=== PATIENT | female | born 1930 | race Caucasian/White ===

== ENCOUNTER 2017-02-01 17:43 | Observation (INO) | payer MEDICARE ==
[~2017-02-01] VITALS: Ht 180.3 cm; Wt 76.0 kg
[~2017-02-01 17:43] MED LIST: ASPI81 PO; CENTTAB9 PO; CEPH500C3 PO; LOVA10TA PO; MULTLIQ PO; TOPR50TA PO; VITA-13 PO; ZOLP1TAB32 PO
[2017-02-01 17:45] VITALS: BP 135/90; PULSE 60; RESP 18; O2SAT 100
--- NOTE | 2017-02-01 18:01 | PD ---
HPI Chief Complaint: Fall Time Seen by Provider: 17:46 Travel History International Travel<30 days: No Contact w/Intl Traveler<30days: No Traveled to known affect area: No History of Present Illness HPI Patient 86-year-old female with a history of repeated falls presents for by EMS from assisted living facility for evaluation of fall today. Patient states she tripped and fell. Denies any chest pain shortness of breath dizziness weakness or syncope. Patient states she fell and hit the left side of her head also complaining of left shoulder left knee pain. Denies any loss of consciousness. PFSH Past Medical History Blood Disorders: No Cancer: No Cardiovascular Problems: Yes Diminished Hearing: Yes (BILAT HEARING AIDS) Endocrine: No GERD: Yes Genitourinary: No Hypertension: Yes (HYPER T ) Musculoskeletal: No Neurologic: No Reproductive: Yes (HYSTERECTOMY ) Respiratory: No Immunizations Current: No Menopausal: Yes Past Surgical History Abdominal Surgery: No Appendectomy: Yes Gynecologic Surgery: Yes (PT DENIES ANY HISTORY OF UTERINE CA ) Hysterectomy: Yes Tonsillectomy: Yes Other Surgery: Yes (HYSTERECTOMY, UTERIOUS ) Social History Alcohol Use: Yes (1 DRINK A DAY.) Tobacco Use: No Substance Use: No Allergies-Medications (Allergen,Severity, Reaction): Coded Allergies: Codeine (Verified Adverse Reaction, Intermediate, NAUSEA, 02/01/17) Reported Meds & Prescriptions Reported Meds & Active Scripts Active Ultram (Tramadol HCl) 50 Mg Tab 50 Mg PO Q6H PRN Reported Clonidine (Clonidine HCl) 0.1 Mg Tab 0.1 Mg PO BID PRN D3 (Cholecalciferol) 1,000 Unit Cap 1,000 Units PO DAILY Aspirin EC (Aspirin) 81 Mg Tabdr 81 Mg PO DAILY Centrum (Multiple Vitamins W/ Minerals) 1 Tab 1 Tab PO DAILY Metoprolol Succinate ER 24 HR (Metoprolol Succinate) 50 Mg Tab 50 Mg PO BID Lovastatin 10 Mg Tab 10 Mg PO HS Review of Systems Except as stated in HPI: all other systems reviewed are Neg Physical Exam Narrative GENERAL: WD/WN in nad SKIN: Warm and dry. Hematoma and ecchymosis over left clavicle, left lateral proximal humerus and left knee. HEAD: Atraumatic. Normocephalic. EYES: Pupils equal and round. No scleral icterus. No injection or drainage. ENT: No nasal bleeding or discharge. Mucous membranes pink and moist. NECK: Trachea midline. No JVD. CARDIOVASCULAR: Regular rate and rhythm. RESPIRATORY: No accessory muscle use. Clear to auscultation. Breath sounds equal bilaterally. GASTROINTESTINAL: Abdomen soft, non-tender, nondistended. Hepatic and splenic margins not palpable. MUSCULOSKELETAL: Extremities without clubbing, cyanosis, or edema. Swelling and ecchymosis of the left proximal humerus, clavicle and left knee. Pulses motor and sensory intact distally in all four extremities. Compartments are soft. C/ T/L spine non-tender and no step off. NEUROLOGICAL: Awake and alert. No obvious cranial nerve deficits. Motor grossly within normal limits. Five out of 5 muscle strength in the arms and legs. Normal speech. PSYCHIATRIC: Appropriate mood and affect; insight and judgment normal. Data Data Last Documented VS Vital Signs Date Time Temp Pulse Resp B/P Pulse Ox O2 Delivery O2 Flow Rate FiO2 02/01/17 19:48 20 02/01/17 19:10 98.1 63 142/[address] Brain W/O Iv Contrast(Rout) (02/01/17 ) Ct Cerv Spine W/O Contrast (02/01/17 ) Shoulder, Complete (>2vws) (02/01/17 ) Humerus (Min 2vws) (02/01/17 ) Knee, Complete (4vws) (02/01/17 ) Hip, Uni(Ap&Lat) W Ap Pelvis (02/01/17 ) Tramadol (Ultram) (02/01/17 18:15) Chest, Single Ap (02/01/17 ) Splint Or Brace Apply/Monitor (02/01/17 19:32) Complete Blood Count With Diff (02/01/17 20:21) Comprehensive Metabolic Panel (02/01/17 20:21) Urinalysis - C+S If Indicated (02/01/17 20:21) Iv Access Insert/Monitor (02/01/17 20:21) Ecg Monitoring (02/01/17 20:21) Oximetry (02/01/17 20:21) Sodium Chloride 0.9% Flush (Ns Flush) (02/01/17 20:30) Admit Order (Ed Use Only) (02/01/17 ) MDM Medical Decision Making Medical Screen Exam Complete: Yes Emergency Medical Condition: Yes Differential Diagnosis Shoulder fracture, head injury, left knee fracture, strain, sprain, fall. Narrative Course Last 24 hours Impressions Shoulder X-Ray 02/01/17 Signed Impressions: Service Date/Time: Wednesday, February 01, 2017 18:45 - CONCLUSION: 1. Mildly comminuted and displaced fracture of the distal clavicle. No other fractures are seen. Gregory Crisostomo MD Knee X-Ray 02/01/17 Signed Impressions: Service Date/Time: Wednesday, February 01, 2017 18:53 - CONCLUSION: 1. Soft tissue swelling at the anterior knee. No acute bony abnormality identified. Gregory Crisostomo MD Humerus X-Ray 02/01/17 Signed Impressions: Service Date/Time: Wednesday, February 01, 2017 18:49 - CONCLUSION: 1. Mildly comminuted and displaced distal clavicle fracture. Negative for humerus fracture. Gregory Crisostomo MD Hip and Pelvis X-Ray 02/01/17 Signed Impressions: Service Date/Time: Wednesday, February 01, 2017 18:41 - CONCLUSION: 1. Remote healed fractures of the left superior and inferior pubic rami. No acute fracture identified. Gregory Crisostomo MD Head CT 02/01/17 Signed Impressions: Service Date/Time: Wednesday, February 01, 2017 18:27 - CONCLUSION: Normal examination for a patient of this age. No significant change has occurred. Gregory Crisostomo MD Chest X-Ray 02/01/17 Signed Impressions: Service Date/Time: Wednesday, February 01, 2017 18:56 - CONCLUSION: 1. Slightly comminuted distal left clavicle fracture. Linear scarring left lung base. Gregory Crisostomo MD Cervical Spine CT 02/01/17 Signed Impressions: Service Date/Time: Wednesday, February 01, 2017 18:27 - CONCLUSION: 1. No acute findings. Mild degenerative disc disease and facet arthropathy. No significant bony canal stenosis. Gregory Crisostomo MD Patient appears well and in nad. Ultram given, patient comfortable. Patient difficult to ambulate, uses walker at [facility]. Patient son arrives and also concerned for patient safety at [facility]. I agree. She has no safe discharge given cannot use walker as will be in sling. Discussed with Jaydon KWON for [facility] for admission. Diagnosis Primary Impression: Clavicle fracture, shaft Qualified Code: S42.022A - Closed displaced fracture of shaft of left clavicle , initial encounter Admitting Information Admitting Physician Requests: Observation Referrals: Blu Golden MD Med/Other Pt SpecificInfo: Prescription(s) given Scripts Tramadol (Ultram)50 Mg Tab50 Mg PO Q6H PRN (PAIN) #12 TAB Ref 0 Prov:Alon Lopez MD 02/01/17 Disposition: 01 DISCHARGE HOME Condition: Stable Alon Lopez MD Feb 01, 2017 18:01
[2017-02-01] MEDS ORDERED: CHOL100025 CHEW (18:03)
[2017-02-01] MEDS ORDERED: ASPI81CH37 CHEW (18:03)
[2017-02-01] MEDS ORDERED: METO50TA11 PO (18:03)
[2017-02-01] MEDS ORDERED: AMBI5TAB PO (18:03)
[2017-02-01] MEDS ORDERED: LOVA10TA PO (18:03)
[2017-02-01] MEDS ORDERED: MULT-6 PO (18:04)
[2017-02-01] MEDS ORDERED: traMADol HCL 50 MG TAB PO ONE (18:15)
--- NOTE | 2017-02-01 18:55 | RADRPT ---
EXAM DATE/TIME: 02/01/2017 18:27 [facility] COMPARISON: CT BRAIN W/O CONTRAST, June 16, 2010, 12:21. INDICATIONS : Trauma; fall. RADIATION DOSE: 37.60 CTDIvol (mGy) MEDICAL HISTORY : Hypertension. Cardiovascular disease SURGICAL HISTORY : Hysterectomy. Appendectomy.Tonsillectomy. ENCOUNTER: Initial ACUITY: 1 day PAIN SCALE: 5/10 LOCATION: cranial TECHNIQUE: Multiple contiguous axial images were obtained of the head. Using automated exposure control and adj ustment of the mA and/or kV according to patient size, radiation dose was kept as low as reasonably a chievable to obtain optimal diagnostic quality images. FINDINGS: CEREBRUM: The ventricles are normal for age. No evidence of midline shift, mass lesion, hemorrhage or acute in farction. No extra-axial fluid collections are seen. POSTERIOR FOSSA: The cerebellum and brainstem are intact. The 4th ventricle is midline. The cerebellopontine angle i s unremarkable. EXTRACRANIAL: The visualized portion of the orbits is intact. SKULL: The calvaria is intact. No evidence of skull fracture. CONCLUSION: Normal examination for a patient of this age. No significant change has occurred. Gregory Crisostomo MD on February 01, 2017 at 18:53 Board Certified Radiologist. This report was verified electronically.
--- NOTE | 2017-02-01 18:58 | RADRPT ---
EXAM DATE/TIME: 02/01/2017 18:27 [facility] COMPARISON: No previous studies available for comparison. INDICATIONS : Trauma; fall. RADIATION DOSE: 16.45 CTDIvol (mGy) MEDICAL HISTORY : Hypertension. Cardiovascular disease SURGICAL HISTORY : Hysterectomy. Appendectomy.Tonsillectomy. ENCOUNTER: Initial ACUITY: 1 day PAIN SCALE: 5/10 LOCATION: neck TECHNIQUE: Volumetric scanning of the cervical spine was performed. Multiplanar reconstructions in the sagittal, coronal and oblique axial planes were performed. Using automated exposure control and adjustment o f the mA and/or kV according to patient size, radiation dose was kept as low as reasonably achievable to obtain optimal diagnostic quality images. FINDINGS: VERTEBRAE: Normal vertebral body height. ALIGNMENT: No evidence of subluxation. C2-C3: The bony spinal canal is normal in size. No evidence of disc bulge or herniation. The neural forami na are bilaterally patent. C3-C4: The bony spinal canal is normal in size. No evidence of disc bulge or herniation. The neural forami na are bilaterally patent. C4-C5: The bony spinal canal is normal in size. No evidence of disc bulge or herniation. The neural forami na are bilaterally patent. C5-C6: The bony spinal canal is normal in size. No evidence of disc bulge or herniation. The neural forami na are bilaterally patent. C6-C7: The bony spinal canal is normal in size. No evidence of disc bulge or herniation. The neural forami na are bilaterally patent. C7-T1: The bony spinal canal is normal in size. No evidence of disc bulge or herniation. The neural forami na are bilaterally patent. CONCLUSION: 1. No acute findings. Mild degenerative disc disease and facet arthropathy. No significant bony canal stenosis. Gregory Crisostomo MD on February 01, 2017 at 18:54 Board Certified Radiologist. This report was verified electronically.
[2017-02-01 19:10] VITALS: BP 142/72; PULSE 63; RESP 20; TEMP 98.1; O2SAT 97
--- NOTE | 2017-02-01 19:32 | RADRPT ---
EXAM DATE/TIME: 02/01/2017 18:41 [facility] COMPARISON: No previous studies available for comparison. INDICATIONS : Fall. MEDICAL HISTORY : None. SURGICAL HISTORY : None. ENCOUNTER: Initial ACUITY: 1 day PAIN SCORE: 0/10 LOCATION: Left hip FINDINGS: Remote healed fractures of left pubic bone and superior and inferior pubic rami. Mild osteoarthritis of the left hip. No acute fracture or dislocation. CONCLUSION: 1. Remote healed fractures of the left superior and inferior pubic rami. No acute fracture identified . Gregory Crisostomo MD on February 01, 2017 at 19:29 Board Certified Radiologist. This report was verified electronically.
--- NOTE | 2017-02-01 19:33 | RADRPT ---
EXAM DATE/TIME: 02/01/2017 18:45 [facility] COMPARISON: No previous studies available for comparison. INDICATIONS : Fall. MEDICAL HISTORY : None. SURGICAL HISTORY : None. ENCOUNTER: Initial ACUITY: 1 day PAIN SCORE: 0/10 LOCATION: Left shoulder FINDINGS: Multiple view examination of the left shoulder demonstrates slightly comminuted fracture distal clavi khadijah. No other fractures identified. Osteopenia. CONCLUSION: 1. Mildly comminuted and displaced fracture of the distal clavicle. No other fractures are seen. Gregory Crisostomo MD on February 01, 2017 at 19:31 Board Certified Radiologist. This report was verified electronically.
--- NOTE | 2017-02-01 19:34 | RADRPT ---
EXAM DATE/TIME: 02/01/2017 18:49 [facility] COMPARISON: No previous studies available for comparison. INDICATIONS : Fall. MEDICAL HISTORY : None. SURGICAL HISTORY : None. ENCOUNTER: Initial ACUITY: 1 day PAIN SCORE: 0/10 LOCATION: Left Humerus FINDINGS: Two view examination of the left humerus demonstrates mildly comminuted and displaced fractures of th e distal left clavicle. No dislocation. No other fractures are seen. CONCLUSION: 1. Mildly comminuted and displaced distal clavicle fracture. Negative for humerus fracture. Gregory Crisostomo MD on February 01, 2017 at 19:32 Board Certified Radiologist. This report was verified electronically.
--- NOTE | 2017-02-01 19:38 | RADRPT ---
EXAM DATE/TIME: 02/01/2017 18:53 [facility] COMPARISON: No previous studies available for comparison. INDICATIONS : Fall. MEDICAL HISTORY : None. SURGICAL HISTORY : None. ENCOUNTER: Initial ACUITY: 1 day PAIN SCORE: 0/10 LOCATION: Left knee FINDINGS: There is prepatellar and pretibial soft tissue swelling. Bones are osteopenic. No acute fracture is i dentified. CONCLUSION: 1. Soft tissue swelling at the anterior knee. No acute bony abnormality identified. Gregory Crisostomo MD on February 01, 2017 at 19:33 Board Certified Radiologist. This report was verified electronically.
--- NOTE | 2017-02-01 19:39 | RADRPT ---
EXAM DATE/TIME: 02/01/2017 18:56 [facility] COMPARISON: No previous studies available for comparison. INDICATIONS : Fall. MEDICAL HISTORY : None. SURGICAL HISTORY : None. ENCOUNTER: Initial ACUITY: 1 day PAIN SCORE: 0/10 LOCATION: Bilateral chest FINDINGS: A single view of the chest demonstrates the lungs to be symmetrically aerated without evidence of mas s, infiltrate or effusion. Minimal linear scarring left lung base. Slightly comminuted distal left cl avicle fracture. CONCLUSION: 1. Slightly comminuted distal left clavicle fracture. Linear scarring left lung base. Gregory Crisostomo MD on February 01, 2017 at 19:37 Board Certified Radiologist. This report was verified electronically.
[2017-02-01] MEDS ORDERED: ULTR50TA5 PO (19:53)
[2017-02-01] MEDS ORDERED: SODIUM CHLORIDE 0.9% FLUSH 10 ML FLUSH IV FLUSH PRN ×2 (20:30→22:15)
[2017-02-01] MEDS ORDERED: METOPROLOL TARTRATE 50 MG TAB PO ONE (20:45)
[2017-02-01 20:46] VITALS: RESP 20; O2SAT 97
[2017-02-01] MEDS ORDERED: D31000CA PO (20:59)
[2017-02-01] MEDS ORDERED: ASPI81TA11 PO (20:59)
[2017-02-01] MEDS ORDERED: CLON0.1T PO (20:59)
[2017-02-01 21:07] LABS: AUTOMATED NEUTROPHIL # 15.8 TH/MM3 (1.8-7.7); BASOPHIL % 0.1 % (0.0-2.0); EOSINOPHIL % 0.1 % (0.0-4.0); HEMATOCRIT 34.4 % (35.0-46.0); HEMO FLAGS DIFF FINAL; LYMPH % 4.7 % (9.0-44.0); LYMPHOCYTE # 0.8 TH/MM3 (1.0-4.8); MEAN CELL VOLUME 90.2 FL (80.0-100.0); MEAN CORPUSCULAR HGB CONC 34.4 % (32.0-36.0); MONO % 6.2 % (0.0-8.0); NEUT % 88.9 % (16.0-70.0); PLATELET COUNT 267 TH/MM3 (150-450); RED BLOOD COUNT 3.82 MIL/MM3 (4.00-5.30); RED CELL DISTRIBUTION WIDTH 13.2 % (11.6-17.2); WHITE BLOOD COUNT 17.8 TH/MM3 (4.0-11.0)
[2017-02-01 21:44] LABS: ANION GAP 8 MEQ/L (5-15); AST (GOT) 19 U/L (15-37); BICARBONATE 29.6 MEQ/L (21.0-32.0); BLOOD UREA NITROGEN 18 MG/DL (7-18); CHLORIDE 100 MEQ/L (98-107); GLOMERULAR FILTRATION RATE 60 ML/MIN (>89); POTASSIUM 3.9 MEQ/L (3.5-5.1); SODIUM (NA) 138 MEQ/L (136-145)
[2017-02-01 21:47] LABS: ALKALINE PHOSPHATASE 53 U/L (45-117); ALT (GPT) 24 U/L (10-53); TOTAL BILIRUBIN ADULT 0.4 MG/DL (0.2-1.0)
[2017-02-01] MEDS ORDERED: traMADol HCL 50 MG TAB PO PRN (22:15)
[2017-02-01] MEDS ORDERED: ACETAMINOPHEN 325 MG TAB PO PRN (22:15)
[2017-02-01] MEDS ORDERED: ONDANSETRON HCL 4 MG/2 ML VIAL IVP PRN (22:15)
[2017-02-01] MEDS ORDERED: NALOXONE HCL 0.4 MG/ML AMP IV PRN (22:15)
[2017-02-01] MEDS ORDERED: SENNOSIDES 8.6 MG TAB PO PRN (22:15)
[2017-02-01] MEDS: SODIUM CHLOR 0.9% 1000 ML INJ 1,000 ML IV SCH (22:20)
[2017-02-01 22:34] VITALS: BP 124/59; TEMP 98.3
[2017-02-01 23:50] VITALS: BP 129/75; PULSE 83; RESP 16; TEMP 97.6; O2SAT 98
[2017-02-02] VITALS (10 sets, daily range): BP systolic 120–164; BP diastolic 6–82; PULSE 57–82; RESP 17–20; TEMP 96.7–97.9; O2SAT 94–100
[2017-02-02] MEDS ORDERED: TEMAZEPAM 7.5 MG CAP PO PRN (01:00)
[2017-02-02 03:10] LABS: BLOOD, URINE NEG (NEG); COMMENT (UR) CULT NOT INDICATED; CULTURE IF INDICATED CULT NOT INDICATED; GLUCOSE,URINE NEG (NEG); HYALINE CAST, URINE 1 /lpf (RARE); KETONE, URINE 10 mg/dL (NEG); MUCUS URINE FEW /lpf (OCC); NITRITE,URINE NEG (NEG); PH, URINE 5.5 (5.0-8.5); SQUAMOUS EPITHELIAL CELL URINE <1 /hpf (0-5); URINE COLOR YELLOW (YELLW/STRAW)
[2017-02-02 05:00] LABS: AUTOMATED NEUTROPHIL # 7.7 TH/MM3 (1.8-7.7); BASOPHIL % 0.1 % (0.0-2.0); EOSINOPHIL % 0.2 % (0.0-4.0); HEMATOCRIT 30.8 % (35.0-46.0); HEMO FLAGS DIFF FINAL; LYMPH % 9.8 % (9.0-44.0); MEAN CELL VOLUME 91.5 FL (80.0-100.0); MEAN CORPUSCULAR HEMOGLOBIN 31.3 PG (27.0-34.0); MEAN CORPUSCULAR HGB CONC 34.2 % (32.0-36.0); MONO % 11.4 % (0.0-8.0); NEUT % 78.5 % (16.0-70.0); PLATELET COUNT 216 TH/MM3 (150-450); RED BLOOD COUNT 3.36 MIL/MM3 (4.00-5.30); RED CELL DISTRIBUTION WIDTH 13.7 % (11.6-17.2); WHITE BLOOD COUNT 9.8 TH/MM3 (4.0-11.0)
[2017-02-02 05:02] LABS: BICARBONATE 25.6 MEQ/L (21.0-32.0); POTASSIUM 3.8 MEQ/L (3.5-5.1)
--- NOTE | 2017-02-02 05:23 | MH ---
cc: GERARDO LIZAMA DATE OF ADMISSION: 02/01/2017 CHIEF COMPLAINT Fall, left shoulder pain. HISTORY OF PRESENT ILLNESS This is a pleasant 86 year-old female who lives at a local independent living facility. The patient tripped and fell. She landed on her left shoulder. She was able to sit up and scoot over to call for help. She also had some left knee pain. She did hit her head but did not lose consciousness. She is not complaining of any head pain at this time. She was seen by Dr. Lopez. X-rays revealed a fractured clavicle and it was felt that the patient was not safe to go home tonight. She was placed in a sling and is being admitted to observation for further care. The pain is currently stable. She really has no other complaints at this time. MEDICATIONS ON ADMISSION: Please see chart. ALLERGIES: CODEINE CAUSES NAUSEA PAST MEDICAL HISTORY: Significant for: 1. Hard of hearing. 2. GERD. 3. Hypertension. 4. 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 5. History of shingles. PAST SURGICAL HISTORY: 1. Hysterectomy. 2. Tonsillectomy. 3. Appendectomy. 4. History of pelvic fractures treated conservatively. SOCIAL HISTORY: She used to smoke, quit at the age of 45. Alcohol, admits to one beer a day. FAMILY HISTORY: Noncontributory. REVIEW OF SYSTEMS: The patient states her bowels are irregular. This has been this way for many years. She does follow up with Dr. Phil Barbosa. She has had colonoscopies and has had polyps removed. She does have a rolling walker which she uses. She has not had the shingles vaccine yet. She has gained weight recently since being at the independent living facility, as the food is very good there. She states she has put on about 30 pounds. She lost a low of weight after her pelvic fractures. She denies any other recent changes in her health or 10 point review of systems. PHYSICAL EXAMINATION: VITAL SIGNS: Afebrile. Pulse 63, respiratory rate 16, blood pressure 129/75. O2 sat is 98% on room air. GENERAL: This is an 86 year-old female resting comfortably in bed, in no acute distress. HEENT: Moist mucous membranes. No jaundice. NECK: Supple. CARDIOVASCULAR SYSTEM: Regular rate and rhythm. RESPIRATORY SYSTEM: Lungs are clear. GASTROINTESTINAL SYSTEM: Bowel sounds present. No point tenderness, guarding or rebound. GENITOURINARY SYSTEM: No CVA tenderness. No suprapubic tenderness. MUSCULOSKELETAL SYSTEM: Left knee is bruised and swollen with mild generalized tenderness. No calf tenderness. Distal pulses are palpable. Homans' sign negative. Left shoulder shows a lot of ecchymosis and decreased range of motion. Distal neurovascular is intact. Right upper extremity appears to be within normal limits. NEUROLOGIC: Hard of hearing, awake, alert, oriented x4. Speech is clear and fluent. No gross focal deficits are observed. INVESTIGATIONS: White count 17.8, hemoglobin 11.8, platelet count 267. Sodium 138, potassium 3.9, BUN 18, creatinine 0.89, GFR 60, random glucose is 140. Urinalysis shows large amount of occult blood. Culture is not indicated. IMAGING STUDIES: CT of cervical spine, no acute findings, mild degenerative changes. Chest x-ray, slightly comminuted distal left clavicle fracture, linear scarring of the left lung base. CT scan of the brain normal. X-rays of the pelvis, remote healed fractures of the left superior inferior pubic rami. Knee x-ray, soft tissue swelling at the anterior knee, no acute bony abnormality is noted. Shoulder x-ray, shows the fractured clavicle. No other fractures are seen. IMPRESSION: 1. Status post fall with a left fractured clavicle, fusion of the left knee. 2. Leukocytosis. 3. Chronic kidney disease. 4. Hypertension. 5. Hyperlipidemia. DISCUSSION: The patient is placed on observation status by Dr. Lizama's service. The plan is to observe her overnight, will have physical therapy and case management evaluate her. Control her pain. Resume her regular medications as indicated. Attempt to discharge her when she is medically stable. She may need to go to short-term rehab. Please see the chart for further details. Dictated by: Jim Whitney PA-C Gerardo Lizama MD JP/JOSÉ MIGUEL /12:45 AM /4:59 AM PT SEEN AND EXAMINED IN DETAIL FACE TO FACCE TIME SPENT WITH PT CHART REVIEWED INCLUDING LABS MEDS AND RAD DATA AND NOTES DW RN DW PA ABOUT COSME OF CARE DW PT AND FAMILY AT BEDSIDE COND GUARDED MTDD
[2017-02-02] MEDS: HEPARIN SODIUM - SQ 10,000 UNITS/ML VIAL SQ SCH ×2 (09:00→21:00)
[2017-02-02] MEDS ORDERED: cloNIDine HCL 0.1 MG TAB PO PRN (10:00)
[2017-02-02] MEDS: ASPIRIN EC 81 MG TABEC PO SCH (10:22)
[2017-02-02] MEDS: METOPROLOL SUCCINATE 50 MG EXTENDED RELEASE TAB PO SCH ×2 (10:23→20:59)
[2017-02-02] MEDS: SODIUM CHLORIDE 0.9% FLUSH 10 ML FLUSH IV FLUSH SCH ×2 (10:24→21:00)
[2017-02-02] MEDS: SODIUM CHLOR 0.9% 1000 ML INJ 1,000 ML IV SCH (13:57)
[2017-02-02] MEDS: PRAVASTATIN SOD 10 MG TAB PO SCH (20:59)
[2017-02-03] MEDS: SODIUM CHLOR 0.9% 1000 ML INJ 1,000 ML IV SCH (02:36)
[2017-02-03 03:55] VITALS: BP 140/66; PULSE 71; RESP 17; TEMP 96.7; O2SAT 100
[2017-02-03 07:08] LABS: AUTOMATED NEUTROPHIL # 3.8 TH/MM3 (1.8-7.7); BASOPHIL % 0.3 % (0.0-2.0); EOSINOPHIL # 0.1 TH/MM3 (0-0.4); HEMO FLAGS DIFF FINAL; LYMPH % 22.1 % (9.0-44.0); LYMPHOCYTE # 1.3 TH/MM3 (1.0-4.8); MEAN CELL VOLUME 90.5 FL (80.0-100.0); MEAN CORPUSCULAR HEMOGLOBIN 31.3 PG (27.0-34.0); MEAN CORPUSCULAR HGB CONC 34.6 % (32.0-36.0); MONO % 12.6 % (0.0-8.0); PLATELET COUNT 217 TH/MM3 (150-450); RED BLOOD COUNT 3.43 MIL/MM3 (4.00-5.30); RED CELL DISTRIBUTION WIDTH 13.4 % (11.6-17.2)
[2017-02-03 08:00] VITALS: BP 149/69; PULSE 55; RESP 17; TEMP 96.7; O2SAT 99
[2017-02-03] MEDS: SODIUM CHLORIDE 0.9% FLUSH 10 ML FLUSH IV FLUSH SCH ×2 (09:00→20:47)
[2017-02-03] MEDS: CHOLECALCIFEROL (VIT D3) 1000 UNIT TAB PO SCH (10:55)
[2017-02-03] MEDS: ASPIRIN EC 81 MG TABEC PO SCH (10:55)
[2017-02-03] MEDS: MULTIVITAMINS/MINERALS THERAPEUTIC TAB PO SCH (10:55)
[2017-02-03] MEDS: METOPROLOL SUCCINATE 50 MG EXTENDED RELEASE TAB PO SCH ×2 (10:56→20:47)
[2017-02-03] MEDS: HEPARIN SODIUM - SQ 10,000 UNITS/ML VIAL SQ SCH ×2 (10:56→20:46)
[2017-02-03 12:00] VITALS: BP 119/55; PULSE 60; RESP 17; TEMP 95.7; O2SAT 98
--- NOTE | 2017-02-03 13:06 | HHI.FF ---
Face to Face Verification Diagnosis: (1) Clavicle fracture, shaft Physical Therapy Order: Evaluate and Treat Home Health Nursing Order: Medical education Nursing assessment with vital signs I have seen patient Cindy Chandler on 02/03/17. My clinical findings support the need for the requested home health care services because: Limited ability to care for self Need for psychosocial assistance High risk of falls I certify that my clinical findings support that this patient is homebound because: Unsteady gait/balance Apryl Hoyos Feb 03, 2017 13:06
--- NOTE | 2017-02-03 15:59 | HHI.PR ---
Subjective Subjective Remarks Left shoulder painful, medications are helping No chest pain No shortness of breath No fever Case management in to speak to patient and family, patient does not meet inpatient criteria. Patient is unable to go to SNF due to status of admission. Multiple questions asked, discussed discharge plan at length Review of Systems Constitutional Constitutional Remarks 12 point review of systems completed, negative except as noted above Vitals/Results Intake & Output 02/02/17 02/02/17 02/03/17 14:59 22:59 06:59 Intake Total 909 ml Balance 909 ml IV Total 909 ml Vital Signs Vital Signs Date Time Temp Pulse Resp B/P Pulse Ox O2 Delivery O2 Flow Rate FiO2 02/03/17 08:00 96.7 55 17 149/69 99 02/03/17 03:55 96.7 71 17 140/66 100 02/02/17 22:30 96.7 77 17 145/68 98 02/02/17 20:56 97.6 82 18 138/66 98 CBC/BMP: 02/03/17 0557 02/02/17 0420 Lab Results Laboratory Tests Test 02/03/17 05:57 White Blood Count 6.0 TH/MM3 Red Blood Count 3.43 MIL/MM3 Hemoglobin 10.7 GM/DL Hematocrit 31.0 % Mean Corpuscular Volume 90.5 FL Mean Corpuscular Hemoglobin 31.3 PG Mean Corpuscular Hemoglobin 34.6 % Concent Red Cell Distribution Width 13.4 % Platelet Count 217 TH/MM3 Mean Platelet Volume 9.3 FL Neutrophils (%) (Auto) 64.0 % Lymphocytes (%) (Auto) 22.1 % Monocytes (%) (Auto) 12.6 % Eosinophils (%) (Auto) 1.0 % Basophils (%) (Auto) 0.3 % Neutrophils # (Auto) 3.8 TH/MM3 Lymphocytes # (Auto) 1.3 TH/MM3 Monocytes # (Auto) 0.8 TH/MM3 Eosinophils # (Auto) 0.1 TH/MM3 Basophils # (Auto) 0.0 TH/MM3 CBC Comment DIFF FINAL Differential Comment Physical Exam General General Appearance: Well Developed, Well Nourished, No Acute Distress, Comfortable Eyes Eye Exam: Pupils Equal, Pupils Reactive Ears & Nose Ears & Nose Exam: Nasal Mucosa [place] Throat Throat Exam: Oral Mucosa [place] & Moist Neck Neck Exam: Neck Supple, Trachea Midline Pulmonary Resp Exam: Clear Bilaterally Cardiology CV Exam: Regular Gastrointestinal/Abdomen GI Exam: Soft, Non-Tender, Bowel Sounds Present, Non-Distended Musculoskeletal MS Remarks Left shoulder with anterior bruising, limited range of motion, able to range of motion Left shoulder with sling in place Integumentary Skin Exam: Warm, Dry Extremeties Extremities Exam: No Edema, Pedal Pulses Palpable Neurologic Neuro Exam: Alert, Awake, Oriented, Speech Clear, No Focal Deficits Psychiatric Psych Exam: Appropriate Responses VTE Prophylaxis VTE Prophylaxis Device: SCDs VTE Prophylaxis Meds: Heparin Assessment/Plan Assessment/Plan IMPRESSION: 1. Status post fall with a left fractured clavicle, fusion of the left knee. 2. Leukocytosis. 3. Chronic kidney disease. 4. Hypertension. 5. Hyperlipidemia. Plan: Continue with sling to left shoulder Pain management PT eval and tx Continue home medications Heparin SCD for DVT prophylaxis Case management for discharge planning, patient unable to go to [facility] due to increased needs. Does not meet criteria for CIR. Patient and family are willing to pay for a SNF if needed, they need to find out cost first. The other option is for private caregiver at [facility]. Case management will try to find facility. D/W CM D/W pt and family D/W Dr. Lizama D/W RN This patient was seen by myself and Dr. Lizama,this note is written on his behalf Apryl Hoyos Feb 03, 2017 15:59
[2017-02-03 16:00] VITALS: BP 112/62; PULSE 81; RESP 18; TEMP 97.4; O2SAT 100
[2017-02-03 20:45] VITALS: BP 127/67; PULSE 53; RESP 18; TEMP 96.5; O2SAT 97
[2017-02-03] MEDS: PRAVASTATIN SOD 10 MG TAB PO SCH (20:46)
[2017-02-04 00:40] VITALS: BP 136/76; PULSE 65; RESP 17; TEMP 96.1; O2SAT 97
[2017-02-04 04:30] VITALS: BP 147/70; PULSE 60; RESP 17; TEMP 96.7; O2SAT 98
[2017-02-04 08:00] VITALS: BP 134/68; PULSE 53; RESP 16; TEMP 97; O2SAT 98
[2017-02-04] MEDS: CHOLECALCIFEROL (VIT D3) 1000 UNIT TAB PO SCH (08:31)
[2017-02-04] MEDS: ASPIRIN EC 81 MG TABEC PO SCH (08:31)
[2017-02-04] MEDS: MULTIVITAMINS/MINERALS THERAPEUTIC TAB PO SCH (08:31)
[2017-02-04] MEDS: METOPROLOL SUCCINATE 50 MG EXTENDED RELEASE TAB PO SCH (08:31)
[2017-02-04] MEDS: HEPARIN SODIUM - SQ 10,000 UNITS/ML VIAL SQ SCH (08:32)
[2017-02-04] MEDS: SODIUM CHLORIDE 0.9% FLUSH 10 ML FLUSH IV FLUSH SCH (09:00)
[2017-02-04 12:00] VITALS: BP 105/68; PULSE 63; RESP 16; TEMP 97; O2SAT 96
--- NOTE | 2017-02-04 12:54 | HHI.PR ---
Subjective Subjective Remarks Left shoulder painful, medications are helping No chest pain No shortness of breath No fever left knee bruised, tender. no acute changes overnight family at [facility], they have chosen SNF Review of Systems Constitutional Constitutional Remarks 12 point review of systems completed, negative except as noted above Vitals/Results Intake & Output 02/03/17 02/03/17 02/04/17 15:00 23:00 07:00 Intake Total 767 ml 351 ml 120 ml Output Total 700 ml Balance 67 ml 351 ml 120 ml Intake Oral 720 ml 240 ml 120 ml IV Total 47 ml 111 ml Output Urine Total 700 ml # Voids 2 1 2 # Bowel Movements 0 0 Vital Signs Vital Signs Date Time Temp Pulse Resp B/P Pulse Ox O2 Delivery O2 Flow Rate FiO2 02/04/17 08:00 97.0 53 16 134/68 98 02/04/17 04:30 96.7 60 17 147/70 98 02/04/17 00:40 96.1 65 17 136/76 97 02/03/17 20:45 96.5 53 18 127/67 97 02/03/17 16:00 97.4 81 18 112/62 100 CBC/BMP: 02/03/17 0557 02/02/17 0420 Physical Exam General General Appearance: Well Developed, Well Nourished, No Acute Distress, Comfortable Eyes Eye Exam: Pupils Equal, Pupils Reactive Ears & Nose Ears & Nose Exam: Nasal Mucosa Clover Throat Throat Exam: Oral Mucosa Clover & Moist Neck Neck Exam: Neck Supple, Trachea Midline Pulmonary Resp Exam: Clear Bilaterally Cardiology CV Exam: Regular Gastrointestinal/Abdomen GI Exam: Soft, Non-Tender, Bowel Sounds Present, Non-Distended Musculoskeletal MS Remarks Left shoulder with anterior bruising, limited range of motion, able to range of motion Left shoulder with sling in place left knee bruised, tender with ROM Integumentary Skin Exam: Warm, Dry Extremeties Extremities Exam: No Edema, Pedal Pulses Palpable Neurologic Neuro Exam: Alert, Awake, Oriented, Speech Clear, No Focal Deficits Psychiatric Psych Exam: Appropriate Responses VTE Prophylaxis VTE Prophylaxis Device: SCDs VTE Prophylaxis Meds: Heparin Assessment/Plan Assessment/Plan IMPRESSION: 1. Status post fall with a left fractured clavicle, fusion of the left knee. 2. Leukocytosis. 3. Chronic kidney disease. 4. Hypertension. 5. Hyperlipidemia. Plan: Continue with sling to left shoulder Pain management PT eval and tx Continue home medications Heparin SCD for DVT prophylaxis CM for dc planning, family has chosen SNF, they will pay out of pocket Discharge to SNF when bed arranged F/U PCP 1 week Diet -heart healthy Activity-OOB with assistance, wear sling to left arm D/W CM D/W pt and family D/W Dr. Lizama D/W RN This patient was seen by myself and Dr. Lizama,this note is written on his behalf Apryl Hoyos Feb 04, 2017 12:54
--- NOTE | 2017-02-04 13:20 | HHI.DS ---
Discharge Summary Admission Date Feb 01, 2017 at 20:24 Discharge Date: Feb 04, 2017 Admitting Diagnosis Fall, Clavicle fracture. (1) Clavicle fracture, shaft (2) GERD (gastroesophageal reflux disease) (3) Hypertension (4) DJD (degenerative joint disease) (5) [place]ACHE (hard of hearing) CBC/BMP: 02/03/17 0557 02/02/17 0420 Significant Findings Laboratory Tests Test 02/01/17 02/02/17 02/02/17 02/03/17 20:40 02:20 04:20 05:57 White Blood Count 17.8 TH/MM3 (4.0-11.0) Red Blood Count 3.82 MIL/MM3 3.36 MIL/MM3 3.43 MIL/MM3 (4.00-5.30) (4.00-5.30) (4.00-5.30) Hematocrit 34.4 % 30.8 % 31.0 % (35.0-46.0) (35.0-46.0) (35.0-46.0) Neutrophils (%) (Auto) 88.9 % 78.5 % (16.0-70.0) (16.0-70.0) Lymphocytes (%) (Auto) 4.7 % (9.0-44.0) Neutrophils # (Auto) 15.8 TH/MM3 (1.8-7.7) Lymphocytes # (Auto) 0.8 TH/MM3 (1.0-4.8) Monocytes # (Auto) 1.1 TH/MM3 1.1 TH/MM3 (0-0.9) (0-0.9) Estimat Glomerular Filtration 60 ML/MIN (>89) 70 ML/MIN (>89) Rate Random Glucose 140 MG/DL 111 MG/DL (74-106) (74-106) Total Protein 6.2 GM/DL (6.4-8.2) Urine Ketones 10 mg/dL (NEG) Urine Mucus FEW /lpf (OCC) Hemoglobin 10.5 GM/DL 10.7 GM/DL (11.6-15.3) (11.6-15.3) Monocytes (%) (Auto) 11.4 % 12.6 % (0.0-8.0) (0.0-8.0) Calcium Level 8.3 MG/DL (8.5-10.1) Imaging Last Impressions Shoulder X-Ray 02/01/17 Signed Impressions: Service Date/Time: Wednesday, February 01, 2017 18:45 - CONCLUSION: 1. Mildly comminuted and displaced fracture of the distal clavicle. No other fractures are seen. Gregory Crisostomo MD Knee X-Ray 02/01/17 Signed Impressions: Service Date/Time: Wednesday, February 01, 2017 18:53 - CONCLUSION: 1. Soft tissue swelling at the anterior knee. No acute bony abnormality identified. Gregory Crisostomo MD Humerus X-Ray 02/01/17 Signed Impressions: Service Date/Time: Wednesday, February 01, 2017 18:49 - CONCLUSION: 1. Mildly comminuted and displaced distal clavicle fracture. Negative for humerus fracture. Gregory Crisostomo MD Hip and Pelvis X-Ray 02/01/17 Signed Impressions: Service Date/Time: Wednesday, February 01, 2017 18:41 - CONCLUSION: 1. Remote healed fractures of the left superior and inferior pubic rami. No acute fracture identified. Gregory Crisostomo MD Head CT 02/01/17 Signed Impressions: Service Date/Time: Wednesday, February 01, 2017 18:27 - CONCLUSION: Normal examination for a patient of this age. No significant change has occurred. Gregory Crisostomo MD Chest X-Ray 02/01/17 Signed Impressions: Service Date/Time: Wednesday, February 01, 2017 18:56 - CONCLUSION: 1. Slightly comminuted distal left clavicle fracture. Linear scarring left lung base. Gregory Crisostomo MD Cervical Spine CT 02/01/17 Signed Impressions: Service Date/Time: Wednesday, February 01, 2017 18:27 - CONCLUSION: 1. No acute findings. Mild degenerative disc disease and facet arthropathy. No significant bony canal stenosis. Gregory Crisostomo MD Pt Condition on Discharge: Stable Discharge Disposition: Discharge to SNF Discharge Instructions DIET: Follow Instructions for: Heart Healthy Diet Activities you can perform: Weight Bearing as Giancarlo Follow up Referrals: PCP Follow-up Continued Medications: Aspirin DR (Aspirin EC) 81 Mg Tabdr 81 MG PO DAILY Ref 0 TAB Cholecalciferol (D3) 1,000 Unit Cap 1000 UNITS PO DAILY Clonidine (Clonidine) 0.1 Mg Tab 0.1 MG PO BID PRN SBP>160 DBP>100 #60 Ref 0 TAB Lovastatin (Lovastatin) 10 Mg Tab 10 MG PO HS Cholesterol Management #0 Ref 0 TAB Metoprolol Succinate ER 24 HR (Metoprolol Succinate ER 24 HR) 50 Mg Tab 50 MG PO BID #0 Ref 0 TAB Multiple Vitamins W/ Minerals (Centrum) 1 Tab 1 TAB PO DAILY Nutritional Supplement Ref 0 TAB Discontinued Medications: Tramadol (Ultram) 50 Mg Tab 50 MG PO Q6H PRN PAIN #12 Ref 0 TAB Apryl Hoyos Feb 04, 2017 13:20
--- NOTE | 2017-02-04 13:20 | HHI.DCPOC ---
Discharge Care Plan Diagnosis: (1) Clavicle fracture, shaft (2) GERD (gastroesophageal reflux disease) (3) Hypertension Your Health Problems Are: Difficulty with ADL Inflammation Swelling Goals to Promote Your Health * To prevent worsening of your condition and complications * To maintain your health at the optimal level Directions to Meet Your Goals Take your medications as prescribed Follow your dietary instruction Follow activity as directed Keep your appointments as scheduled Take your immunizations and boosters as scheduled If your symptoms worsen call your PCP, if no PCP go to Urgent Care Center or Emergency Room Smoking is Dangerous to Your Health. Avoid second hand smoke Call the 24-hour hour crisis hotline for domestic abuse at Apryl Hoyos Feb 04, 2017 13:19
== END 2017-02-04 16:43 ==
LOC: NEPA 17:43 → NEDA 20:24 → NEPFCDU 23:03 → N06A 02-02 22:30
PROVIDERS: ADMIT Specialist; ATTEND Specialist
DX: S42.022A Displaced fracture of shaft of left clavicle, initial encounter for closed fracture (principal); M25.562 Pain in left knee; K21.9 Gastro-esophageal reflux disease without esophagitis; M51.36 Other intervertebral disc degeneration, lumbar region; I12.9 Hypertensive chronic kidney disease with stage 1 through stage 4 chronic kidney disease, or unspecified chronic kidney disease; N18.9 Chronic kidney disease, unspecified; E78.5 Hyperlipidemia, unspecified; D72.829 Elevated white blood cell count, unspecified; Z87.891 Personal history of nicotine dependence; Z88.5 Allergy status to narcotic agent; Z79.82 Long term (current) use of aspirin; W01.0XXA Fall on same level from slipping, tripping and stumbling without subsequent striking against object, initial encounter
CPT/HCPCS: 70450; 71010; 72125; 73030; 73060; 73502; 73564; 76937; 80048; 80053; 81001; 85025; 97110; 97116; 97163; 99285; G0378; G8987; G8988; J1644; J7030

== ENCOUNTER 2017-12-19 12:18 | Emergency (ER) | payer MEDICARE ==
[~2017-12-19] VITALS: Ht 175.3 cm; Wt 76.1 kg
[~2017-12-19 12:18] MED LIST changes: -ASPI81 PO; +ASPI81TA23 PO; -CENTTAB9 PO; -CEPH500C3 PO; +CLON0.1T PO; +METO1TAB9 PO; +MULT-6 PO; -MULTLIQ PO; -TOPR50TA PO; -VITA-13 PO; -ZOLP1TAB32 PO; +[UNRECOGNIZED DRUG - CODE] PO
[2017-12-19 12:21] VITALS: BP 167/66; PULSE 62; RESP 16; TEMP 97.8
--- NOTE | 2017-12-19 13:39 | PD ---
HPI Chief Complaint: Fall Time Seen by Provider: 13:02 Travel History International Travel<30 days: No Contact w/Intl Traveler<30days: No Traveled to known affect area: No History of Present Illness HPI Patient is an 87 yo female presenting after a fall. She was reaching to get to her walker and fell backwards. She did not lose consciousness, admits to hitting her head and currently has a headache. She has a history of falls which resulted in a fractured pelvis and clavicle. She denies feeling dizzy or lightheaded before her fall. Denies blurry vision, nausea, vomiting. Denies back pain, neck pain. PFSH Past Medical History Hx Anticoagulant Therapy: Yes (asa 81mg) Arthritis: Yes (osteo) Blood Disorders: No Anxiety: No Depression: No Heart Rhythm Problems: No Cancer: No Cardiovascular Problems: Yes (htn on meds,) High Cholesterol: Yes Chest Pain: No Congestive Heart Failure: No Diminished Hearing: Yes (BILAT HEARING AIDS) Endocrine: No GERD: Yes Genitourinary: No Hypertension: Yes (HYPER T ) Medical other: Yes (broken l clavicle, broken pelvis, psoriasis) Musculoskeletal: Yes (osteoprosis) Neurologic: No Psychiatric: No Reproductive: Yes (HYSTERECTOMY ) Respiratory: No Immunizations Current: No Tetanus Vaccination: < 5 Years Influenza Vaccination: Yes ?: Not Menopausal: Yes Past Surgical History Abdominal Surgery: No Appendectomy: Yes Gynecologic Surgery: Yes (PT DENIES ANY HISTORY OF UTERINE CA ) Hysterectomy: Yes Tonsillectomy: Yes Other Surgery: Yes (HYSTERECTOMY, UTERIOUS ) Social History Alcohol Use: Yes (1 DRINK A DAY.) Tobacco Use: No Substance Use: No Allergies-Medications (Allergen,Severity, Reaction): Coded Allergies: codeine (Unverified Adverse Reaction, Intermediate, NAUSEA, 12/19/17) Reported Meds & Prescriptions Reported Meds & Active Scripts Active Reported Clonidine (Clonidine HCl) 0.1 Mg Tab 0.1 Mg PO BID PRN D3 (Cholecalciferol) 1,000 Unit Cap 1,000 Units PO DAILY Aspirin EC (Aspirin) 81 Mg Tabdr 81 Mg PO DAILY Metoprolol Succinate ER 24 HR (Metoprolol Succinate) 50 Mg Tab 50 Mg PO BID Lovastatin 10 Mg Tab 10 Mg PO HS Review of Systems Except as stated in HPI: all other systems reviewed are Neg Physical Exam Narrative GENERAL: Well-developed, well-nourished,no obvious distress SKIN: Focused skin assessment warm/dry. HEAD: Atraumatic. Normocephalic. EYES: Pupils equal and round. No scleral icterus. No injection or drainage. ENT: No nasal bleeding or discharge. Mucous membranes pink and moist. NECK: Trachea midline. No JVD. CARDIOVASCULAR: Regular rate and rhythm. No murmur appreciated. RESPIRATORY: No accessory muscle use. Clear to auscultation. Breath sounds equal bilaterally. GASTROINTESTINAL: Abdomen soft, non-tender, nondistended. Hepatic and splenic margins not palpable. MUSCULOSKELETAL: No obvious deformities. No clubbing. No cyanosis. No edema. No midline CT or L-spine tenderness, extremities are atraumatic NEUROLOGICAL: Awake and alert. No obvious cranial nerve deficits. Motor grossly within normal limits. Normal speech. PSYCHIATRIC: Appropriate mood and affect; insight and judgment normal. Data Data Last Documented VS Vital Signs Date Time Temp Pulse Resp B/P (MAP) Pulse Ox O2 Delivery O2 Flow Rate FiO2 12/19/17 15:03 68 17 150/86 (107) 96 12/19/17 14:05 Room Air 12/19/17 12:[address] Brain W/O Iv Contrast(Rout) (12/19/17 ) Ct Cerv Spine W/O Contrast (12/19/17 ) Ed Discharge Order (12/19/17 14:50) [facility] Medical Decision Making Medical Screen Exam Complete: Yes Emergency Medical Condition: Yes Differential Diagnosis Head injury neck injury, back injury, extremity injury. Narrative Course Patient 87-year-old female with a history of recurrent falls, she states she was standing up from a table reach to get her walker and missed falling backwards. Her only complaint is of mild headache. CT head and C-spine are negative. She is stable for discharge. Discussed fall prevention and return to ED criteria. Diagnosis Primary Impression: Head injury, closed Additional Impression: Fall Patient Instructions: Fall Prevention (DC), General Instructions Disposition: 01 DISCHARGE HOME Condition: Stable Alon Lopez MD Dec 19, 2017 13:39
--- NOTE | 2017-12-19 14:02 | RADRPT ---
EXAM DATE/TIME: 12/19/2017 13:52 [facility] COMPARISON: CT BRAIN W/O CONTRAST, February 01, 2017, 18:27. INDICATIONS : Trauma. Fall. Hit back of head. RADIATION DOSE: 61.43 CTDIvol (mGy) MEDICAL HISTORY : Gastroesophageal reflux disease. Hypertension. SURGICAL HISTORY : Appendectomy. Hysterectomy. ENCOUNTER: Initial ACUITY: 1 day PAIN SCALE: 7/10 LOCATION: cranial TECHNIQUE: Multiple contiguous axial images were obtained of the head. Using automated exposure control and adjustment of the mA and/or kV according to patient size, radiation dose was kept as low as reasonably achievable to obtain optimal diagnostic quality images. DICOM format image data is av ailable electronically for review and comparison. FINDINGS: CEREBRUM: The ventricles are normal for age. No evidence of midline shift, mass lesion, hemorrha ge or acute infarction. No extra-axial fluid collections are seen. POSTERIOR FOSSA: The cerebellum and brainstem are intact. The 4th ventricle is midline. The cer ebellopontine angle is unremarkable. EXTRACRANIAL: The visualized portion of the orbits is intact. SKULL: The calvaria is intact. Small occipital cephalohematoma No evidence of skull fracture. CONCLUSION: Small cephalhematoma occiput. The cranial contents unremarkable. Lam Carlisle MD FACR on December 19, 2017 at 13:59 Board Certified Radiologist. This report was verified electronically.
[2017-12-19 14:05] VITALS: BP 145/66; PULSE 65; RESP 18; O2SAT 96
--- NOTE | 2017-12-19 14:42 | RADRPT ---
EXAM DATE/TIME: 12/19/2017 13:52 [facility] COMPARISON: CT CERVICAL SPINE W/O CONTRAST, February 01, 2017, 18:27. INDICATIONS : Trauma. Fall. Hit back of head. RADIATION DOSE: 23.81 CTDIvol (mGy) MEDICAL HISTORY : Gastroesophageal reflux disease. Hypertension. SURGICAL HISTORY : Appendectomy. Hysterectomy. ENCOUNTER: Initial ACUITY: 1 day PAIN SCALE: 6/10 LOCATION: neck TECHNIQUE: Volumetric scanning of the cervical spine was performed. Multiplanar reconstructions in the sagittal, coronal and oblique axial planes were performed. Using automated exposure control and adjustment o f the mA and/or kV according to patient size, radiation dose was kept as low as reasonably achievable to obtain optimal diagnostic quality images. DICOM format image data is available electronically f or review and comparison. FINDINGS: Grade I retrolisthesis of C5 in relation to C4 and C6 is noted. Cervical spondylosis is noted at C5-6 and to a lesser extent at C4-5 and C6-7. There is no acute fracture or prevertebral soft tissue swel ling. No spinal canal stenosis is noted. The bony relationship and alignment between C1 and C2 is wel l maintained. Mild bilateral foraminal narrowing is noted at C3-4 and C5-6. CONCLUSION: 1. No acute fracture or prevertebral soft tissue swelling. 2. Grade I retrolisthesis of C5 in relation to C4 and C6. 3. Cervical spondylosis at C5-6 and to a lesser extent at C4-5 and C6-7. 4. Mild bilateral foraminal narrowing at C3-4 and C5-6. 5. No significant spinal stenosis. Alon Marte MD on December 19, 2017 at 14:36 Board Certified Radiologist. This report was verified electronically.
[2017-12-19 15:03] VITALS: BP 150/86
== END 2017-12-19 15:05 | disposition home or self-care (01) ==
LOC: PHED 12:18
DX: S09.90XA Unspecified injury of head, initial encounter (principal); I10 Essential (primary) hypertension; E78.00 Pure hypercholesterolemia, unspecified; M19.90 Unspecified osteoarthritis, unspecified site; K21.9 Gastro-esophageal reflux disease without esophagitis; W19.XXXA Unspecified fall, initial encounter; Z88.5 Allergy status to narcotic agent; Z79.82 Long term (current) use of aspirin; Z79.899 Other long term (current) drug therapy; Z91.81 History of falling
CPT/HCPCS: 70450; 72125; 99283

== ENCOUNTER 2018-08-19 12:20 | Inpatient (IN) ==
--- NOTE | 2018-08-19 13:47 | ED ---
HPI General Chief Complaint: Fall Stated Complaint: fall Time Seen by Provider: 08/19/18 13:09 Source: patient, EMS and RN notes reviewed Mode of arrival: EMS Limitations: no limitations History of Present Illness HPI Narrative: 87-year-old female who presents to the ED for evaluation of fall. Patient apparently had a syncopal episode today. She reports that she was on her way to see her doctor when she all of a sudden looked down and apparently she fell. She states that she cannot stop herself. She has a history of vertigo and a pituitary tumor. She has been here about this being the third time in the past week for evaluation of falls. She apparently has been using a walker but unclear if it is helping. I do not suspect that it is. She has multiple skin tears on her skin. Mainly on the left side of the body. Denies any back pain. She is still having a little headache. Denies any pelvic pain denies take any blood thinners. She does have bruising and swelling noted on the left arm and left leg. She has rib pain as well. She lives in an [place]. Per patient her pain is 6 out of 10. She possibly lost consciousness is not 100% sure. Related Data Home Medications Medication Instructions Recorded Confirmed lisinopril 10 mg PO DAILY 06/16/18 08/19/18 omeprazole 20 mg PO DAILY 06/16/18 08/19/18 Ca carb-D3-mag [id number] 2 tab PO DAILY 08/15/18 08/19/18 [Caltrate + D3 Plus Minerals] cholecalciferol (vitamin D3) 1,000 unit PO DAILY 08/15/18 08/19/18 [Vitamin D3] ferrous sulfate 325 mg PO DAILY 08/15/18 08/19/18 hydrocodone-acetaminophen 1 tab PO Q6H PRN 08/15/18 08/19/18 pravastatin 10 mg PO DAILY 08/15/18 08/19/18 sennosides-docusate sodium 1 tab PO BID 08/19/18 08/19/18 [Senna-S] Allergies Allergy/AdvReac Type Severity Reaction Status Date / Time codeine AdvReac Intermediate NAUSEA Verified 08/19/18 12:32 Review of Systems ROS: all other systems reviewed are negative [facility] Medical History Medical History Vertigo (Acute) History of fracture of left hip (Acute) History of high cholesterol (Acute) Hx of hysterectomy (Acute) Hypertelorism (Acute) Osteoporosis (Acute) Pituitary abnormality (Acute) Surgical History Surgical History Hx of appendectomy (Acute) Social History Social History Substance History: No History of Abuse Second Hand Smoke Exposure: No Smoking Status: Former smoker Tobacco Type: Cigarettes How Often Do You Have a Drink Containing Alcohol: Monthly or less Recent Travel in [facility] within the Last 8 Weeks: No Recent Out of Country Travel within the Last 8 Weeks: No Immunization History Tetanus Immunization: Unsure Exam Narrative Exam Narrative: GENERAL: Well appearing in no distress. SKIN: Focused skin assessment warm/dry. Multiple various skin tears on the left arm and left legs as well as the right leg. Patient does appear to have bruising and swelling on the left side of the face. Also on the left ribs. Able to move all extremities with exception of the left arm for which she does have a little swelling and pain. HEAD: Atraumatic. Normocephalic. EYES: Pupils equal and round. No scleral icterus. No injection or drainage. ENT: No nasal bleeding or discharge. Mucous membranes pink and moist. Tongue is midline. No uvula deviation. NECK: Trachea midline. No JVD. CARDIOVASCULAR: Regular rate and rhythm. No murmur appreciated. RESPIRATORY: No accessory muscle use. Clear to auscultation. Breath sounds equal bilaterally. GASTROINTESTINAL: Abdomen soft, non-tender, nondistended. Hepatic and splenic margins not palpable. MUSCULOSKELETAL: No obvious deformities. No clubbing. No cyanosis. No edema. Full range of motion of all extremities. 2+ pulses bilaterally. NEUROLOGICAL: Awake and alert. No obvious cranial nerve deficits. Motor grossly within normal limits. Normal speech. PSYCHIATRIC: Appropriate mood and affect; insight and judgment normal. Course Initial Documented Vital Signs Temperature 97.8 F 08/19/18 12:25 Last Documented Vital Signs Temperature 97.8 F 08/19/18 12:25 Pulse Rate 80 08/19/18 15:00 Respiratory Rate 18 08/19/18 12:29 Blood Pressure 136/63 08/19/18 12:29 Pulse Oximetry 100 08/19/18 15:00 Medical Decision Making MDM Narrative Medical decision making narrative: 87-year-old female who presents to the ED for evaluation of fall. Patient was properly examined and was found to have signs and symptoms consistent with multiple falls. Patient did sustain what appears to be a syncopal episode today while sitting. Labs and imaging will be ordered. Labs and imaging showed multiple rib fractures, calcifications of the carotids, possible mastoiditis. At this time recommendations admission for further evaluation. Patient cannot stand at all to do orthostatics. She does appear to have cellulitis on her left arm as well as her left leg. Case discussed with Dr. Olivarez my attending who agrees with admission plan. Case discussed with Dr. Looney who agrees admission to her service. Medical Screen Exam Complete: Yes Emergency Medical Condition: Yes Differential Diagnosis Differential Diagnosis: Chest pain versus ACS versus syncope versus falls versus unstable gait versus pituitary tumor versus ICH versus fractures Medical Records Medical records reviewed: Yes I reviewed the patient's medical records. Lab Data Lab results reviewed: Yes I reviewed the patient's lab results. Lab results narrative: trop negative Result diagrams: 08/19/18 14:08 08/19/18 14:08 Lab Results 08/19/18 08/19/18 08/19/18 Range/Units 14:08 14:08 14:08 WBC 11.9 H (4.0-11.0) th/mm3 RBC 3.69 L (4.00-5.30) mil/mm3 Hgb 11.6 (11.6-15.3) gm/dL POC Hgb (Calc) Cancelled Hct 34.6 L (35.0-46.0) % POC Hct Cancelled MCV 93.7 (80.0-100.0) fL MCH 31.3 (27.0-34.0) pg MCHC 33.4 (32.0-36.0) % RDW 14.2 (11.6-17.2) % Plt Count 306 (150-450) th/mm3 MPV 8.7 (7.0-11.0) fL Neut % (Auto) 82.8 H (16.0-70.0) % Lymph % (Auto) 6.6 L (9.0-44.0) % Bacon % (Auto) 9.5 H (0.0-8.0) % Eos % (Auto) 0.6 (0.0-4.0) % Baso % (Auto) 0.5 (0.0-2.0) % Neut # (Auto) 9.8 H (1.8-7.7) th/mm3 Lymph # (Auto) 0.8 L (1.0-4.8) th/mm3 Bacon # (Auto) 1.1 H (0.0-0.9) th/mm3 Eos # (Auto) 0.1 (0.0-0.4) th/mm3 Baso # (Auto) 0.1 (0.0-0.2) th/mm3 WBC Differential . Differential Comment Auto diff final PT 10.5 (9.8-11.6) sec INR 1.0 Ratio APTT 27.6 (24.3-30.1) sec POC Sodium Cancelled Sodium 141 (136-145) meq/L POC Potassium Cancelled Potassium 4.4 (3.5-5.1) meq/L POC Chloride Cancelled Chloride 104 (98-107) meq/L Carbon Dioxide 23.3 (21.0-32.0) meq/L Anion Gap 14 (5-15) meq/L POC BUN Cancelled BUN 23 H (7-18) mg/dL Creatinine 1.01 H (0.50-1.00) mg/dL POC Creatinine Cancelled Estimated GFR 52 L (>89) mL/min POC Glucose Cancelled Random Glucose 101 (74-106) mg/dL Calcium 8.7 (8.5-10.1) mg/dL Troponin I Less than 0.02 L (0.02-0.05) ng/mL Imaging Data Attestation: I personally reviewed and interpreted this imaging study as follows : Radiologist's impression: Chest X-Ray 08/19/18 13:25 CONCLUSION: 1. Left basilar density likely atelectasis. 2. Left-sided rib fractures Forearm X-Ray 08/19/18 13:25 CONCLUSION: No acute abnormality. Humerus X-Ray 08/19/18 13:25 CONCLUSION: Old left clavicular trauma. No acute abnormality. Pelvis X-Ray 08/19/18 13:25 CONCLUSION: No acute abnormality. Tibia/Fibula X-Ray 08/19/18 13:25 CONCLUSION: Osteopenia. No acute abnormality. Abdomen/Pelvis CT 08/19/18 13:26 CONCLUSION: 1. One of the known left rib fractures is again visualized. Please see chest CT report for further details. 2. No evidence of acute visceral injury. 3. Benign-appearing cystic structures in the liver. 4. Mild to moderate diverticulosis. Cervical Spine CT 08/19/18 13:26 CONCLUSION: 1. No fracture or dislocation. 2. Degenerative changes as detailed above with patent central canal throughout. 3. Significant carotid artery atherosclerotic calcifications. Chest CT 08/19/18 13:26 CONCLUSION: 1. Multiple acute left-sided rib fractures. 2. Questionable distal left clavicular fracture. 3. No pneumothorax. 4. Significant coronary artery atherosclerotic calcifications. Head CT 08/19/18 13:26 CONCLUSION: 1. No acute hemorrhage or mass effect. 2. Soft tissue swelling over the left parietal bone with no evidence of fracture. 3. Opacification of the left mastoid air cells consistent with mastoiditis. . ECG Data Attestation: I personally reviewed and interpreted this ECG as follows: Interpretation: EKG shows sinus rhythm with no sign of acute ischemia or arrhythmia read by me and attending. Discharge Plan Discharge Disposition Patient Disposition: 30 Still Patient Discharge Details Diagnosis: Syncope, Closed rib fracture, Cellulitis Physicians Team ED Provider: Piter Olivarez ED Midlevel Provider: Franklin Landaverde Primary Care Provider: Augie Velazquez Rxs /Orders / Referrals /Forms Prescriptions: No Action lisinopril 10 mg PO DAILY RF: 0 omeprazole 20 mg PO DAILY RF: 0 sennosides-docusate sodium [Senna-S] 8.6-50 mg Tablet 1 tab PO BID RF: 0 hydrocodone-acetaminophen 5-325 mg Tablet 1 tab PO Q6H PRN (Reason: Pain) RF: 0 pravastatin 10 mg Tablet 10 mg PO DAILY RF: 0 ferrous sulfate 325 mg (65 mg iron) Tablet,Delayed Release (Dr/Ec) 325 mg PO DAILY RF: 0 cholecalciferol (vitamin D3) [Vitamin D3] 1,000 unit Tablet 1,000 unit PO DAILY RF: 0 Ca carb-D3-mag [id number] [Caltrate + D3 Plus Minerals] 300 mg-800 unit - 25 mg-0.5 mg Tablet 2 tab PO DAILY RF: 0 Status ED Status: With Doctor
--- NOTE | 2018-08-19 14:14 | XR ---
EXAM DATE: 08/19/2018 1:25 PM EDT AGE/SEX: 87 years / Female INDICATIONS: Pelvic pain after fall. CLINICAL DATA: This is the patient's initial encounter. Patient reports that signs and symptoms have been present for 1 day and indicates a pain score of 10/10. MEDICAL/SURGICAL HISTORY: None. . ORIF left femur. COMPARISON: [facility] – [place], HIP LEFT 2V, 06/16/2018. . FINDINGS: 3 views of the pelvis reveal a long intramedullary heriberto and femoral neck screw on the left. This trave rses a proximal femoral metadiaphyseal fracture. Good alignment is noted. Heterotopic bone formation is noted about the fracture site. No new fracture observed. Diffuse osteopenia noted. Atherosclerotic calcifications. Prior trauma involving the pubic rami on the left. CONCLUSION: No acute abnormality. Electronically signed by: Michael Borden MD 08/19/2018 2:12 PM EDT
--- NOTE | 2018-08-19 14:18 | XR ---
EXAM DATE: 08/19/2018 1:25 PM EDT AGE/SEX: 87 years / Female INDICATIONS: Left humerus pain and abrasions from fall. CLINICAL DATA: This is the patient's initial encounter. Patient reports that signs and symptoms have been present for 1 day and indicates a pain score of 10/10. MEDICAL/SURGICAL HISTORY: None. None. [place] [facility] [place] (>2VWS[place] 02/01/2017. . FINDINGS: Bony structures are intact and in normal alignment. Osseous density is reduced. Old trauma involving the left clavicle. Soft tissues are unremarkable. No radiopaque foreign bodies seen. CONCLUSION: Old left clavicular trauma. No acute abnormality. Electronically signed by: Michael Borden MD 08/19/2018 2:17 PM EDT
--- NOTE | 2018-08-19 14:18 | XR ---
EXAM DATE: 08/19/2018 1:25 PM EDT AGE/SEX: 87 years / Female INDICATIONS: Left tibia pain and abrasions from fall. CLINICAL DATA: This is the patient's initial encounter. Patient reports that signs and symptoms have been present for 1 day and indicates a pain score of 10/10. MEDICAL/SURGICAL HISTORY: None. None. COMPARISON: [facility] [place] COMPLETE (4VWS), 02/01/2017. . FINDINGS: Bony structures are intact and in normal alignment. Osseous density is reduced. Soft tissues are unr emarkable. No radiopaque foreign bodies seen. CONCLUSION: Osteopenia. No acute abnormality. Electronically signed by: Michael Borden MD 08/19/2018 2:16 PM EDT
--- NOTE | 2018-08-19 14:19 | XR ---
EXAM DATE: 08/19/2018 1:25 PM EDT AGE/SEX: 87 years / Female INDICATIONS: Left forearm pain and abrasions from fall. CLINICAL DATA: This is the patient's initial encounter. Patient reports that signs and symptoms have been present for 1 day and indicates a pain score of 10/10. MEDICAL/SURGICAL HISTORY: None. None. COMPARISON: [facility], HUMERUS LEFT MIN 2V, 08/19/2018. . FINDINGS: Bony structures are intact and in normal alignment. Osseous density is reduced. Soft tissues are unre markable. No radiopaque foreign bodies seen. CONCLUSION: No acute abnormality. Electronically signed by: Michael Borden MD 08/19/2018 2:18 PM EDT
--- NOTE | 2018-08-19 14:26 | XR ---
EXAM DATE: 08/19/2018 1:25 PM EDT AGE/SEX: 87 years / Female INDICATIONS: Chest pain after fall. CLINICAL DATA: This is the patient's initial encounter. Patient reports that signs and symptoms have been present for 1 day and indicates a pain score of 10/10. MEDICAL/SURGICAL HISTORY: None. None. COMPARISON: [facility] [place]ST SING[place] AP, 03/06/2018. . FINDINGS: Patient rotated to the left A single AP view of the chest demonstrates left basilar densities. Hyperi nflation. Heart normal in size. The cardiomediastinal contours are unremarkable. There are several l eft-sided rib fractures CONCLUSION: 1. Left basilar density likely atelectasis. 2. Left-sided rib fractures Electronically signed by: Kike Naranjo MD 08/19/2018 2:24 PM EDT
[2018-08-19 14:38] LABS: Baso # (Auto) 0.1 th/mm3 (0.0-0.2); Baso % (Auto) 0.5 % (0.0-2.0); Eos # (Auto) 0.1 th/mm3 (0.0-0.4); Eos % (Auto) 0.6 % (0.0-4.0); Hematocrit 34.6 % (35.0-46.0); Hemoglobin 11.6 gm/dL (11.6-15.3); Lymph # (Auto) 0.8 th/mm3 (1.0-4.8); Lymph % (Auto) 6.6 % (9.0-44.0); Mean Corpuscular HGB Conc 33.4 % (32.0-36.0); Mean Corpuscular Hemoglobin 31.3 pg (27.0-34.0); Mean Corpuscular Volume 93.7 fL (80.0-100.0); Mean Platelet Volume 8.7 fL (7.0-11.0); Mono # (Auto) 1.1 th/mm3 (0.0-0.9); Mono % (Auto) 9.5 % (0.0-8.0); Neut # (Auto) 9.8 th/mm3 (1.8-7.7); Neut % (Auto) 82.8 % (16.0-70.0); Platelet Count 306 th/mm3 (150-450); Red Blood Count 3.69 mil/mm3 (4.00-5.30); Red Cell Distribution Width 14.2 % (11.6-17.2); White Blood Count 11.9 th/mm3 (4.0-11.0)
[2018-08-19 15:24] LABS: Activated Partial Thrombo Time 27.6 sec (24.3-30.1); Prothrombin Time 10.5 sec (9.8-11.6)
[2018-08-19 15:51] LABS: Anion Gap 14 meq/L (5-15); Blood Urea Nitrogen 23 mg/dL (7-18); Calcium 8.7 mg/dL (8.5-10.1); Carbon Dioxide 23.3 meq/L (21.0-32.0); Chloride 104 meq/L (98-107); Glomerular Filtration Rate 52 mL/min (>89); Glucose,Random 101 mg/dL (74-106); Potassium 4.4 meq/L (3.5-5.1); Sodium 141 meq/L (136-145)
--- NOTE | 2018-08-19 16:31 | CT ---
EXAM DATE: 08/19/2018 3:53 PM EDT AGE/SEX: 87 years / Female INDICATIONS: Falls confusion CLINICAL DATA: This is the patient's initial encounter. Patient reports that signs and symptoms have been present for 1 day and indicates a pain score of 5/10. MEDICAL/SURGICAL HISTORY: . Pituitary abnormality None. RADIATION DOSE: 58.69 CTDI (mGy) COMPARISON: No prior exams available for comparison. TECHNIQUE: CT of the head without contrast. Using automated exposure control and adjustment of the mA and/or kV according to patient size, radiation dose was kept as low as reasonably achievable to ob tain optimal diagnostic quality images. DICOM format image data is available electronically for revi ew and comparison. FINDINGS: Cerebrum: The ventricles are normal for age with moderate atrophic change with sulcal and ventricula r prominence. No evidence of midline shift, mass lesion, hemorrhage or acute infarction. No extraaxi al fluid collections are seen. Posterior Fossa: The cerebellum and brainstem are intact. The 4th ventricle is midline. The cerebe llopontine angle is unremarkable. Extracranial: The visualized portion of the orbits is intact. Is opacification of the left mastoid a ir cells. Skull: The calvaria is intact. No evidence of skull fracture. There is soft tissue swelling over th e left parietal bone. CONCLUSION: 1. No acute hemorrhage or mass effect. 2. Soft tissue swelling over the left parietal bone with no evidence of fracture. 3. Opacification of the left mastoid air cells consistent with mastoiditis. . Electronically signed by: Abundio De MD 08/19/2018 4:30 PM EDT
--- NOTE | 2018-08-19 16:55 | CT ---
EXAM DATE: 08/19/2018 3:53 PM EDT AGE/SEX: 87 years / Female INDICATIONS: Falls left side pain CLINICAL DATA: This is the patient's initial encounter. Patient reports that signs and symptoms have been present for 1 day and indicates a pain score of 5/10. MEDICAL/SURGICAL HISTORY: . Pituitary abnormality Appendectomy. Hysterectomy. RADIATION DOSE: 12.56 CTDI (mGy) ; Combined studies COMPARISON: No prior exams available for comparison. TECHNIQUE: Multiple contiguous axial images were obtained through the chest during bolus infusion of 80 ml Omnipaque 350 (iohexol) nonionic water-soluble contrast as a cumulative dose for multiple exa ms. Images were obtained in suspended respiration using multiple row detector helical technique. U sing automated exposure control and adjustment of the mA and/or kV according to patient size, radiati on dose was kept as low as reasonably achievable to obtain optimal diagnostic quality images. DICOM format image data is available electronically for review and comparison. FINDINGS: Lungs: Deep dependent atelectasis involving both lung bases. No infiltrate or effusion. 4 mm soft ti ssue nodule within the inferior aspects of the lateral segment of the right middle lobe.. Mediastinum: No evidence of mediastinal or hilar adenopathy/mass. The heart is normal in size. Coron yogi artery atherosclerotic calcifications are noted. The aorta and pulmonary arteries are normal in c aliber. . Pleurae: No evidence of focal thickening or pleural effusion. Axillae: Unremarkable. Bony Structures: Multiple acute left-sided rib fractures. Questionable distal left clavicular fractu re.. Miscellaneous: See the CT the abdomen and pelvis reported separately.. CONCLUSION: 1. Multiple acute left-sided rib fractures. 2. Questionable distal left clavicular fracture. 3. No pneumothorax. 4. Significant coronary artery atherosclerotic calcifications. Electronically signed by: Michael Borden MD 08/19/2018 4:53 PM EDT
--- NOTE | 2018-08-19 17:01 | CT ---
EXAM DATE: 08/19/2018 3:53 PM EDT AGE/SEX: 87 years / Female INDICATIONS: Post fall. Patient complains of pain walking and left-sided chest/upper abdomen pain. CLINICAL DATA: This is the patient's initial encounter. Patient reports that signs and symptoms have been present for 1 day and indicates a pain score of 5/10. MEDICAL/SURGICAL HISTORY: None. Appendectomy. Hysterectomy. Pituitary abnormality ORAL CONTRAST: Partial prescribed oral contrast ingested. RADIATION DOSE: 12.56 CTDI (mGy) ; Combined studies COMPARISON: No prior exams available for comparison. TECHNIQUE: Multiple contiguous axial images were obtained through the abdomen and pelvis following b olus infusion of 89 ml Omnipaque 350 (iohexol) nonionic water-soluble contrast as a cumulative dose for multiple exams. Partial prescribed oral contrast ingested. Using automated exposure control and adjustment of the mA and/or kV according to patient size, radiation dose was kept as low as reasonab ly achievable to obtain optimal diagnostic quality images. DICOM format image data is available elec tronically for review and comparison. FINDINGS: Lower Lungs: There is atelectasis or scarring in the lung bases left greater than right. Liver: The liver has a homogeneous density with a 2 cm cyst in the left lobe. There is a smaller cyst ic structure measuring approximately 6 mm. There are additional small cystic structures in the right lobe as well. The gallbladder is unremarkable. There is no dilation of the biliary tree. Spleen: Homogeneous density without enlargement. Pancreas: Unremarkable without mass or calcification. Kidneys: Normal in size and shape. No evidence of mass or hydronephrosis. Adrenal Glands: Unremarkable. Aorta: The aorta and proximal iliac vessels are grossly unremarkable without aneurysmal dilation. Bowel/Mesentery: Scattered diverticuli are noted with no wall thickening or inflammatory change. The re is no free air or fluid. Abdominal Wall: Intact. Retroperitoneum: No evidence of adenopathy in the retrocrural, para-aortic, or deep pelvic regions. Bladder: Contours are smooth. Reproductive Organs: No abnormal masses or calcifications seen. Inguinal: The inguinal region is unremarkable without evidence of adenopathy. Bony Structures: Osteopenia, degenerative change and scoliosis are noted. There are postoperative ch anges in the left hip. There is no fracture deformity of the left inferior pubic rami. Scoliosis and degenerative changes are noted in the lumbar spine. One of the left rib fractures is visualized. CONCLUSION: 1. One of the known left rib fractures is again visualized. Please see chest CT report for further d etails. 2. No evidence of acute visceral injury. 3. Benign-appearing cystic structures in the liver. 4. Mild to moderate diverticulosis. Electronically signed by: Abundio De MD 08/19/2018 5:00 PM EDT
--- NOTE | 2018-08-19 17:01 | CT ---
EXAM DATE: 08/19/2018 3:53 PM EDT AGE/SEX: 87 years / Female INDICATIONS: Falls left side pain CLINICAL DATA: This is the patient's initial encounter. Patient reports that signs and symptoms have been present for 1 day and indicates a pain score of 5/10. MEDICAL/SURGICAL HISTORY: . Pituitary abnormality Appendectomy. Hysterectomy. RADIATION DOSE: 16.04 CTDI (mGy) COMPARISON: [facility] – [place], [place] CERVICAL SPINE W/O CONTRAST, 03/06/2018. . TECHNIQUE: Contiguous axial images were obtained using helical multirow detector technique. The vol umetric data was post-processed with multiplanar reconstruction in oblique axial, sagittal, and coron al planes. Using automated exposure control and adjustment of the mA and/or kV according to patient s ize, radiation dose was kept as low as reasonably achievable to obtain optimal diagnostic quality kalen ges. DICOM format image data is available electronically for review and comparison. FINDINGS: Vertebrae: Normal vertebral body height. Alignment: A minimal grade 1 anterolisthesis of C4 on C5 which is stable from the prior study. No stark bluxation. Pronounced carotid artery atherosclerotic calcifications. C2-3: The bony spinal canal is normal in size. No evidence of disc bulge or herniation. The neural foramina are bilaterally patent. C3-4: The bony spinal canal is normal in size. No evidence of disc bulge or herniation. The neural foramina are bilaterally patent. C4-5: The bony spinal canal is normal in size. No evidence of disc bulge or herniation. The neural foramina are bilaterally patent. C5-6: The bony spinal canal is normal in size. No evidence of disc bulge or herniation. Bony uncove rtebral hypertrophy generates mild narrowing of the neural foramina bilaterally.. C6-7: The bony spinal canal is normal in size. No evidence of disc bulge or herniation. The neural foramina are bilaterally patent. C7-T1: The bony spinal canal is normal in size. No evidence of disc bulge or herniation. The neura l foramina are bilaterally patent. CONCLUSION: 1. No fracture or dislocation. 2. Degenerative changes as detailed above with patent central canal throughout. 3. Significant carotid artery atherosclerotic calcifications. Electronically signed by: Michael Borden MD 08/19/2018 5:00 PM EDT
[2018-08-19] MEDS ORDERED: Vancomycin Consult Pharmacy OTHER PRN (17:30)
--- NOTE | 2018-08-19 17:58 | P.HP ---
History of Present Illness Primary Care Physician: Augie Velazquez MD Chief Complaint: fall History of Present Illness: 87-year-old female who presents to the ED for evaluation of fall. Patient apparently had a syncopal episode today. She reports that she was on her way to see her doctor when she all of a sudden looked down and apparently she fell. She states that she cannot stop herself. She has a history of vertigo and a pituitary tumor. She has been here about this being the third time in the past week for evaluation of falls. She apparently has been using a walker but unclear if it is helping. I do not suspect that it is. She has multiple skin tears on her skin. Mainly on the left side of the body. Denies any back pain. She is still having a little headache. Denies any pelvic pain denies take any blood thinners. She does have bruising and swelling noted on the left arm and left leg. She has rib pain as well. She lives in an [facility]. Per patient her pain is 6 out of 10. She possibly lost consciousness is not 100% sure. Review of Systems All other systems reviewed negative except as stated in HPI PMFSH - History History Provided By: Patient, Turkey Picker / EMT - Medical History Medical History: Medical History (Last Reviewed 08/19/18 @ 17:37 by Soila Looney MD) Vertigo History of fracture of left hip History of high cholesterol Hx of hysterectomy Hypertelorism Osteoporosis Pituitary abnormality - Surgical History Surgical History: Surgical History (Last Reviewed 08/19/18 @ 17:37 by Soila Looney MD) Hx of appendectomy - Family History Family History: Family History (Last Updated 08/19/18 @ 19:42 by Soila Looney MD) Brother Stroke Sister COPD (chronic obstructive pulmonary disease) - Tobacco History Second Hand Smoke Exposure: No Smoking Status: Former smoker Tobacco Type: Cigarettes - Alcohol History How Often Do You Have a Drink Containing Alcohol: Monthly or less - Substance Use History Substance History: No History of Abuse - Travel History Recent Travel in the [place] Within the Last 8 Weeks: No Recent Travel Out of the Country Within the Last 8 Weeks: No - Immunization History Tetanus Immunization: Unsure Medications and Allergies Active Medications: Active Medications Cefepime HCl 1,000 mg/ Sodium (Chloride) 100 mls @ 200 mls/hr IV.SIG ONCE ONE Stop: 08/19/18 17:47 Vancomycin HCl 1,000 mg/ (Sodium Chloride) 250 mls @ 250 mls/hr IV.SIG Q12H [facility] Pharmacy Profile Note (Vancomycin Consult Pharmacy) 1 each OTHER UNSCH PRN PRN Reason: Pharmacy to dose Allergies Allergy/AdvReac Type Severity Reaction Status Date / Time codeine AdvReac Intermediate NAUSEA Verified 08/19/18 12:32 Home Medications Medication Instructions Recorded Confirmed Type lisinopril 10 mg PO DAILY 06/16/18 08/19/18 History omeprazole 20 mg PO DAILY 06/16/18 08/19/18 History Ca carb-D3-mag ve-deg-jiaz-Zn 2 tab PO DAILY 08/15/18 08/19/18 History [Caltrate + D3 Plus Minerals] cholecalciferol (vitamin D3) 1,000 unit PO DAILY 08/15/18 08/19/18 History [Vitamin D3] ferrous sulfate 325 mg PO DAILY 08/15/18 08/19/18 History hydrocodone-acetaminophen 1 tab PO Q6H PRN 08/15/18 08/19/18 History pravastatin 10 mg PO DAILY 08/15/18 08/19/18 History sennosides-docusate sodium 1 tab PO BID 08/19/18 08/19/18 History [Senna-S] Exam Vital signs: Vital Signs 08/19/18 12:25 08/19/18 12:29 08/19/18 14:30 Temperature 97.8 F Pulse Rate 77 84 Respiratory Rate 18 Blood Pressure 136/63 Pulse Oximetry 99 100 08/19/18 14:34 08/19/18 15:00 Temperature Pulse Rate 78 80 Respiratory Rate Blood Pressure Pulse Oximetry 100 100 Intake & Output 08/18/18 08/19/18 08/19/18 18:59 06:59 18:59 Weight 72.575 kg Narrative: GENERAL: Elderly female, frail, appears in not acute distress. SKIN: Warm and dry. Multiple various skin tears on the left arm and left legs as well as the right leg. Patient does appear to have bruising and swelling on the left side of the face. Also on the left ribs. Able to move all extremities with exception of the left arm for which she does have a little swelling and pain. HEAD: Atraumatic. Normocephalic. EYES: Pupils equal and round. No scleral icterus. No injection or drainage. ENT: No nasal bleeding or discharge. Mucous membranes pink and moist. NECK: Trachea midline. No JVD. CARDIOVASCULAR: Regular rate and rhythm. RESPIRATORY: No accessory muscle use. Clear to auscultation. Breath sounds equal bilaterally. GASTROINTESTINAL: Abdomen soft, non-tender, nondistended. Hepatic and splenic margins not palpable. MUSCULOSKELETAL: Extremities without clubbing, cyanosis, or edema. No obvious deformities. NEUROLOGICAL: Awake and alert. No obvious cranial nerve deficits. Motor grossly within normal limits. Five out of 5 muscle strength in the arms and legs. Normal speech. PSYCHIATRIC: Appropriate mood and affect; insight and judgment normal. Results - Labs CBC & Chem 7: 08/19/18 14:08 08/19/18 14:08 Labs: Laboratory Results - last 24 hr 08/19/18 08/19/18 08/19/18 14:08 14:08 14:08 WBC 11.9 H RBC 3.69 L Hgb 11.6 POC Hgb (Calc) Cancelled Hct 34.6 L POC Hct Cancelled MCV 93.7 MCH 31.3 MCHC 33.4 RDW 14.2 Plt Count 306 MPV 8.7 Neut % (Auto) 82.8 H Lymph % (Auto) 6.6 L [place] % (Auto) 9.5 H Eos % (Auto) 0.6 Baso % (Auto) 0.5 Neut # (Auto) 9.8 H Lymph # (Auto) 0.8 L [place] # (Auto) 1.1 H Eos # (Auto) 0.1 Baso # (Auto) 0.1 WBC Differential . Differential Comment Auto diff final PT 10.5 INR 1.0 APTT 27.6 POC Sodium Cancelled Sodium 141 POC Potassium Cancelled Potassium 4.4 POC Chloride Cancelled Chloride 104 Carbon Dioxide 23.3 Anion Gap 14 POC BUN Cancelled BUN 23 H Creatinine 1.01 H POC Creatinine Cancelled Estimated GFR 52 L POC Glucose Cancelled Random Glucose 101 Calcium 8.7 Troponin I Less than 0.02 L - Imaging Impressions Chest X-Ray 08/19/18 13:25 CONCLUSION: 1. Left basilar density likely atelectasis. 2. Left-sided rib fractures Forearm X-Ray 08/19/18 13:25 CONCLUSION: No acute abnormality. Humerus X-Ray 08/19/18 13:25 CONCLUSION: Old left clavicular trauma. No acute abnormality. Pelvis X-Ray 08/19/18 13:25 CONCLUSION: No acute abnormality. Tibia/Fibula X-Ray 08/19/18 13:25 CONCLUSION: Osteopenia. No acute abnormality. Abdomen/Pelvis CT 08/19/18 13:26 CONCLUSION: 1. One of the known left rib fractures is again visualized. Please see chest CT report for further details. 2. No evidence of acute visceral injury. 3. Benign-appearing cystic structures in the liver. 4. Mild to moderate diverticulosis. Cervical Spine CT 08/19/18 13:26 CONCLUSION: 1. No fracture or dislocation. 2. Degenerative changes as detailed above with patent central canal throughout. 3. Significant carotid artery atherosclerotic calcifications. Chest CT 08/19/18 13:26 CONCLUSION: 1. Multiple acute left-sided rib fractures. 2. Questionable distal left clavicular fracture. 3. No pneumothorax. 4. Significant coronary artery atherosclerotic calcifications. Head CT 08/19/18 13:26 CONCLUSION: 1. No acute hemorrhage or mass effect. 2. Soft tissue swelling over the left parietal bone with no evidence of fracture. 3. Opacification of the left mastoid air cells consistent with mastoiditis. . Caprini VTE Risk Assessment Caprini VTE Risk Assessment: Moderate/High Risk (score >= 2) Caprini Risk Assessment Model: Point Value = 1 Point Value = 2 Point Value = 3 Point Value = 5 Age 41-60 Minor surgery BMI > 25 kg/m2 Swollen legs Varicose veins or History of unexplained or recurrent spontaneous Oral contraceptives or hormone replacement Sepsis (< 1 month) Serious lung disease, including pneumonia (< 1 month) Abnormal pulmonary function Acute myocardial infarction Congestive heart failure (< 1 month) History of inflammatory bowel disease Medical patient at bed rest Age 61-74 Arthroscopic surgery Major open surgery (> 45 min) Laparoscopic surgery (> 45 min) Malignancy Confined to bed (> 72 hours) Immobilizing plaster cast Central venous access Age >= 75 History of VTE Family history of VTE Factor V Leiden Prothrombin [id number] Lupus anticoagulant Anticardiolipin antibodies Elevated serum homocysteine Heparin-induced thrombocytopenia Other congenital or acquired thrombophilia Stroke (< 1 month) Elective arthroplasty Hip, pelvis, or leg fracture Acute spinal cord injury (< 1 month) Prophylaxis Regimen: Total Risk Factor Score Risk Level Prophylaxis Regimen 0-1 Low Early ambulation 2 Moderate Order ONE of the following: *Sequential Compression Device (SCD) *Heparin 5000 units SQ BID 3-4 Higher Order ONE of the following medications: *Heparin 5000 units SQ TID *Enoxaparin/Lovenox 40 mg SQ daily (WT < 150 kg, CrCl > 30 mL/min) *Enoxaparin/Lovenox 30 mg SQ daily (WT < 150 kg, CrCl > 10-29 mL/min) *Enoxaparin/Lovenox 30 mg SQ BID (WT < 150 kg, CrCl > 30 mL/min) AND/OR *Sequential Compression Device (SCD) 5 or more Highest Order ONE of the following medications: *Heparin 5000 units SQ TID (Preferred with Epidurals) *Enoxaparin/Lovenox 40 mg SQ daily (WT < 150 kg, CrCl > 30 mL/min) *Enoxaparin/Lovenox 30 mg SQ daily (WT < 150 kg, CrCl > 10-29 mL/min) *Enoxaparin/Lovenox 30 mg SQ BID (WT < 150 kg, CrCl > 30 mL/min) AND *Sequential Compression Device (SCD) Assessment and Plan - Plan 87-year-old female who presents to the ED for evaluation of fall. Patient was properly examined and was found to have signs and symptoms consistent with multiple falls. Patient did sustain what appears to be a syncopal episode today while sitting. No fractures per imaging. Cellulitis left arm and left leg Status post fall Syncope Hyperlipidemia Hypertension Hoarseness. do swallow eval. Advice to follow up as OP with ENT and also to control GERD. Monitor on telemetry. Neuro checks, check 2d echo and carotid US. Monitor VS closely. Start IV abx vancomycin, wound cx sent in ED, follow results. No signs of sepsis. Wound nurse Restart home meds as appropriate DVT ppx scd/teds/lovenox Discussed Condition With: pt, nurse, ED MAKAYLA Landaverde
[2018-08-19] MEDS ORDERED: Vancomycin Inj 1,000 MG in Sodium Chlor 0.9% Inj 250 ML IV.SIG ONE (18:30)
--- NOTE | 2018-08-19 20:07 | US ---
EXAM DATE: 08/19/2018 12:00 AM EDT AGE/SEX: 87 years / Female INDICATIONS: Syncope. CLINICAL DATA: This is the patient's initial encounter. Patient reports that signs and symptoms have been present for 2 days and indicates a pain score of 0/10. MEDICAL/SURGICAL HISTORY: Vertigo. Hypercholesterolemia. Osteoporosis. Left hip fracture. H ypertelorism. Appendectomy. Hysterectomy. COMPARISON: No prior exams available for comparison. VELOCITY PARAMETERS: ICA/CCA Ratio: Right 0.88 , Left 1.06 ICA: Right 104 cm/sec, Left 113 cm/sec CCA: Right 118 cm/sec, Left 107 cm/sec ECA: Right 148 cm/sec, Left 154 cm/sec Vertebral: Right 50 cm/sec antegrade, Left 79 cm/sec antegrade FINDINGS: Right Carotid: Mild arteriosclerotic plaque is visualized.The waveforms are within normal limits. Left Carotid: Mild arteriosclerotic plaque is visualized. The waveforms are within normal limits. Other: None. CONCLUSION: 1. Right Internal Carotid Artery: Findings indicate <50% stenosis. 2. Left Internal Carotid Artery: Findings indicate <50% stenosis. Electronically signed by: Johan Arrington MD 08/19/2018 8:06 PM EDT
--- NOTE | 2018-08-19 20:16 | ECG ---
Date Performed: 08/19/2018 Time Performed: 14:59:55 PTAGE: 87 years EKG: Sinus rhythm WITH OCCASIONAL VENTRICULAR PREMATURE COMPLEXES BORDERLINE ECG PREVIOUS TRACING : 03/06/2018 21.45 No significant change from previous tracing noted. DOCTOR: Brock Ashley Interpretating Date/Time 08/19/2018 20:16:24
[2018-08-19] MEDS: Metoprolol Tartrate 25 MG Tablet PO SCH (22:27)
--- NOTE | 2018-08-20 08:53 | P.PN ---
Subjective Interval history: Follow-up visit status post fall, syncopal episode, HTN, HLD, hoarseness in her voice. Patient seen and examined today. Hard of hearing. Complains of hoarseness in her voice. Complaints of having multiple falls. Patient is very repetitive. Discussed with patient need for an EGD and possibly colonoscopy because of her complaints. States that he wanted Dr. Velazquez to tell her if she really needs to go for the procedure. However, she also repetitively says that she does not want to go and repetitively goes back to her voice is hoarse. GI has spoken with the patient. She continues to be unable to decide whether to get an EGD/colonoscopy. If the patient does not agree for the procedure we will just defer to procedure for an outpatient. Will discuss with GI. Otherwise, denies pain and discomfort. Denies SOB/ dyspnea. Denies chest pain , palpitations, headaches. Denies fevers, chills, n/v/d. Denies dysuria. Physical Exam Vital signs: Vital Signs 08/19/18 12:25 08/19/18 12:29 08/19/18 14:30 Temperature 97.8 F Pulse Rate 77 84 Respiratory Rate 18 Blood Pressure 136/63 Pulse Oximetry 99 100 08/19/18 14:34 08/19/18 15:00 08/19/18 15:25 Temperature Pulse Rate 78 80 82 Respiratory Rate Blood Pressure 149/65 H Pulse Oximetry 100 100 100 08/19/18 16:00 08/19/18 17:00 08/19/18 17:42 Temperature Pulse Rate 80 84 86 Respiratory Rate Blood Pressure 153/68 H Pulse Oximetry 98 97 99 08/19/18 21:00 08/19/18 23:27 08/20/18 00:00 Temperature 97.7 F Pulse Rate 82 78 Respiratory Rate 20 Blood Pressure 136/64 139/72 Pulse Oximetry 99 98 96 08/20/18 04:00 Temperature 97.8 F Pulse Rate 81 Respiratory Rate 20 Blood Pressure 132/67 Pulse Oximetry 98 Intake & Output 08/19/18 08/20/18 08/20/18 18:59 06:59 18:59 Intake Total 100 / 100 250 / 250 Output Total 400 / 400 Balance 100 / 100 -150 / -150 Weight 72.575 kg 77.7 kg Intake: IV 100 / 100 250 / 250 Maxipime Inj 1,000 MG In NS Inj 100 / 100 100 ML @ 200 mls/hr IV.SIG ONCE ONE Rx#:[id number] Vancomycin Inj 1,000 MG In NS 250 / 250 Inj 250 ML @ 250 mls/hr IV.SIG ONCE ONE Rx#:[id number] Oral 0 / 0 Output: Urine 400 / 400 Other: Weight On Admission 77.7 kg Narrative: GENERAL: This is a well-nourished, elderly female, in no apparent distress. SKIN: Warm and dry.Multiple various skin tears on the left arm and left legs as well as the right leg. Multiple ecchymosis in various healing stages also noted. HEENT: Normocephalic. Pupils equal round and reactive. Nose without bleeding. Airway patent. NECK: Trachea midline. CARDIOVASCULAR: Regular rate and rhythm without murmurs, gallops, or rubs. RESPIRATORY: Clear to auscultation. Breath sounds equal bilaterally. No wheezes , rales, or rhonchi. GASTROINTESTINAL: Abdomen soft, non-tender, nondistended. Bowel Sounds normoactive x4. MUSCULOSKELETAL: Extremities without clubbing, cyanosis. Left upper extremity trace edema, limited R OM. NEUROLOGICAL: Awake and alert. Repetitive, forgetful. Hard of hearing. No focal neuro deficit. Moves all extremities. Normal speech. Results - Labs CBC & Chem 7: 08/19/18 14:08 08/20/18 06:20 Laboratory Results - last 24 hr 08/19/18 08/19/18 08/19/18 14:08 14:08 14:08 WBC 11.9 H RBC 3.69 L Hgb 11.6 POC Hgb (Calc) Cancelled Hct 34.6 L POC Hct Cancelled MCV 93.7 MCH 31.3 MCHC 33.4 RDW 14.2 Plt Count 306 MPV 8.7 Neut % (Auto) 82.8 H Lymph % (Auto) 6.6 L [place] % (Auto) 9.5 H Eos % (Auto) 0.6 Baso % (Auto) 0.5 Neut # (Auto) 9.8 H Lymph # (Auto) 0.8 L [place] # (Auto) 1.1 H Eos # (Auto) 0.1 Baso # (Auto) 0.1 WBC Differential . Differential Comment Auto diff final PT 10.5 INR 1.0 APTT 27.6 POC Sodium Cancelled Sodium 141 POC Potassium Cancelled Potassium 4.4 POC Chloride Cancelled Chloride 104 Carbon Dioxide 23.3 Anion Gap 14 POC BUN Cancelled BUN 23 H Creatinine 1.01 H POC Creatinine Cancelled Estimated GFR 52 L POC Glucose Cancelled Random Glucose 101 Calcium 8.7 Troponin I Less than 0.02 L TSH 08/19/18 08/19/18 08/20/18 14:08 21:50 06:20 WBC RBC Hgb POC Hgb (Calc) Hct POC Hct MCV MCH MCHC RDW Plt Count MPV Neut % (Auto) Lymph % (Auto) [place] % (Auto) Eos % (Auto) Baso % (Auto) Neut # (Auto) Lymph # (Auto) [place] # (Auto) Eos # (Auto) Baso # (Auto) WBC Differential Differential Comment PT INR APTT POC Sodium Sodium POC Potassium Potassium POC Chloride Chloride Carbon Dioxide Anion Gap POC BUN BUN Creatinine 0.76 POC Creatinine Estimated GFR 72 L POC Glucose Random Glucose Calcium Troponin I TSH 1.670 0.989 - Imaging Impressions Carotid Doppler Study 08/19/18 00:00 CONCLUSION: 1. Right Internal Carotid Artery: Findings indicate <50% stenosis. 2. Left Internal Carotid Artery: Findings indicate <50% stenosis. Chest X-Ray 08/19/18 13:25 CONCLUSION: 1. Left basilar density likely atelectasis. 2. Left-sided rib fractures Forearm X-Ray 08/19/18 13:25 CONCLUSION: No acute abnormality. Humerus X-Ray 08/19/18 13:25 CONCLUSION: Old left clavicular trauma. No acute abnormality. Pelvis X-Ray 08/19/18 13:25 CONCLUSION: No acute abnormality. Tibia/Fibula X-Ray 08/19/18 13:25 CONCLUSION: Osteopenia. No acute abnormality. Abdomen/Pelvis CT 08/19/18 13:26 CONCLUSION: 1. One of the known left rib fractures is again visualized. Please see chest CT report for further details. 2. No evidence of acute visceral injury. 3. Benign-appearing cystic structures in the liver. 4. Mild to moderate diverticulosis. Cervical Spine CT 08/19/18 13:26 CONCLUSION: 1. No fracture or dislocation. 2. Degenerative changes as detailed above with patent central canal throughout. 3. Significant carotid artery atherosclerotic calcifications. Chest CT 08/19/18 13:26 CONCLUSION: 1. Multiple acute left-sided rib fractures. 2. Questionable distal left clavicular fracture. 3. No pneumothorax. 4. Significant coronary artery atherosclerotic calcifications. Head CT 08/19/18 13:26 CONCLUSION: 1. No acute hemorrhage or mass effect. 2. Soft tissue swelling over the left parietal bone with no evidence of fracture. 3. Opacification of the left mastoid air cells consistent with mastoiditis. . Assessment and Plan - Plan Patient is an 87-year-old female who came from an [facility] with past medical history of vertigo, left hip fracture, HLD, HTN who initially came to the hospital for evaluation status post fall, syncopal episode. Syncope, acute -CT Head -no acute hemorrhage or mass-effect. Soft tissue swelling of the left parietal bone with no evidence of fracture. Opacification of the left mastoid air cells consistent with mastoiditis. -US Carotids showed right internal carotid artery indicates less than 50% stenosis. Left internal carotid artery indicated less than 50% stenosis -EKG, No QT prolongation, sinus rhythm with occasional ventricular premature complexes -Echocardiogram pending -Check orthostatic BP -Follow-up labs does not show anemia, or any electrolyte imbalance. -Troponin negative -Possible orthostatic syncope, report of postural change leading to orthostatic hypotension, patient also on beta-jeremiah -We will consult neuro if warranted Status post fall Multiple open wound, abrasion -CT Chest showed multiple acute left-sided rib fractures. Questionable distal left clavicular fracture. No pneumothorax. Significant coronary artery atherosclerosis calcifications -X-ray showed left basilar density likely atelectasis, left-sided rib fractures -Forearm x-ray with no acute abnormality -Humerus x-ray old left clavicular trauma no acute abnormality -Pelvis x-ray no acute abnormality -Tibia-fibula x-ray showed osteopenia no acute abnormality -Abdomen CT and pelvis showed 1 of the known left rib fracture is again visualized. No evidence of acute visceral injury. Benign-appearing cystic structures in the liver. Mild to moderate diverticulosis. -Cervical spine CT showed no fracture or dislocation, degenerative changes with patent central canal, significant carotid artery atherosclerotic calcification -Pain management with bowel regimen -Physical therapy, occupational therapy eval and treat -Started on IV Vanco for her wounds, cellulitis possibly left upper extremity. Does not appear to be with severe infectious process. Will possibly switch to Ancef, pending wound cultures, pending blood cultures. Complaints of hoarseness in her voice -GI was consulted. They have discussed EGD options with patient also colonoscopy as she was also complaining of of tarry stools. However patient cannot decide whether to go with the procedure or not. This is been extensively discussed with patient if she will not proceed with the EGD she can follow up with GI and outpatient. -Speech therapy for swallow evaluation. Patient passed evaluation on regular thin liquid diet HTN -Continue home medication beta-jeremiah. -Monitor for orthostatic hypotension -BB decrease, restart lisinopril DVT prop SCDs Code Status: Full code Discussed Condition With: Patient, nurse Discharge Planning: Plan to DC to SNF, pending blood cultures, pending wound culture
--- NOTE | 2018-08-20 09:04 | P.CONGI ---
History of Present Illness Consult date: 08/20/18 Consult reason: Odynophagia Chief complaint: Syncope with fall, multiple rib fractures History of Present Illness: This is an 87-year-old female who presented to the hospital yesterday after a syncopal episode that resulted in a fall on her way into her doctor's appointment. Our service has been consulted to evaluate patient for reports of odynophagia. Patient states that she has postnasal drip that she feels going into the back of her throat causing her to cough occasionally. Denies any difficulty swallowing, including food getting stuck with meals. Denies any cough or shortness of breath after meals. Denies any painful swallowing. Patient does report issues with heartburn, was started on omeprazole by her PCP with good relief. States that prior to this she was having to take a Tums after every meal for multiple years. Denies any nausea, vomiting, abdominal pain. Patient reports having black, sticky stools. States that she has issues getting the stool off of her skin after bowel movements. States this began after she started taking iron supplementation. Patient has never had an EGD. Thinks she had a colonoscopy last 7 years ago and was told the exam was normal and she would not need this repeated. 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 - Medical History Medical History: Medical History (Last Reviewed 08/20/18 @ 07:24 by Apryl Mata) Vertigo History of fracture of left hip History of high cholesterol Hx of hysterectomy Hypertelorism Osteoporosis Pituitary abnormality - Surgical History Surgical History: Surgical History (Last Reviewed 08/20/18 @ 07:24 by Apryl Mata) Hx of appendectomy - Family History Family History: Family History (Last Updated 08/19/18 @ 19:42 by Soila Looney MD) Brother Stroke Sister COPD (chronic obstructive pulmonary disease) - Tobacco History Second Hand Smoke Exposure: No Smoking Status: Former smoker Tobacco Type: Cigarettes - Alcohol History How Often Do You Have a Drink Containing Alcohol: Monthly or less - Substance Use History Substance History: No History of Abuse - Travel History Recent Travel in the [place] Within the Last 8 Weeks: No Recent Travel Out of the Country Within the Last 8 Weeks: No - Immunization History Tetanus Immunization: Unsure <Opal Mancia - Last Filed: 08/20/18 08:49> - Medical History Medical History: Medical History (Last Reviewed 08/20/18 @ 07:24 by Apryl Mata) Vertigo History of fracture of left hip History of high cholesterol Hx of hysterectomy Hypertelorism Osteoporosis Pituitary abnormality - Surgical History Surgical History: Surgical History (Last Reviewed 08/20/18 @ 07:24 by Apryl Mata) Hx of appendectomy - Family History Family History: Family History (Last Updated 08/19/18 @ 19:42 by Soila Looney MD) Brother Stroke Sister COPD (chronic obstructive pulmonary disease) <William Whalen - Last Filed: 08/20/18 16:36> Medications and Allergies Active Medications: Active Medications Vancomycin HCl 1,250 mg/ (Sodium Chloride) 262.5 mls @ 250 mls/hr IV.SIG Q24H CELESTE Metoprolol Tartrate (Lopressor) 25 mg PO BID CELESTE Last Admin: 08/19/18 22:27 Dose: 25 mg Miscellaneous Information ([facility] [place]dered [place] Info) 1 each OTHER ONCE ONE Stop: 08/22/18 11:46 Pharmacy Profile Note (Vancomycin Consult Pharmacy) 1 each OTHER UNSCH PRN PRN Reason: Pharmacy to dose <Opal Mancia - Last Filed: 08/20/18 08:49> Active Medications: Active Medications Hydrocodone Bitart/Acetaminophen ([place] 5/325) 1 tab PO Q6H PRN PRN Reason: Pain 5-10 Al Hydroxide/Mg Hydroxide (Milk Of Magnesia Liq) 30 ml PO Q12H PRN PRN Reason: Mild Constipation Bisacodyl (Dulcolax Supp) 10 mg RECTAL DAILY PRN PRN Reason: SEVERE CONSITIPATION Ferrous Sulfate (Ferosul) 325 mg PO DAILY CELESTE Vancomycin HCl 1,250 mg/ (Sodium Chloride) 262.5 mls @ 250 mls/hr IV.SIG Q24H CELESTE Last Infusion: 08/20/18 14:09 Dose: Infused Lactulose (Lactulose Liq) 30 ml PO DAILY PRN PRN Reason: SEVERE CONSITIPATION Lisinopril (Prinivil) 10 mg PO DAILY [facility] Metoprolol Tartrate (Lopressor) 12.5 mg PO BID [facility] Miscellaneous (Pill Splitter) 1 each OTHER UNSCH [facility] Miscellaneous Information ([facility] [place]dered Lab Info) 1 each OTHER ONCE ONE Stop: 08/22/18 11:46 Pantoprazole Sodium (Protonix) 20 mg PO DAILY [facility] Pharmacy Profile Note (Vancomycin Consult Pharmacy) 1 each OTHER UNSCH PRN PRN Reason: Pharmacy to dose Pravastatin Sodium (Pravachol) 10 mg PO DAILY [facility] Senna/Docusate Sodium (Adrienne-Colace) 1 tab PO BID [facility] Sennosides (Senokot) 17.2 mg PO Q12H PRN PRN Reason: Moderate Constipation Vitamin D (Vitamin D3) 1,000 unit PO DAILY [facility] <William Whalen - Last Filed: 08/20/18 16:36> Allergies Allergy/AdvReac Type Severity Reaction Status Date / Time codeine AdvReac Intermediate NAUSEA Verified 08/19/18 12:32 Home Medications Medication Instructions Recorded Confirmed Type lisinopril 10 mg PO DAILY 06/16/18 08/19/18 History omeprazole 20 mg PO DAILY 06/16/18 08/19/18 History Ca carb-D3-mag [id number] 2 tab PO DAILY 08/15/18 08/19/18 History [Caltrate + D3 Plus Minerals] cholecalciferol (vitamin D3) 1,000 unit PO DAILY 08/15/18 08/19/18 History [Vitamin D3] ferrous sulfate 325 mg PO DAILY 08/15/18 08/19/18 History hydrocodone-acetaminophen 1 tab PO Q6H PRN 08/15/18 08/19/18 History pravastatin 10 mg PO DAILY 08/15/18 08/19/18 History sennosides-docusate sodium 1 tab PO BID 08/19/18 08/19/18 History [Senna-S] Exam Vital signs: Vital Signs 08/19/18 12:25 08/19/18 12:29 08/19/18 14:30 Temperature 97.8 F Pulse Rate 77 84 Respiratory Rate 18 Blood Pressure 136/63 Pulse Oximetry 99 100 10/10/18 14:34 08/19/18 15:00 08/19/18 15:25 Temperature Pulse Rate 78 80 82 Respiratory Rate Blood Pressure 149/65 H Pulse Oximetry 100 100 100 08/19/18 16:00 08/19/18 17:00 08/19/18 17:42 Temperature Pulse Rate 80 84 86 Respiratory Rate Blood Pressure 153/68 H Pulse Oximetry 98 97 99 08/19/18 21:00 08/19/18 23:27 08/20/18 00:00 Temperature 97.7 F Pulse Rate 82 78 Respiratory Rate 20 Blood Pressure 136/64 139/72 Pulse Oximetry 99 98 96 08/20/18 04:00 Temperature 97.8 F Pulse Rate 81 Respiratory Rate 20 Blood Pressure 132/67 Pulse Oximetry 98 Intake & Output 08/19/18 08/20/18 08/20/18 18:59 06:59 18:59 Intake Total 100 / 100 250 / 250 Output Total 400 / 400 Balance 100 / 100 -150 / -150 Weight 72.575 kg 77.7 kg Intake: IV 100 / 100 250 / 250 Maxipime Inj 1,000 MG In NS Inj 100 / 100 100 ML @ 200 mls/hr IV.SIG ONCE ONE Rx#:[id number] Vancomycin Inj 1,000 MG In NS 250 / 250 Inj 250 ML @ 250 mls/hr IV.SIG ONCE ONE Rx#:[id number] Oral 0 / 0 Output: Urine 400 / 400 Other: Weight On Admission 77.7 kg - Constitutional no acute distress - Routine HEENT Exam Head: Present: normocephalic, atraumatic - Routine Respiratory Exam Absent: accessory muscle use - Routine Abdominal Exam Present: soft, normoactive bowel sounds. Absent: tenderness, distended - Routine Skin Exam Present: dry, warm - Routine Neurological Exam Present: alert, oriented X3 <Opal Mancia - Last Filed: 08/20/18 08:49> Vital signs: Vital Signs 08/19/18 17:00 08/19/18 17:42 08/19/18 21:00 Temperature Pulse Rate 84 86 82 Respiratory Rate Blood Pressure 153/68 H 136/64 Pulse Oximetry 97 99 99 08/19/18 23:27 08/20/18 00:00 08/20/18 04:00 Temperature 97.7 F 97.8 F Pulse Rate 78 81 Respiratory Rate 20 20 Blood Pressure 139/72 132/67 Pulse Oximetry 98 96 98 08/20/18 08:00 08/20/18 09:00 08/20/18 12:00 Temperature 97.2 F L 97.1 F L Pulse Rate 88 103 H 65 Respiratory Rate 18 18 Blood Pressure 147/72 H 157/70 H Pulse Oximetry 98 100 08/20/18 15:13 Temperature Pulse Rate Respiratory Rate Blood Pressure Pulse Oximetry 97 Intake & Output 08/19/18 08/20/18 08/20/18 18:59 06:59 18:59 Intake Total 100 / 100 250 / 250 262.5 / 262.5 Output Total 400 / 400 Balance 100 / 100 -150 / -150 262.5 / 262.5 Weight 72.575 kg 77.7 kg Intake: IV 100 / 100 250 / 250 262.5 / 262.5 Maxipime Inj 1,000 MG In NS Inj 100 / 100 100 ML @ 200 mls/hr IV.SIG ONCE ONE Rx#:[id number] Vancomycin Inj 1,000 MG In NS 250 / 250 Inj 250 ML @ 250 mls/hr IV.SIG ONCE ONE Rx#:[id number] Vancomycin Inj 1,250 MG In NS 262.5 / 262.5 Inj 250 ML @ 250 mls/hr IV.SIG Q24H CELESTE Rx#:[id number] Oral 0 / 0 Output: Urine 400 / 400 Other: Weight On Admission 77.7 kg <William Whalen - Last Filed: 08/20/18 16:36> Results - Labs CBC & Chem 7: 08/19/18 14:08 08/20/18 06:20 Labs: Laboratory Results - last 24 hr 08/19/18 08/19/18 08/19/18 14:08 14:08 14:08 WBC 11.9 H RBC 3.69 L Hgb 11.6 POC Hgb (Calc) Cancelled Hct 34.6 L POC Hct Cancelled MCV 93.7 MCH 31.3 MCHC 33.4 RDW 14.2 Plt Count 306 MPV 8.7 Neut % (Auto) 82.8 H Lymph % (Auto) 6.6 L [place] % (Auto) 9.5 H Eos % (Auto) 0.6 Baso % (Auto) 0.5 Neut # (Auto) 9.8 H Lymph # (Auto) 0.8 L [place] # (Auto) 1.1 H Eos # (Auto) 0.1 Baso # (Auto) 0.1 WBC Differential . Differential Comment Auto diff final PT 10.5 INR 1.0 APTT 27.6 POC Sodium Cancelled Sodium 141 POC Potassium Cancelled Potassium 4.4 POC Chloride Cancelled Chloride 104 Carbon Dioxide 23.3 Anion Gap 14 POC BUN Cancelled BUN 23 H Creatinine 1.01 H POC Creatinine Cancelled Estimated GFR 52 L POC Glucose Cancelled Random Glucose 101 Calcium 8.7 Troponin I Less than 0.02 L TSH 08/19/18 08/19/18 08/20/18 14:08 21:50 06:20 WBC RBC Hgb POC Hgb (Calc) Hct POC Hct MCV MCH MCHC RDW Plt Count MPV Neut % (Auto) Lymph % (Auto) [place] % (Auto) Eos % (Auto) Baso % (Auto) Neut # (Auto) Lymph # (Auto) [place] # (Auto) Eos # (Auto) Baso # (Auto) WBC Differential Differential Comment PT INR APTT POC Sodium Sodium POC Potassium Potassium POC Chloride Chloride Carbon Dioxide Anion Gap POC BUN BUN Creatinine 0.76 POC Creatinine Estimated GFR 72 L POC Glucose Random Glucose Calcium Troponin I TSH 1.670 0.989 - Imaging Impressions Carotid Doppler Study 08/19/18 00:00 CONCLUSION: 1. Right Internal Carotid Artery: Findings indicate <50% stenosis. 2. Left Internal Carotid Artery: Findings indicate <50% stenosis. Chest X-Ray 08/19/18 13:25 CONCLUSION: 1. Left basilar density likely atelectasis. 2. Left-sided rib fractures Forearm X-Ray 08/19/18 13:25 CONCLUSION: No acute abnormality. Humerus X-Ray 08/19/18 13:25 CONCLUSION: Old left clavicular trauma. No acute abnormality. Pelvis X-Ray 08/19/18 13:25 CONCLUSION: No acute abnormality. Tibia/Fibula X-Ray 08/19/18 13:25 CONCLUSION: Osteopenia. No acute abnormality. Abdomen/Pelvis CT 08/19/18 13:26 CONCLUSION: 1. One of the known left rib fractures is again visualized. Please see chest CT report for further details. 2. No evidence of acute visceral injury. 3. Benign-appearing cystic structures in the liver. 4. Mild to moderate diverticulosis. Cervical Spine CT 08/19/18 13:26 CONCLUSION: 1. No fracture or dislocation. 2. Degenerative changes as detailed above with patent central canal throughout. 3. Significant carotid artery atherosclerotic calcifications. Chest CT 08/19/18 13:26 CONCLUSION: 1. Multiple acute left-sided rib fractures. 2. Questionable distal left clavicular fracture. 3. No pneumothorax. 4. Significant coronary artery atherosclerotic calcifications. Head CT 08/19/18 13:26 CONCLUSION: 1. No acute hemorrhage or mass effect. 2. Soft tissue swelling over the left parietal bone with no evidence of fracture. 3. Opacification of the left mastoid air cells consistent with mastoiditis. . <Opal Mancia - Last Filed: 08/20/18 08:49> - Labs CBC & Chem 7: 08/19/18 14:08 08/20/18 06:20 Labs: Laboratory Results - last 24 hr 08/19/18 08/19/18 08/20/18 14:08 21:50 06:20 Creatinine 0.76 Estimated GFR 72 L TSH 1.670 0.989 Urine Color Urine Clarity Urine pH Ur Specific [place] Urine Protein Urine Glucose (UA) Urine Ketones Urine Occult Blood Urine Nitrate Urine Bilirubin Urine Urobilinogen Ur Leukocyte Esterase Urine WBC Ur Squamous Epith Cells Urine Bacteria Micro UA Comment Ur Microscopic Review Urine Culture Comments 08/20/18 14:00 Creatinine Estimated GFR TSH Urine Color Yellow Urine Clarity Clear Urine pH 6.0 Ur Specific [place] 1.019 Urine Protein Negative Urine Glucose (UA) Negative Urine Ketones Negative Urine Occult Blood Negative Urine Nitrate Negative Urine Bilirubin Negative Urine Urobilinogen Less than 2 Ur Leukocyte Esterase Negative Urine WBC 2 Ur Squamous Epith Cells <1 Urine Bacteria Rare H Micro UA Comment Culture not ind Ur Microscopic Review Not Reportable Urine Culture Comments Culture not ind - Imaging Impressions Carotid Doppler Study 08/19/18 00:00 CONCLUSION: 1. Right Internal Carotid Artery: Findings indicate <50% stenosis. 2. Left Internal Carotid Artery: Findings indicate <50% stenosis. Abdomen/Pelvis CT 08/19/18 13:26 CONCLUSION: 1. One of the known left rib fractures is again visualized. Please see chest CT report for further details. 2. No evidence of acute visceral injury. 3. Benign-appearing cystic structures in the liver. 4. Mild to moderate diverticulosis. Cervical Spine CT 08/19/18 13:26 CONCLUSION: 1. No fracture or dislocation. 2. Degenerative changes as detailed above with patent central canal throughout. 3. Significant carotid artery atherosclerotic calcifications. Chest CT 08/19/18 13:26 CONCLUSION: 1. Multiple acute left-sided rib fractures. 2. Questionable distal left clavicular fracture. 3. No pneumothorax. 4. Significant coronary artery atherosclerotic calcifications. Videofluoroscopic Swallow 08/20/18 00:00 CONCLUSION: 1. Speech barium swallow, as above. <William Whalen - Last Filed: 08/20/18 16:36> Assessment and Plan - Plan Assessment Reports of odynophagia although patient denies that at this timepatient reports that she has an occasional cough secondary to postnasal drip, has been advised to follow-up with ENT outpatient. Patient denies any dysphagia, cough or shortness of breath after meals, odynophagia. Denies any nausea, vomiting, abdominal pain. Patient does report that she was having very severe heartburn and having to take a Tums after every meals for multiple years. Her PCP started her on omeprazole and she states that the symptoms are now well controlled. Patient also complaining of black, "sticky" stools, states that it is hard to wash them off her skin after BMs. States this began after she started taking iron supplementation. Patient denies previous EGD. States last colonoscopy was about 7 years ago and she was told she would not need another one. She does have history of colon polyps. Discussed with patient in length, recommended EGD. Discussed both the risks and benefits of procedure with patient. Answered all questions. Patient states that she would like to talk to her PCP about this and does not want to proceed with this procedure at this time. She does not feel it is related to her fall and that is what she wants evaluated at this time. 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 Whalen and this note is written on his behalf <Opal Mancia - Last Filed: 08/20/18 08:49> - Plan Seen and examined with HEAD ANIMAL TRAINER, barium swallow reviewed. Does not want egd. GI will sign off, reconsult as needed. Thank you The exam, history, and the medical decision-making described in the above note were completed with the assistance of the mid-level provider. I reviewed and agree with the findings presented. I attest that I had a [id number] encounter with the patient on the same day, and personally performed and documented my assessment and findings in the medical record. <William Whalen - Last Filed: 08/20/18 16:36>
--- NOTE | 2018-08-20 09:48 | FL ---
EXAM DATE: 08/20/2018 12:00 AM EDT AGE/SEX: 87 years / Female INDICATIONS: Reflux, cough. CLINICAL DATA: This is the patient's initial encounter. Patient reports that signs and symptoms have been present for 1 week and indicates a pain score of 0/10. MEDICAL/SURGICAL HISTORY: None. None. COMPARISON: [facility] [place], CT CERVICAL SPINE W/O CONTRAST, 08/19/2018. . FLUORO TIME: 0.8 minutes IMAGE COUNT: 0 FINDINGS: A modified barium swallow was performed with speech pathology. Patient was given a variety of liquids to swallow. No evidence for significant aspiration. For a full detailed report, see report by the speech pathologist. CONCLUSION: 1. Speech barium swallow, as above. Electronically signed by: Johan Arrington MD 08/20/2018 9:47 AM EDT
[2018-08-20] MEDS: Metoprolol Tartrate 25 MG Tablet PO SCH ×2 (10:01→21:37)
[2018-08-20] MEDS: Vancomycin Inj 1,250 MG in Sodium Chlor 0.9% Inj 250 ML IV.SIG SCH (13:00)
[2018-08-20] MEDS ORDERED: Bisacodyl 10 MG Supp RECTAL PRN (14:20)
[2018-08-20 16:24] LABS: Bacteria,Urine Rare /hpf; Bilirubin,Urine Negative (Negative); Clarity,Urine Clear (Clear); Color,Urine Yellow (Yellw/Straw); Glucose,Urine (UA) Negative (Negative); Leukocyte Esterase,Urine Negative (Negative); Nitrite,Urine Negative (Negative); Specific Gravity,Urine 1.019 (1.002-1.035); Squamous Epithelial Cell,Urine <1 /hpf (0-5)
--- NOTE | 2018-08-20 17:20 | ECHRPT ---
Indication: SYNCOPE CONCLUSIONS Normal left ventricular size. Mild concentric left ventricular hypertrophy. The left ventricular systolic function is hyperdynamic with an estimated ejection fraction in the ra nge of 65- 70%. No regional wall motion abnormality. Grade 1 Diastolic Dysfunction. No significant valvular heart disease. The estimated pulmonary arterial pressure is 37.7 mmHg. BP: / HR: Rhythm: Sinus MEASUREMENTS (Male / Female) Normal Values Technical Quality:Fair 2D ECHO LV Diastolic Diameter PLAX 4.4 cm 4.2 - 5.9 / 3.9 - 5.3 cm LV Systolic Diameter PLAX 3.1 cm IVS Diastolic Thickness 1.2 cm 0.6 - 1.0 / 0.6 - 0.9 cm LVPW Diastolic Thickness 1.2 cm 0.6 - 1.0 / 0.6 - 0.9 cm LV Relative Wall Thickness 0.5 RV Internal Dim ED PLAX 1.5 cm LVOT Diameter 1.9 cm Aortic Root Diameter 2.9 cm LA Systolic Diameter LX 3.2 cm 3.0 - 4.0 / 2.7 - 3.8 cm M-MODE AV Cusp Separation MM 1.8 cm DOPPLER AV Peak Velocity 163.0 cm/s AV Peak Gradient 10.6 mmHg AV Mean Gradient 5.0 mmHg AV Velocity Time Integral 31.3 cm LVOT Peak Velocity 109.0 cm/s LVOT Peak Gradient 4.8 mmHg LVOT Velocity Time Integral 21.6 cm AV Area Cont Eq vti 2.0 cm AV Area Cont Eq pk 1.9 cm Mitral E Point Velocity 80.9 cm/s Mitral A Point Velocity 97.7 cm/s Mitral E to A Ratio 0.8 LV E' Lateral Velocity 9.1 cm/s Mitral E to LV E' Lateral Ratio 8.9 LV E' Septal Velocity 6.0 cm/s Mitral E to LV E' Septal Ratio 13.4 TR Peak Velocity 263.0 cm/s TR Peak Gradient 27.7 mmHg Right Atrial Pressure 10.0 mmHg Pulmonary Artery Systolic Pressu 37.7 mmHg Right Ventricular Systolic Press 37.7 mmHg PV Peak Velocity 70.7 cm/s PV Peak Gradient 2.0 mmHg FINDINGS LEFT VENTRICLE Normal left ventricular size. Mild concentric left ventricular hypertrophy. The left ventricular systolic function is hyperdynamic with an estimated ejection fraction in the ra nge of 65- 70%. RIGHT VENTRICLE Normal right ventricular size and systolic function. LEFT ATRIUM The left atrial size is normal. RIGHT ATRIUM The right atrial size is normal. ATRIAL SEPTUM No atrial level shunt is demonstrated by color flow Doppler interrogation. AORTA The aortic root and proximal ascending aorta are not well visualized. MITRAL VALVE Mitral annular calcification is present. Structurally normal mitral valve. No mitral valve stenosis or regurgitation. AORTIC VALVE Trileaflet aortic valve. No aortic valve stenosis or regurgitation. TRICUSPID VALVE There is trace tricuspid valve regurgitation. The estimated pulmonary arterial pressure is 37.7 mmHg. PULMONARY VALVE The pulmonary valve is not well visualized. VESSELS The inferior vena cava is normal in size. PERICARDIUM No pericardial effusion. Munir Ramos MD (Electronically Signed) Final Date:20 August 2018 17:18
[2018-08-20] MEDS: Pantoprazole Sodium 20 MG DR Tablet PO SCH (17:35)
[2018-08-20] MEDS ORDERED: Sodium Chloride 0.9% 2 ML Flush PRN IV.FLUSH (20:56)
[2018-08-20] MEDS: Sodium Chloride 0.9% 2 ML Flush BID IV.FLUSH SCH (21:37)
[2018-08-20] MEDS: Senna/Docusate Sodium 8.6/50 MG Tablet PO SCH (21:37)
[2018-08-21 07:10] LABS: Baso % (Auto) 0.5 % (0.0-2.0); Eos # (Auto) 0.1 th/mm3 (0.0-0.4); Eos % (Auto) 0.8 % (0.0-4.0); Hematocrit 31.6 % (35.0-46.0); Hemoglobin 10.9 gm/dL (11.6-15.3); Lymph # (Auto) 0.7 th/mm3 (1.0-4.8); Lymph % (Auto) 8.6 % (9.0-44.0); Mean Corpuscular HGB Conc 34.5 % (32.0-36.0); Mean Corpuscular Hemoglobin 31.1 pg (27.0-34.0); Mean Platelet Volume 8.3 fL (7.0-11.0); Mono % (Auto) 11.7 % (0.0-8.0); Neut # (Auto) 6.4 th/mm3 (1.8-7.7); Neut % (Auto) 78.4 % (16.0-70.0); Platelet Count 258 th/mm3 (150-450); Red Blood Count 3.51 mil/mm3 (4.00-5.30); Red Cell Distribution Width 13.7 % (11.6-17.2); White Blood Count 8.2 th/mm3 (4.0-11.0)
[2018-08-21 07:38] LABS: Calcium 8.5 mg/dL (8.5-10.1); Carbon Dioxide 26.2 meq/L (21.0-32.0); Potassium 3.3 meq/L (3.5-5.1)
[2018-08-21] MEDS ORDERED: Potassium Chloride 25 MEQ Effervescent Tablet PO ONE (07:48)
[2018-08-21] MEDS ORDERED: CA CARB D3 MAG OX COP MANG ZN PO SCH (09:00)
--- NOTE | 2018-08-21 09:17 | P.PN ---
Subjective Interval history: Follow-up visit status post fall, syncopal episode, HTN, HLD, hoarseness in her voice. Patient seen and examined today. Hard of hearing. Patient has been trying to get out of bed and was confused last night. Denies SOB/ dyspnea. Knows where she is at, otherwise she does not know what is going on very poor historian and very repetitive. Spoke with niece, caregiver of the patient. They stated that patient has been an ongoing problem of "passing out." States that they do not know what is triggering the passing out of the patient. They have noticed that that even when they are eating dinner patient would be talking and all of a sudden would just passed out. This is been ongoing and patient had multiple falls secondary to this. Physical Exam Vital signs: Vital Signs 08/20/18 12:00 08/20/18 15:13 08/20/18 16:00 Temperature 97.1 F L 97.8 F Pulse Rate 65 77 Respiratory Rate 18 18 Blood Pressure 157/70 H 165/74 H Pulse Oximetry 100 97 98 08/20/18 20:00 08/21/18 00:00 08/21/18 04:00 Temperature 98.2 F 97.4 F L Pulse Rate 91 H 89 82 Respiratory Rate 20 20 Blood Pressure 166/74 H 173/86 H Pulse Oximetry 95 97 08/21/18 05:53 Temperature 98 F Pulse Rate 91 H Respiratory Rate 20 Blood Pressure 154/82 H Pulse Oximetry 98 Intake & Output 08/20/18 08/21/18 08/21/18 18:59 06:59 18:59 Intake Total 842.5 / 842.5 Output Total 700 / 700 Balance 142.5 / 142.5 Weight 74.1 kg Intake: IV 262.5 / 262.5 Vancomycin Inj 1,250 MG In NS 262.5 / 262.5 Inj 250 ML @ 250 mls/hr IV.SIG Q24H [facility] Rx#:[id number] Oral 580 / 580 Output: Urine 700 / 700 Other: # Voids 1 # Incontinent Voids 1 Narrative: GENERAL: This is a well-nourished, elderly female, in no apparent distress. SKIN: Warm and dry.Multiple various skin tears on the left arm and left legs as well as the right leg. Multiple ecchymosis in various healing stages also noted. HEENT: Normocephalic. Pupils equal round and reactive. Nose without bleeding. Airway patent. NECK: Trachea midline. CARDIOVASCULAR: Regular rate and rhythm without murmurs, gallops, or rubs. RESPIRATORY: Clear to auscultation. Breath sounds equal bilaterally. No wheezes , rales, or rhonchi. GASTROINTESTINAL: Abdomen soft, non-tender, nondistended. Bowel Sounds normoactive x4. MUSCULOSKELETAL: Extremities without clubbing, cyanosis. Left upper extremity trace edema, limited R OM. Bilateral lower extremity with spontaneous movement , 4/5 NEUROLOGICAL: Awake and alert. Repetitive, forgetful. Hard of hearing. No focal neuro deficit. Moves all extremities. Normal speech. Results - Labs CBC & Chem 7: 08/21/18 06:52 08/21/18 06:52 Laboratory Results - last 24 hr 08/20/18 08/21/18 08/21/18 14:00 06:52 06:52 WBC 8.2 RBC 3.51 L Hgb 10.9 L Hct 31.6 L MCV 90.0 D MCH 31.1 MCHC 34.5 RDW 13.7 Plt Count 258 MPV 8.3 Neut % (Auto) 78.4 H Lymph % (Auto) 8.6 L [place] % (Auto) 11.7 H Eos % (Auto) 0.8 Baso % (Auto) 0.5 Neut # (Auto) 6.4 Lymph # (Auto) 0.7 L [place] # (Auto) 1.0 H Eos # (Auto) 0.1 Baso # (Auto) 0.0 WBC Differential . Differential Comment Auto diff final Sodium 139 Potassium 3.3 L D Chloride 105 Carbon Dioxide 26.2 Anion Gap 8 BUN 10 Creatinine 0.75 Estimated GFR 73 L Random Glucose 103 Calcium 8.5 Urine Color Yellow Urine Clarity Clear Urine pH 6.0 Ur Specific [place] 1.019 Urine Protein Negative Urine Glucose (UA) Negative Urine Ketones Negative Urine Occult Blood Negative Urine Nitrate Negative Urine Bilirubin Negative Urine Urobilinogen Less than 2 Ur Leukocyte Esterase Negative Urine WBC 2 Ur Squamous Epith Cells <1 Urine Bacteria Rare H Micro UA Comment Culture not ind Ur Microscopic Review Not Reportable Urine Culture Comments Culture not ind Microbiology 08/19/18 17:45 Wound - Leg Gram Stain - Final 08/19/18 17:45 Wound - Leg Wound Culture - Preliminary 08/19/18 17:55 Blood - Peripheral Aerobic Blood Culture - Preliminary No growth in 1 day 08/19/18 17:55 Blood - Peripheral Anaerobic Blood Culture - Preliminary No growth in 1 day 08/19/18 17:50 Blood - Peripheral Aerobic Blood Culture - Preliminary No growth in 1 day 08/19/18 17:50 Blood - Peripheral Anaerobic Blood Culture - Preliminary No growth in 1 day - Imaging Impressions Videofluoroscopic Swallow 08/20/18 00:00 CONCLUSION: 1. Speech barium swallow, as above. Assessment and Plan - Plan Patient is an 87-year-old female who came from an [facility] with past medical history of vertigo, left hip fracture, HLD, HTN who initially came to the hospital for evaluation status post fall, syncopal episode. Syncope, acute -CT Head -no acute hemorrhage or mass-effect. Soft tissue swelling of the left parietal bone with no evidence of fracture. Opacification of the left mastoid air cells consistent with mastoiditis. -US Carotids showed right internal carotid artery indicates less than 50% stenosis. Left internal carotid artery indicated less than 50% stenosis -EKG, No QT prolongation, sinus rhythm with occasional ventricular premature complexes -Echocardiogram EF 65-70%. -Orthostatic BP -Follow-up labs does not show anemia, or any electrolyte imbalance. -Troponin negative -Possible orthostatic syncope, report of postural change leading to orthostatic hypotension, patient also on beta-jeremiah -Increased confusion last night. Confusion also noted this morning. Will do MRI of the brain and on the left shoulder as patient also complains of left shoulder pain and inability to do activities with left upper extremity. -Spoke with niece, caregiver. Appears to be that patient has more syncopal episodes in the outpatient setting and even occurring without patient changing her position, not situational. -Possible underlying dementia. -We will consult neurology for further evaluation. -Continue telemetry monitoring. We will consult cardiology if warranted. Status post fall Multiple open wound, abrasion -CT Chest showed multiple acute left-sided rib fractures. Questionable distal left clavicular fracture. No pneumothorax. Significant coronary artery atherosclerosis calcifications -X-ray showed left basilar density likely atelectasis, left-sided rib fractures -Forearm x-ray with no acute abnormality -Humerus x-ray old left clavicular trauma no acute abnormality -Pelvis x-ray no acute abnormality -[place]-fibula x-ray showed osteopenia no acute abnormality -Abdomen CT and pelvis showed 1 of the known left rib fracture is again visualized. No evidence of acute visceral injury. Benign-appearing cystic structures in the liver. Mild to moderate diverticulosis. -Cervical spine CT showed no fracture or dislocation, degenerative changes with patent central canal, significant carotid artery atherosclerotic calcification -Pain management with bowel regimen -Physical therapy, occupational therapy eval and treat -Started on IV Vanco for her wounds, cellulitis possibly left upper extremity. Does not appear to be with severe infectious process. Will possibly switch to Ancef, pending wound cultures normal scar final - NGTD -DC Vanco Complaints of hoarseness in her voice -GI was consulted. They have discussed EGD options with patient also colonoscopy as she was also complaining of of tarry stools. However patient cannot decide whether to go with the procedure or not. This is been extensively discussed with patient if she will not proceed with the EGD she can follow up with GI and outpatient. -Speech therapy for swallow evaluation. Patient passed evaluation on regular thin liquid diet HTN -Continue home medication beta-jeremiah. -Monitor for orthostatic hypotension -BB decrease, restart lisinopril DVT prop SCDs Full code Discussed with patient, nursing, Dr. Bhatti Discharge Planning: Plan to DC to SNF, pending blood cultures, pending wound culture
[2018-08-21] MEDS: Pantoprazole Sodium 20 MG DR Tablet PO SCH (10:05)
[2018-08-21] MEDS: Lisinopril 10 MG Tablet PO SCH (10:05)
[2018-08-21] MEDS: Senna/Docusate Sodium 8.6/50 MG Tablet PO SCH ×2 (10:05→21:28)
[2018-08-21] MEDS: Metoprolol Tartrate 25 MG Tablet PO SCH ×2 (10:05→21:28)
[2018-08-21] MEDS: Sodium Chloride 0.9% 2 ML Flush BID IV.FLUSH SCH ×2 (10:06→21:29)
[2018-08-21] MEDS: Ferrous Sulfate 325 MG Tablet PO SCH (10:06)
[2018-08-21] MEDS: Vancomycin Inj 1,250 MG in Sodium Chlor 0.9% Inj 250 ML IV.SIG SCH (12:29)
--- NOTE | 2018-08-21 16:20 | P.CONNEU ---
History of Present Illness Service: Neurology Consult date: 08/21/18 Reason for Consult: Syncope, Altered Mental Status Primary Care Provider: Augie Velazquez MD Chief Complaint: syncope History of Present Illness: 87 y/o female presented to hospital after fall. Her friend and daughter report she has been having episodes of syncope since February, which are becoming more frequent and are contributing to falls. Pt is a poor historian and hard of hearing, therefore most of the history is obtained from her family. They state that the syncopal events can occur even when sitting. They note that she may be eating and then will lose consciousness for a few seconds. She is slightly confused when she is aroused. No complaints of headache or lightheadedness. No hx of TIA, stroke, seizure or irregular heart beat. No loss of urine with the event. No convulsions or seizure like activity noted. She does have some memory loss that has been progressively worsening. Her daughter notes that it has been worse since she has been in the hospital. She has been having some hallucinations (picking at bugs and seeing worms on the TV, at the nursing facility it was noted that she has been seeing people that are not there.) Review of Systems unobtainable due to mental status PMFSH - History History Provided By: Patient, Family Member, Friend, Linux Kernel Developer / EMT - Medical History Medical History: Medical History (Last Reviewed 08/21/18 @ 10:10 by Madelin Fuller) Vertigo History of fracture of left hip History of high cholesterol Hx of hysterectomy Hypertelorism Osteoporosis Pituitary abnormality - Surgical History Surgical History: Surgical History (Last Reviewed 08/21/18 @ 10:10 by Madelin Fuller) Hx of appendectomy - Family History Family History: Family History (Last Reviewed 08/21/18 @ 08:36 by Meena Lagunas) Brother Stroke Sister COPD (chronic obstructive pulmonary disease) - Tobacco History Second Hand Smoke Exposure: No Smoking Status: Former smoker Tobacco Type: Cigarettes - Alcohol History How Often Do You Have a Drink Containing Alcohol: Monthly or less - Substance Use History Substance History: No History of Abuse - Travel History Recent Travel in the [facility] Within the Last 8 Weeks: No Recent Travel Out of the Country Within the Last 8 Weeks: No - Immunization History Tetanus Immunization: Unsure Medications and Allergies Allergies Allergy/AdvReac Type Severity Reaction Status Date / Time codeine AdvReac Intermediate NAUSEA Verified 08/19/18 12:32 Home Medications Medication Instructions Recorded Confirmed Type lisinopril 10 mg PO DAILY 06/16/18 08/19/18 History omeprazole 20 mg PO DAILY 06/16/18 08/19/18 History Ca carb-D3-mag [id number] 2 tab PO DAILY 08/15/18 08/19/18 History [Caltrate + D3 Plus Minerals] cholecalciferol (vitamin D3) 1,000 unit PO DAILY 08/15/18 08/19/18 History [Vitamin D3] ferrous sulfate 325 mg PO DAILY 08/15/18 08/19/18 History hydrocodone-acetaminophen 1 tab PO Q6H PRN 08/15/18 08/19/18 History pravastatin 10 mg PO DAILY 08/15/18 08/19/18 History sennosides-docusate sodium 1 tab PO BID 08/19/18 08/19/18 History [Senna-S] Active Medications: Active Medications Hydrocodone Bitart/Acetaminophen ([place] 5/325) 1 tab PO Q6H PRN PRN Reason: Pain 5-10 Al Hydroxide/Mg Hydroxide (Milk Of Magnesia Liq) 30 ml PO Q12H PRN PRN Reason: Mild Constipation Bisacodyl (Dulcolax Supp) 10 mg RECTAL DAILY PRN PRN Reason: SEVERE CONSITIPATION Ferrous Sulfate (Ferosul) 325 mg PO DAILY [facility] Last Admin: 08/21/18 10:06 Dose: 325 mg Lactulose (Lactulose Liq) 30 ml PO DAILY PRN PRN Reason: SEVERE CONSITIPATION Lisinopril (Prinivil) 10 mg PO DAILY [facility] Last Admin: 08/21/18 10:05 Dose: 10 mg Metoprolol Tartrate (Lopressor) 12.5 mg PO BID [facility] Last Admin: 08/21/18 10:05 Dose: 12.5 mg Miscellaneous (Pill Splitter) 1 each OTHER UNSCH [facility] Miscellaneous Information ([facility] Ordered Lab Info) 1 each OTHER ONCE ONE Stop: 08/22/18 11:46 Pantoprazole Sodium (Protonix) 20 mg PO DAILY [facility] Last Admin: 08/21/18 10:05 Dose: 20 mg Pravastatin Sodium (Pravachol) 10 mg PO DAILY [facility] Last Admin: 08/21/18 10:05 Dose: 10 mg Senna/Docusate Sodium (Adrienne-Colace) 1 tab PO BID [facility] Last Admin: 08/21/18 10:05 Dose: 1 tab Sennosides (Senokot) 17.2 mg PO Q12H PRN PRN Reason: Moderate Constipation Sodium Chloride (Ns Flush) 2 ml IV.FLUSH BID [facility] Last Admin: 08/21/18 10:06 Dose: 2 ml Sodium Chloride (Ns Flush) 2 ml IV.FLUSH PRN PRN PRN Reason: FLUSH AFTER USING IV ACCESS Vitamin D (Vitamin D3) 1,000 unit PO DAILY [facility] Last Admin: 08/21/18 10:05 Dose: 1,000 unit Exam Vital signs: Vital Signs 08/20/18 20:00 08/21/18 00:00 08/21/18 04:00 Temperature 98.2 F 97.4 F L Pulse Rate 91 H 89 82 Respiratory Rate 20 20 Blood Pressure 166/74 H 173/86 H Pulse Oximetry 95 97 08/21/18 05:53 08/21/18 08:00 08/21/18 09:00 Temperature 98 F 97.4 F L Pulse Rate 91 H 91 H 87 Respiratory Rate 20 18 Blood Pressure 154/82 H 166/77 H Pulse Oximetry 98 97 08/21/18 12:00 Temperature 97.5 F L Pulse Rate 80 Respiratory Rate 18 Blood Pressure 121/58 L Pulse Oximetry 96 Intake & Output 08/20/18 08/21/18 08/21/18 18:59 06:59 18:59 Intake Total 842.5 / 842.5 Output Total 700 / 700 Balance 142.5 / 142.5 Weight 74.1 kg Intake: IV 262.5 / 262.5 Vancomycin Inj 1,250 MG In NS 262.5 / 262.5 Inj 250 ML @ 250 mls/hr IV.SIG Q24H [facility] Rx#:[id number] Oral 580 / 580 Output: Urine 700 / 700 Other: # Voids 1 # Incontinent Voids 1 - Routine Neurological Exam Pt is alert to self, knows it is August 2018, knows her , [facility] II-XII - grossly intact, no nystagmus, no facial asymmetry, tongue midline, hard of hearing motor- moving all extremities, michaela UE are in restraints, has difficulty following commands for formal testing, cooling room attendant equal, no focal deficit sensory - unreliable reflexes 1+ michaela plantars downgoing unable to assess cerebellar due to restraints no tremor noted gait withheld no aphasia or dysarthria Results - Labs CBC & Chem 7: 08/22/18 04:30 08/22/18 04:30 Labs: Laboratory Results - last 24 hr 08/20/18 08/21/18 08/21/18 14:00 06:52 06:52 WBC 8.2 RBC 3.51 L Hgb 10.9 L Hct 31.6 L MCV 90.0 D MCH 31.1 MCHC 34.5 RDW 13.7 Plt Count 258 MPV 8.3 Neut % (Auto) 78.4 H Lymph % (Auto) 8.6 L [place] % (Auto) 11.7 H Eos % (Auto) 0.8 Baso % (Auto) 0.5 Neut # (Auto) 6.4 Lymph # (Auto) 0.7 L [place] # (Auto) 1.0 H Eos # (Auto) 0.1 Baso # (Auto) 0.0 WBC Differential . Differential Comment Auto diff final Sodium 139 Potassium 3.3 L D Chloride 105 Carbon Dioxide 26.2 Anion Gap 8 BUN 10 Creatinine 0.75 Estimated GFR 73 L Random Glucose 103 Calcium 8.5 Urine Color Yellow Urine Clarity Clear Urine pH 6.0 Ur Specific [place] 1.019 Urine Protein Negative Urine Glucose (UA) Negative Urine Ketones Negative Urine Occult Blood Negative Urine Nitrate Negative Urine Bilirubin Negative Urine Urobilinogen Less than 2 Ur Leukocyte Esterase Negative Urine WBC 2 Ur Squamous Epith Cells <1 Urine Bacteria Rare H Micro UA Comment Culture not ind Ur Microscopic Review Not Reportable Urine Culture Comments Culture not ind Review/Management - Diagnosis (1) Syncope Code(s): R55 - Syncope and collapse Status: Acute Current Visit: Yes (2) Memory loss Code(s): R41.3 - Other amnesia Status: Acute Current Visit: Yes - Review/Management Plan: continue telemetry CUS unremarkable will get MRI head, MRA COW check EEG to r/o seizure activity continue to monitor orthostatics labs for memory loss Addendum note pt seen and examined d/w PA w/u ongoing and if neg consider event monitor vs loop (1) Syncope Qualifiers: Syncope type: unspecified Qualified Code(s): R55 - Syncope and collapse
--- NOTE | 2018-08-21 17:16 | MR ---
EXAM DATE: 08/21/2018 12:00 AM EDT AGE/SEX: 87 years / Female INDICATIONS: . Dementia. CLINICAL DATA: This is the patient's initial encounter. Patient reports that signs and symptoms have been present for 1 day and indicates a pain score of 6/10. MEDICAL/SURGICAL HISTORY: Hypercholesterolemia. Hypertension. Abnormal pituitary. Hysterectom y. Appendectomy. Left hip sx. COMPARISON: No prior exams available for comparison. TECHNIQUE: Multiplanar, multisequence examination of the brain was performed without contrast. FINDINGS: This examination is significantly degraded by motion artifact. Cerebrum: Atrophy. The ventricles are normal for age. No evidence of midline shift, mass lesion, he morrhage or acute infarction. No extraaxial fluid collections are seen. The pituitary gland and sup rasellar cistern are normal in configuration. White Matter: No significant signal abnormalities are seen in the white matter. Posterior Fossa: The cerebellum and brainstem are intact. The 4th ventricle is midline. The cerebel lopontine angle is unremarkable. The cerebellar tonsils are normal in position. Diffusion Imaging: No focal areas of restricted diffusion are seen. No evidence of acute infarction . Extracranial: The visualized portions of the orbits and paranasal sinuses are unremarkable. CONCLUSION: 1. This examination is significantly degraded by motion artifact. 2. No gross acute intracranial abnormality. 3. Fluid signal within the left mastoid air cells. Clinical evaluation for any signs of acute mastoi ditis suggested. Electronically signed by: Michael Borden MD 08/21/2018 5:15 PM EDT
--- NOTE | 2018-08-21 17:40 | MR ---
EXAM DATE: 08/21/2018 4:00 PM EDT AGE/SEX: 87 years / Female INDICATIONS: Altered mental status. CLINICAL DATA: This is the patient's initial encounter. Patient reports that signs and symptoms have been present for 1 day and indicates a pain score of 0/10. MEDICAL/SURGICAL HISTORY: Hypertension. Osteoporosis. Appendectomy. Hysterectomy. Left hip OR IF. [place] [facility] [place].. . TECHNIQUE: 3D [id number] MRA was performed. Source images, multiplanar STS MIP, and 3D volum e MIP reconstructions were reviewed. FINDINGS: The exam is degraded by motion artifact. There is excellent visualization of the major intracranial a rteries out to the second-order branch vessels. Variant anatomy with persistent circulation on the right. Dominant left A1 segment with diffusely small caliber right A1 segment. There is no evide nce for aneurysm, vessel truncation or stenosis, and no evidence for vascular malformation. CONCLUSION: 1. Study degraded by motion. 2. No acute abnormality observed. Electronically signed by: Michael Borden MD 08/21/2018 5:39 PM EDT
[2018-08-21 20:29] LABS: Folate 13.3 ng/mL (3.1-17.5); Free T4 (Free Thyroxine) 1.25 ng/dL (0.76-1.46)
[2018-08-22 04:52] LABS: Baso % (Auto) 0.6 % (0.0-2.0); Eos # (Auto) 0.2 th/mm3 (0.0-0.4); Eos % (Auto) 3.2 % (0.0-4.0); Hemoglobin 10.6 gm/dL (11.6-15.3); Lymph # (Auto) 1.3 th/mm3 (1.0-4.8); Lymph % (Auto) 18.5 % (9.0-44.0); Mean Corpuscular HGB Conc 34.2 % (32.0-36.0); Mean Corpuscular Hemoglobin 31.6 pg (27.0-34.0); Mean Corpuscular Volume 92.5 fL (80.0-100.0); Mean Platelet Volume 8.2 fL (7.0-11.0); Mono % (Auto) 14.2 % (0.0-8.0); Neut # (Auto) 4.4 th/mm3 (1.8-7.7); Neut % (Auto) 63.5 % (16.0-70.0); Platelet Count 247 th/mm3 (150-450); Red Blood Count 3.35 mil/mm3 (4.00-5.30); Red Cell Distribution Width 13.8 % (11.6-17.2); White Blood Count 6.9 th/mm3 (4.0-11.0)
[2018-08-22 05:16] LABS: Calcium 8.3 mg/dL (8.5-10.1); Carbon Dioxide 27.8 meq/L (21.0-32.0); Magnesium 2.3 mg/dL (1.5-2.5); Potassium 3.7 meq/L (3.5-5.1)
[2018-08-22] MEDS: Senna/Docusate Sodium 8.6/50 MG Tablet PO SCH ×2 (08:44→20:17)
[2018-08-22] MEDS: Lisinopril 10 MG Tablet PO SCH (08:44)
[2018-08-22] MEDS: Pantoprazole Sodium 20 MG DR Tablet PO SCH (08:44)
[2018-08-22] MEDS: Metoprolol Tartrate 25 MG Tablet PO SCH ×2 (08:44→20:17)
[2018-08-22] MEDS: Ferrous Sulfate 325 MG Tablet PO SCH (08:45)
[2018-08-22] MEDS: Sodium Chloride 0.9% 2 ML Flush BID IV.FLUSH SCH ×2 (08:47→20:17)
[2018-08-22] MEDS ORDERED: Levofloxacin 500 mg Premix Inj 500 MG/100 ML PIGGYBACK IV.SIG SCH (09:00)
--- NOTE | 2018-08-22 09:01 | P.PN ---
Subjective Interval history: Follow-up visit status post fall, syncopal episode, HTN, HLD, hoarseness. Patient seen and examined today. Hard of hearing. Repetitive. Cussed with patient results of MRI. States that she has been having postnasal drip but does not complain of any ear pain. Denies SOB/ dyspnea. Knows where she is at, otherwise she does not know what is going on very poor historian and very repetitive. Spoke with niece and nephew. Excessively discussed patient's condition and plan for discharge to halfway facility. Physical Exam Vital signs: Vital Signs 08/21/18 12:00 08/21/18 16:00 08/21/18 17:19 Temperature 97.5 F L 97.4 F L Pulse Rate 80 83 Respiratory Rate 18 20 Blood Pressure 121/58 L 117/56 L Pulse Oximetry 96 97 97 08/21/18 20:00 08/22/18 00:00 08/22/18 04:00 Temperature 97.9 F 97.6 F 97.6 F Pulse Rate 78 62 64 Respiratory Rate 18 18 18 Blood Pressure 126/60 104/60 121/64 Pulse Oximetry 97 97 100 08/22/18 08:00 Temperature 97.4 F L Pulse Rate 76 Respiratory Rate 18 Blood Pressure 129/61 Pulse Oximetry 95 Intake & Output 08/21/18 08/22/18 08/22/18 18:59 06:59 18:59 Intake Total 502.5 / 502.5 Output Total 400 / 400 Balance 102.5 / 102.5 Weight 73.9 kg Intake: IV 262.5 / 262.5 Vancomycin Inj 1,250 MG In NS 262.5 / 262.5 Inj 250 ML @ 250 mls/hr IV.SIG Q24H CELESTE Rx#:[id number] Oral 240 / 240 Output: Urine 400 / 400 Other: # Incontinent Voids 1 Narrative: GENERAL: This is a well-nourished, elderly female, in no apparent distress. SKIN: Warm and dry.Multiple various skin tears on the left arm and left legs as well as the right leg. Multiple ecchymosis in various healing stages also noted. HEENT: Normocephalic. Pupils equal round and reactive. Nose without bleeding. Airway patent. NECK: Trachea midline. CARDIOVASCULAR: Regular rate and rhythm without murmurs, gallops, or rubs. RESPIRATORY: Clear to auscultation. Breath sounds equal bilaterally. No wheezes , rales, or rhonchi. GASTROINTESTINAL: Abdomen soft, non-tender, nondistended. Bowel Sounds normoactive x4. MUSCULOSKELETAL: Extremities without clubbing, cyanosis. Left upper extremity trace edema, limited R OM. Bilateral lower extremity with spontaneous movement , 4/5 NEUROLOGICAL: Awake and alert. Repetitive, forgetful. Hard of hearing. No focal neuro deficit. Moves all extremities. Normal speech. Results - Labs CBC & Chem 7: 08/22/18 04:30 08/22/18 04:30 Laboratory Results - last 24 hr 08/21/18 08/21/18 08/21/18 14:53 14:53 19:34 WBC RBC Hgb Hct MCV MCH MCHC RDW Plt Count MPV Neut % (Auto) Lymph % (Auto) [place] % (Auto) Eos % (Auto) Baso % (Auto) Neut # (Auto) Lymph # (Auto) [place] # (Auto) Eos # (Auto) Baso # (Auto) WBC Differential Differential Comment Sodium Potassium Chloride Carbon Dioxide Anion Gap BUN Creatinine Estimated GFR Random Glucose Calcium Magnesium 2.2 Ammonia Less than 10 L Vitamin B12 420 Folate Free T4 08/21/18 08/22/18 08/22/18 19:34 04:30 04:30 WBC 6.9 RBC 3.35 L Hgb 10.6 L Hct 31.0 L MCV 92.5 MCH 31.6 MCHC 34.2 RDW 13.8 Plt Count 247 MPV 8.2 Neut % (Auto) 63.5 Lymph % (Auto) 18.5 [place] % (Auto) 14.2 H Eos % (Auto) 3.2 Baso % (Auto) 0.6 Neut # (Auto) 4.4 Lymph # (Auto) 1.3 [place] # (Auto) 1.0 H Eos # (Auto) 0.2 Baso # (Auto) 0.0 WBC Differential . Differential Comment Auto diff final Sodium 137 Potassium 3.7 Chloride 104 Carbon Dioxide 27.8 Anion Gap 5 BUN 16 Creatinine 0.83 Estimated GFR 65 L Random Glucose 94 Calcium 8.3 L Magnesium 2.3 Ammonia Vitamin B12 Folate 13.3 Free T4 1.25 Microbiology 08/19/18 17:55 Blood - Peripheral Aerobic Blood Culture - Preliminary No growth in 2 days 08/19/18 17:55 Blood - Peripheral Anaerobic Blood Culture - Preliminary No growth in 2 days 08/19/18 17:50 Blood - Peripheral Aerobic Blood Culture - Preliminary No growth in 2 days 08/19/18 17:50 Blood - Peripheral Anaerobic Blood Culture - Preliminary No growth in 2 days 08/19/18 17:45 Wound - Leg Gram Stain - Final 08/19/18 17:45 Wound - Leg Wound Culture - Final Heavy growth normal skin scar No anaerobes isolated - Imaging Impressions Head MRI 08/21/18 00:00 CONCLUSION: 1. This examination is significantly degraded by motion artifact. 2. No gross acute intracranial abnormality. 3. Fluid signal within the left mastoid air cells. Clinical evaluation for any signs of acute mastoiditis suggested. Head MRA 08/21/18 00:00 CONCLUSION: 1. Study degraded by motion. 2. No acute abnormality observed. Assessment and Plan - Plan Patient is an 87-year-old female who came from an [facility] with past medical history of vertigo, left hip fracture, HLD, HTN who initially came to the hospital for evaluation status post fall, syncopal episode. Syncope, acute -CT Head -no acute hemorrhage or mass-effect. Soft tissue swelling of the left parietal bone with no evidence of fracture. Opacification of the left mastoid air cells consistent with mastoiditis. -US Carotids showed right internal carotid artery indicates less than 50% stenosis. Left internal carotid artery indicated less than 50% stenosis -EKG, No QT prolongation, sinus rhythm with occasional ventricular premature complexes -Echocardiogram EF 65-70%. -Orthostatic BP -Follow-up labs does not show anemia, or any electrolyte imbalance. -Troponin negative -Possible orthostatic syncope, report of postural change leading to orthostatic hypotension, patient also on beta-jeremiah -Spoke with niece, caregiver. Appears to be that patient has more syncopal episodes in the outpatient setting and even occurring without patient changing her position, not situational. -Possible underlying dementia. -We will consult neurology for further evaluation. -Continue telemetry monitoring. -MRI motion artifact. No gross acute intracranial abnormality. Fluid signal within the left mastoid air cells. Clinical evaluation for any signs of acute mastoiditis -MRA no acute abnormality -EEG pending -Consult cardiology per neuro Holter vs loop recorder Mastoiditis, acute -Levaquin given. Will switch over to Augmentin. -Continue to monitor Status post fall Multiple open wound, abrasion -CT Chest showed multiple acute left-sided rib fractures. Questionable distal left clavicular fracture. No pneumothorax. Significant coronary artery atherosclerosis calcifications -X-ray showed left basilar density likely atelectasis, left-sided rib fractures -Forearm x-ray with no acute abnormality -Humerus x-ray old left clavicular trauma no acute abnormality -Pelvis x-ray no acute abnormality -Tibia-fibula x-ray showed osteopenia no acute abnormality -Abdomen CT and pelvis showed 1 of the known left rib fracture is again visualized. No evidence of acute visceral injury. Benign-appearing cystic structures in the liver. Mild to moderate diverticulosis. -Cervical spine CT showed no fracture or dislocation, degenerative changes with patent central canal, significant carotid artery atherosclerotic calcification -Pain management with bowel regimen -Physical therapy, occupational therapy eval and treat -Started on IV Vanco for her wounds, cellulitis possibly left upper extremity. Does not appear to be with severe infectious process. Will possibly switch to Ancef, pending wound cultures normal scar final -BC NGTD -DC Vanco Complaints of hoarseness in her voice -GI was consulted. They have discussed EGD options with patient also colonoscopy as she was also complaining of of tarry stools. However patient cannot decide whether to go with the procedure or not. This is been extensively discussed with patient if she will not proceed with the EGD she can follow up with GI and outpatient. -Speech therapy for swallow evaluation. Patient passed evaluation on regular thin liquid diet HTN -Continue home medication beta-jeremiah. -Monitor for orthostatic hypotension -BB decrease, restart lisinopril DVT prop SCDs Full code Discussed with patient, nursing, Dr. Bhatti Discharge Planning: Plan to DC to SNF, pending blood cultures, pending wound culture
--- NOTE | 2018-08-22 11:03 | P.PN ---
Subjective Interval history: no new issues stable rib pain from fall and fx Physical Exam Vital signs: Vital Signs 08/21/18 12:00 08/21/18 16:00 08/21/18 17:19 Temperature 97.5 F L 97.4 F L Pulse Rate 80 83 Respiratory Rate 18 20 Blood Pressure 121/58 L 117/56 L Pulse Oximetry 96 97 97 08/21/18 20:00 08/22/18 00:00 08/22/18 04:00 Temperature 97.9 F 97.6 F 97.6 F Pulse Rate 78 62 64 Respiratory Rate 18 18 18 Blood Pressure 126/60 104/60 121/64 Pulse Oximetry 97 97 100 08/22/18 08:00 Temperature 97.4 F L Pulse Rate 76 Respiratory Rate 18 Blood Pressure 129/61 Pulse Oximetry 95 Intake & Output 08/21/18 08/22/18 08/22/18 18:59 06:59 18:59 Intake Total 502.5 / 502.5 Output Total 400 / 400 Balance 102.5 / 102.5 Weight 73.9 kg Intake: IV 262.5 / 262.5 Vancomycin Inj 1,250 MG In NS 262.5 / 262.5 Inj 250 ML @ 250 mls/hr IV.SIG Q24H CELESTE Rx#:[id number] Oral 240 / 240 Output: Urine 400 / 400 Other: # Incontinent Voids 1 Date of Last Bowel Movement 08/21/18 Narrative: awake alert knows self when her bday is this upcoming week age know hosp name month date year fluent motor no focal deficits gait per PT Results - Labs CBC & Chem 7: 08/22/18 04:30 08/22/18 04:30 Laboratory Results - last 24 hr 08/21/18 08/21/18 08/21/18 14:53 14:53 19:34 WBC RBC Hgb Hct MCV MCH MCHC RDW Plt Count MPV Neut % (Auto) Lymph % (Auto) [place] % (Auto) Eos % (Auto) Baso % (Auto) Neut # (Auto) Lymph # (Auto) [place] # (Auto) Eos # (Auto) Baso # (Auto) WBC Differential Differential Comment Sodium Potassium Chloride Carbon Dioxide Anion Gap BUN Creatinine Estimated GFR Random Glucose Calcium Magnesium 2.2 Ammonia Less than 10 L Vitamin B12 420 Folate Free T4 08/21/18 08/22/18 08/22/18 19:34 04:30 04:30 WBC 6.9 RBC 3.35 L Hgb 10.6 L Hct 31.0 L MCV 92.5 MCH 31.6 MCHC 34.2 RDW 13.8 Plt Count 247 MPV 8.2 Neut % (Auto) 63.5 Lymph % (Auto) 18.5 [place] % (Auto) 14.2 H Eos % (Auto) 3.2 Baso % (Auto) 0.6 Neut # (Auto) 4.4 Lymph # (Auto) 1.3 [place] # (Auto) 1.0 H Eos # (Auto) 0.2 Baso # (Auto) 0.0 WBC Differential . Differential Comment Auto diff final Sodium 137 Potassium 3.7 Chloride 104 Carbon Dioxide 27.8 Anion Gap 5 BUN 16 Creatinine 0.83 Estimated GFR 65 L Random Glucose 94 Calcium 8.3 L Magnesium 2.3 Ammonia Vitamin B12 Folate 13.3 Free T4 1.25 Microbiology 08/19/18 17:55 Blood - Peripheral Aerobic Blood Culture - Preliminary No growth in 2 days 08/19/18 17:55 Blood - Peripheral Anaerobic Blood Culture - Preliminary No growth in 2 days 08/19/18 17:50 Blood - Peripheral Aerobic Blood Culture - Preliminary No growth in 2 days 08/19/18 17:50 Blood - Peripheral Anaerobic Blood Culture - Preliminary No growth in 2 days 08/19/18 17:45 Wound - Leg Gram Stain - Final 08/19/18 17:45 Wound - Leg Wound Culture - Final Heavy growth normal skin scar No anaerobes isolated - Imaging Impressions Head MRI 08/21/18 00:00 CONCLUSION: 1. This examination is significantly degraded by motion artifact. 2. No gross acute intracranial abnormality. 3. Fluid signal within the left mastoid air cells. Clinical evaluation for any signs of acute mastoiditis suggested. Head MRA 08/21/18 00:00 CONCLUSION: 1. Study degraded by motion. 2. No acute abnormality observed. Assessment and Plan - Assessment (1) Syncope Code(s): R55 - Syncope and collapse Status: Acute (2) Memory loss Code(s): R41.3 - Other amnesia Status: Acute - Plan eeg pending labs reviewed pending b1 and b6 pt eval orthostatic check please and document holter/event monitor vs loop if all w/u neg. (1) Syncope Qualifiers: Syncope type: unspecified Qualified Code(s): R55 - Syncope and collapse
[2018-08-22] MEDS ORDERED: Pharmacy Ordered Lab Info OTHER ONE (11:45)
--- NOTE | 2018-08-22 20:05 | MG ---
cc: Felipa Neff MD EEG NUMBER: [id number], room 1506. INDICATION: With photic done, awake, drowsy, asleep, alert. CT shows no acute findings to suggest stroke, admitted with change in mental status and syncope. DESCRIPTION OF RECORD: There is some mild slowing of background at times, predominantly of 5-6 Hz. A lot of artifact in the frontal eye orellana, I am guessing the patient is closing their eyes and tenting their forehead. Photic stimulation does elicit a driving response. The patient tends to fall asleep more delta frequencies noted. There is no epileptiform features. IMPRESSION: Some mild slowing of the background may be due to mild encephalopathic process, but no evidence of any epileptic activity. Felipa Neff MD DF/ct , 07:16 PM , 07:21 PM
[2018-08-23] MEDS: Amoxicillin/Clavulanate 875/125 MG Tablet PO SCH ×2 (08:17→20:23)
[2018-08-23] MEDS: Lisinopril 10 MG Tablet PO SCH (08:17)
[2018-08-23] MEDS: Senna/Docusate Sodium 8.6/50 MG Tablet PO SCH ×2 (08:17→20:23)
[2018-08-23] MEDS: Pantoprazole Sodium 20 MG DR Tablet PO SCH (08:17)
[2018-08-23] MEDS: Sodium Chloride 0.9% 2 ML Flush BID IV.FLUSH SCH ×2 (08:17→20:25)
[2018-08-23] MEDS: Ferrous Sulfate 325 MG Tablet PO SCH (08:17)
--- NOTE | 2018-08-23 10:20 | P.PN ---
Subjective Interval history: Follow-up visit status post fall, syncopal episode, HTN, HLD, hoarseness. Patient seen and examined today. Hard of hearing. Repetitive. Periods of confusion. Oriented to date, place, person. Periods of hallucination, patient stating that "I think this is a maternity osuna because I saw an old lady outside cart resting a baby." Patient was assisted getting out of bed x3 assist. Unsteady with bilateral knees. But able to transfer with a lot of coaching. Denies SOB/ dyspnea. Denies headaches, dizziness, fevers, chills. Denies nausea, vomiting, diarrhea, dysuria. Physical Exam Vital signs: Vital Signs 08/22/18 11:06 08/22/18 12:00 08/22/18 16:00 Temperature 97.4 F L 98.1 F Pulse Rate 75 85 Respiratory Rate 18 20 Blood Pressure 118/60 131/62 Pulse Oximetry 96 99 96 08/22/18 17:42 08/22/18 20:00 08/22/18 20:20 Temperature 97.6 F Pulse Rate 65 Respiratory Rate 18 Blood Pressure 95/54 L Pulse Oximetry 96 97 96 08/23/18 00:00 08/23/18 00:12 08/23/18 04:00 Temperature 97.6 F 97.6 F Pulse Rate 62 60 Respiratory Rate 18 18 18 Blood Pressure 105/50 L 100/53 L Pulse Oximetry 98 99 08/23/18 08:00 08/23/18 09:51 Temperature 97.6 F Pulse Rate 69 Respiratory Rate 18 Blood Pressure 126/68 Pulse Oximetry 96 96 Intake & Output 08/22/18 08/23/18 08/23/18 18:59 06:59 18:59 Intake Total 700 / 700 Output Total 300 / 300 Balance 400 / 400 Weight 97.6 kg Intake: IV 100 / 100 Levaquin 500 mg Premix Inj 500 100 / 100 mg In 100 ml @ 100 mls/hr IV. SIG Q24H CELESTE Rx#:[id number] Oral 600 / 600 Output: Urine 300 / 300 Other: # Voids 3 1 Date of Last Bowel Movement 08/21/18 08/22/18 08/22/18 Narrative: GENERAL: This is a well-nourished, elderly female, in no apparent distress. SKIN: Warm and dry.Multiple various skin tears on the left arm and left legs as well as the right leg. Multiple ecchymosis in various healing stages also noted. HEENT: Normocephalic. Pupils equal round and reactive. Nose without bleeding. Airway patent. NECK: Trachea midline. CARDIOVASCULAR: Regular rate and rhythm without murmurs, gallops, or rubs. RESPIRATORY: Clear to auscultation. Breath sounds equal bilaterally. No wheezes , rales, or rhonchi. GASTROINTESTINAL: Abdomen soft, non-tender, nondistended. Bowel Sounds normoactive x4. MUSCULOSKELETAL: Extremities without clubbing, cyanosis. Left upper extremity trace edema, limited R OM. Bilateral lower extremity with spontaneous movement , 4/5 NEUROLOGICAL: Awake and alert. Repetitive, forgetful. Hard of hearing. No focal neuro deficit. Moves all extremities. Normal speech. Results - Labs CBC & Chem 7: 08/22/18 04:30 08/22/18 04:30 Laboratory Results - last 24 hr 08/22/18 12:58 Vancomycin Trough 9.6 Microbiology 08/19/18 17:55 Blood - Peripheral Aerobic Blood Culture - Preliminary No growth in 3 days 08/19/18 17:55 Blood - Peripheral Anaerobic Blood Culture - Preliminary No growth in 3 days 08/19/18 17:50 Blood - Peripheral Aerobic Blood Culture - Preliminary No growth in 3 days 08/19/18 17:50 Blood - Peripheral Anaerobic Blood Culture - Preliminary No growth in 3 days Assessment and Plan - Plan Patient is an 87-year-old female who came from an [facility] with past medical history of vertigo, left hip fracture, HLD, HTN who initially came to the hospital for evaluation status post fall, syncopal episode. Syncope, acute -CT Head -no acute hemorrhage or mass-effect. Soft tissue swelling of the left parietal bone with no evidence of fracture. Opacification of the left mastoid air cells consistent with mastoiditis. -US Carotids showed right internal carotid artery indicates less than 50% stenosis. Left internal carotid artery indicated less than 50% stenosis -EKG, No QT prolongation, sinus rhythm with occasional ventricular premature complexes -Echocardiogram EF 65-70%. -Orthostatic BP -Follow-up labs does not show anemia, or any electrolyte imbalance. Troponin negative -Possible orthostatic syncope, report of postural change leading to orthostatic hypotension, patient also on beta-jeremiah. Spoke with niece, caregiver. Appears to be that patient has more syncopal episodes in the outpatient setting and even occurring without patient changing her position, not situational. -Consult neurology for further evaluation, appreciate recommendations. -Continue telemetry monitoring. -MRI motion artifact. No gross acute intracranial abnormality. Fluid signal within the left mastoid air cells. Clinical evaluation for any signs of acute mastoiditis -MRA no acute abnormality -EEG negative -Consult cardiology per neuro Holter vs loop recorder. Plan for loop recorder tomorrow as per Dr. Salinas. N.p.o. after midnight. Plan to DC possibly Friday. Mastoiditis, acute -Continue Augmentin x 7100 days. Start date 08/23 -This may also contribute to impaired balance of patient. Status post fall Multiple open wound, abrasion -CT Chest showed multiple acute left-sided rib fractures. Questionable distal left clavicular fracture. No pneumothorax. Significant coronary artery atherosclerosis calcifications -X-ray showed left basilar density likely atelectasis, left-sided rib fractures -Forearm x-ray with no acute abnormality. Humerus x-ray old left clavicular trauma no acute abnormality -Pelvis x-ray no acute abnormality. Tibia-fibula x-ray showed osteopenia no acute abnormality -Abdomen CT and pelvis showed 1 of the known left rib fracture is again visualized. No evidence of acute visceral injury. Benign-appearing cystic structures in the liver. Mild to moderate diverticulosis. -Cervical spine CT showed no fracture or dislocation, degenerative changes with patent central canal, significant carotid artery atherosclerotic calcification -Pain management with bowel regimen -Physical therapy, occupational therapy eval and treat -Started on IV Vanco for her wounds, discontinued -BC NGTD Complaints of hoarseness in her voice -GI was consulted. They have discussed EGD options with patient also colonoscopy as she was also complaining of of tarry stools. However patient cannot decide whether to go with the procedure or not. This is been extensively discussed with patient if she will not proceed with the EGD she can follow up with GI and outpatient. -Speech therapy for swallow evaluation. Patient passed evaluation on regular thin liquid diet HTN -Continue home medication lisinopril. DC beta-jeremiah for now -Monitor for orthostatic hypotension DVT prop SCDs Full code Discussed with patient, nursing, Dr. Bhatti, Dr. Salinas Discharge Planning: Plan to DC to SNF, pending loop recorder. Possible DC Friday
--- NOTE | 2018-08-23 16:06 | P.PNCA ---
Subjective Interval history: Consult dictated, not transcribed yet No events overnight Medications and Allergies Active Medications: Active Medications Hydrocodone Bitart/Acetaminophen ([place] 5/325) 1 tab PO Q6H PRN PRN Reason: Pain 5-10 Last Admin: 08/22/18 22:34 Dose: 1 tab Al Hydroxide/Mg Hydroxide (Milk Of Magnesia Liq) 30 ml PO Q12H PRN PRN Reason: Mild Constipation Amoxicillin/Clavulanate Potassium (Augmentin 875/125 Mg) 1 tab PO Q12HR [facility] Last Admin: 08/23/18 08:17 Dose: 1 tab Bisacodyl (Dulcolax Supp) 10 mg RECTAL DAILY PRN PRN Reason: SEVERE CONSITIPATION Ferrous Sulfate (Ferosul) 325 mg PO DAILY [facility] Last Admin: 08/23/18 08:17 Dose: 325 mg Lactulose (Lactulose Liq) 30 ml PO DAILY PRN PRN Reason: SEVERE CONSITIPATION Lisinopril (Prinivil) 10 mg PO DAILY [facility] Last Admin: 08/23/18 08:17 Dose: 10 mg Metoprolol Tartrate (Lopressor) 12.5 mg PO BID [facility] Last Admin: 08/22/18 20:17 Dose: 12.5 mg Miscellaneous (Pill Splitter) [address] [facility] Pantoprazole Sodium (Protonix) 20 mg PO DAILY [facility] Last Admin: 08/23/18 08:17 Dose: 20 mg Pravastatin Sodium (Pravachol) 10 mg PO DAILY [facility] Last Admin: 08/23/18 08:17 Dose: 10 mg Senna/Docusate Sodium (Adrienne-Colace) 1 tab PO BID [facility] Last Admin: 08/23/18 08:17 Dose: 1 tab Sennosides (Senokot) 17.2 mg PO Q12H PRN PRN Reason: Moderate Constipation Sodium Chloride (Ns Flush) 2 ml IV.FLUSH BID [facility] Last Admin: 08/23/18 08:17 Dose: 2 ml Sodium Chloride (Ns Flush) 2 ml IV.FLUSH PRN PRN PRN Reason: FLUSH AFTER USING IV ACCESS Vitamin D (Vitamin D3) 1,000 unit PO DAILY [facility] Last Admin: 08/23/18 08:17 Dose: 1,000 unit Allergies Allergy/AdvReac Type Severity Reaction Status Date / Time codeine AdvReac Intermediate NAUSEA Verified 08/19/18 12:32 Home Medications Medication Instructions Recorded Confirmed Type lisinopril 10 mg PO DAILY 06/16/18 08/19/18 History omeprazole 20 mg PO DAILY 06/16/18 08/19/18 History Ca carb-D3-mag [id number] 2 tab PO DAILY 08/15/18 08/19/18 History [Caltrate + D3 Plus Minerals] cholecalciferol (vitamin D3) 1,000 unit PO DAILY 08/15/18 08/19/18 History [Vitamin D3] ferrous sulfate 325 mg PO DAILY 08/15/18 08/19/18 History hydrocodone-acetaminophen 1 tab PO Q6H PRN 08/15/18 08/19/18 History pravastatin 10 mg PO DAILY 08/15/18 08/19/18 History sennosides-docusate sodium 1 tab PO BID 08/19/18 08/19/18 History [Senna-S] Physical Exam Vital signs: Vital Signs 08/22/18 17:42 08/22/18 20:00 08/22/18 20:20 Temperature 97.6 F Pulse Rate 65 Respiratory Rate 18 Blood Pressure 95/54 L Pulse Oximetry 96 97 96 08/23/18 00:00 08/23/18 00:12 08/23/18 04:00 Temperature 97.6 F 97.6 F Pulse Rate 62 60 Respiratory Rate 18 18 18 Blood Pressure 105/50 L 100/53 L Pulse Oximetry 98 99 08/23/18 08:00 08/23/18 09:51 08/23/18 11:52 Temperature 97.6 F 98.1 F Pulse Rate 69 97 H Respiratory Rate 18 18 Blood Pressure 126/68 113/57 L Pulse Oximetry 96 96 97 08/23/18 15:40 Temperature 97.4 F L Pulse Rate 80 Respiratory Rate 18 Blood Pressure 118/59 L Pulse Oximetry 95 Intake & Output 08/22/18 08/23/18 08/23/18 18:59 06:59 18:59 Intake Total 700 / 700 Output Total 300 / 300 Balance 400 / 400 Weight 97.6 kg Intake: IV 100 / 100 Levaquin 500 mg Premix Inj 500 100 / 100 mg In 100 ml @ 100 mls/hr IV. SIG Q24H [facility] Rx#:[id number] Oral 600 / 600 Output: Urine 300 / 300 Other: # Voids 3 1 Date of Last Bowel Movement 08/21/18 08/22/18 08/22/18 Narrative: GENERAL: This is a well-nourished, elderly female, in no apparent distress. SKIN: Warm and dry.Multiple various skin tears on the left arm and left legs as well as the right leg. Multiple ecchymosis in various healing stages also noted. HEENT: Normocephalic. Pupils equal round and reactive. Nose without bleeding. Airway patent. NECK: Trachea midline. CARDIOVASCULAR: Regular rate and rhythm without murmurs, gallops, or rubs. RESPIRATORY: Clear to auscultation. Breath sounds equal bilaterally. No wheezes , rales, or rhonchi. GASTROINTESTINAL: Abdomen soft, non-tender, nondistended. Bowel Sounds normoactive x4. MUSCULOSKELETAL: Extremities without clubbing, cyanosis. Left upper extremity trace edema, limited R OM. Bilateral lower extremity with spontaneous movement , 4/5 NEUROLOGICAL: Awake and alert. Repetitive, forgetful. Hard of hearing. No focal neuro deficit. Moves all extremities. Normal speech. Results 08/22/18 04:30 08/22/18 04:30 CBC 08/22/18 Range/Units 04:30 WBC 6.9 (4.0-11.0) th/mm3 RBC 3.35 L (4.00-5.30) mil/mm3 Hgb 10.6 L (11.6-15.3) gm/dL Hct 31.0 L (35.0-46.0) % Plt Count 247 (150-450) th/mm3 Neut # (Auto) 4.4 (1.8-7.7) th/mm3 Lymph # (Auto) 1.3 (1.0-4.8) th/mm3 [place] # (Auto) 1.0 H (0.0-0.9) th/mm3 Eos # (Auto) 0.2 (0.0-0.4) th/mm3 Baso # (Auto) 0.0 (0.0-0.2) th/mm3 Comprehensive Metabolic Panel 08/22/18 Range/Units 04:30 Sodium 137 (136-145) meq/L Potassium 3.7 (3.5-5.1) meq/L Chloride 104 (98-107) meq/L Carbon Dioxide 27.8 (21.0-32.0) meq/L BUN 16 (7-18) mg/dL Creatinine 0.83 (0.50-1.00) mg/dL Calcium 8.3 L (8.5-10.1) mg/dL Intake and Output 08/23/18 08/23/18 08/23/18 06:59 14:59 22:59 Other: # Voids 1 Date of Last Bowel Movement 08/22/18 Weight 97.6 kg - Imaging and Cardiology Imaging: Impressions Head MRI 08/21/18 00:00 CONCLUSION: 1. This examination is significantly degraded by motion artifact. 2. No gross acute intracranial abnormality. 3. Fluid signal within the left mastoid air cells. Clinical evaluation for any signs of acute mastoiditis suggested. Head MRA 08/21/18 00:00 CONCLUSION: 1. Study degraded by motion. 2. No acute abnormality observed. 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
--- NOTE | 2018-08-24 07:14 | MB ---
cc: Santo Salinas DO DATE: 08/22/2018 REASON FOR CONSULTATION: Syncope. HISTORY OF PRESENT ILLNESS: Cindy Chandler is a pleasant 87-year-old female who presented to [facility] Emergency Room for a syncopal episode. Looking back, she has been in the emergency room multiple times for falls. These episodes started since February and become more frequent, but sporadic. She states that she has had episodes where she "falls asleep." When she has these episodes, it does take a few seconds to wake her up. She has had these episodes while walking, sitting and eating, and also on a recumbent bike. After she does come to, she is somewhat confused. She was seen by neurology and workup had been done from their standpoint without a possible cause found. I was asked by Neurology to further evaluate for rhythm analysis. In speaking to the patient, she states that she previously saw Dr. Dove a number of years ago for atrial fibrillation and at that time, he discharged her from the practice as there was nothing else to do. PAST MEDICAL HISTORY: 1. Vertigo. 2. Hyperlipidemia. 3. Atrial fibrillation. 4. Osteoporosis. 5. Pituitary abnormality. PAST SURGICAL HISTORY: 1. Appendectomy. 2. Fracture of left hip with reduction and intramedullary nail fixation. ALLERGIES: CODEINE. MEDICATIONS: 1. Omeprazole 20 mg daily. 2. Lisinopril 10 mg daily. 3. Iron 325 mg daily. 4. Hydrocodone/acetaminophen 5/325 mg every 6 hours as needed. 5. Pravastatin 10 mg daily. FAMILY HISTORY: Denies premature coronary artery disease or sudden cardiac within the family. SOCIAL HISTORY: Denies tobacco, alcohol or drug abuse. REVIEW OF SYSTEMS: Fourteen systems were reviewed including osteopathic. Pertinent positives and negatives above, otherwise negative. PHYSICAL EXAMINATION: VITAL SIGNS: Temperature 98.1, heart rate 85, blood pressure 131/62, respirations 20, pulse oximetry 96% on room air. GENERAL: The patient appears to be a frail, elderly female. No acute distress. HEENT: Extraocular muscles intact. Mucous membranes moist. NECK: Supple. No JVD at 45 degrees. No carotid bruits heard bilaterally. Carotid upstroke is brisk in nature. HEART: Regular rate and rhythm. Positive first and second heart sounds with a I/ crescendo decrescendo murmur to the right sternal border. LUNGS: Clear to auscultation bilaterally. No wheezes, rales or rhonchi. ABDOMEN: Soft, nontender, nondistended. No organomegaly noted. EXTREMITIES: Show no clubbing, cyanosis or edema. NEUROLOGIC: No focal deficits. SKIN: Warm, dry and intact. OSTEOPATHIC: Mild kyphoscoliosis. No lordosis or paraspinal tender points. LABORATORY DATA: Hemoglobin 10.6, hematocrit 31.0, platelets 247. Potassium 3.7, BUN 16, creatinine 0.83. Electrocardiogram (08/19/2018 at 1459 hours): Sinus rhythm with occasional PVC. IMPRESSION: 1. Multiple syncopal episodes. 2. Acute mastoiditis. 3. History of atrial fibrillation. 4. History of hypertension. RECOMMENDATIONS: 1. Ms. Chandler appears to have had multiple syncopal episodes. She has been worked up from a neurology standpoint without a cause found for them. 2. She underwent an echocardiogram, which showed an ejection fraction of 60-65% with stage I diastolic dysfunction and no significant valvular heart disease. 3. My overall concern is for possible arrhythmia, more likely bradycardia or AV block, as a possible cause for her episodes. I believe that she should have a loop recorder placed as these episodes have been sporadic in nature. 4. I discussed this with the patient and her family and overall they are in agreement. 5. They are considering trying to get her to a SNF down in [place]. It is unsure whether she will return here afterwards or stay in [place] with them after this. Logistically, I think that a loop recorder should be placed now and recordings will be sent to my office. If she decides to stay in [place], she will find a senior analyst market intelligence there and it will be transferred over to them. 6. Per the patient, she has a history of paroxysmal atrial fibrillation for which she was treated with just metoprolol and no anticoagulation. Because of her multiple falls recently, she is not a candidate for anticoagulation. 7. Further recommendations will be made based on the hospital course. Thank you for allowing me to see Cindy Chandler. If there are any questions, please do not hesitate to call. Santo Salinas DO VGP/rw , 12:23 AM , 03:59 AM
[2018-08-24 07:53] LABS: Baso % (Auto) 0.5 % (0.0-2.0); Eos # (Auto) 0.2 th/mm3 (0.0-0.4); Eos % (Auto) 3.2 % (0.0-4.0); Hematocrit 32.2 % (35.0-46.0); Lymph # (Auto) 1.2 th/mm3 (1.0-4.8); Lymph % (Auto) 17.1 % (9.0-44.0); Mean Corpuscular HGB Conc 34.2 % (32.0-36.0); Mean Corpuscular Hemoglobin 31.6 pg (27.0-34.0); Mean Corpuscular Volume 92.3 fL (80.0-100.0); Mean Platelet Volume 8.7 fL (7.0-11.0); Mono # (Auto) 0.8 th/mm3 (0.0-0.9); Mono % (Auto) 11.3 % (0.0-8.0); Neut # (Auto) 4.7 th/mm3 (1.8-7.7); Neut % (Auto) 67.9 % (16.0-70.0); Platelet Count 299 th/mm3 (150-450); Red Blood Count 3.49 mil/mm3 (4.00-5.30); Red Cell Distribution Width 13.7 % (11.6-17.2)
[2018-08-24 08:09] LABS: Calcium 8.6 mg/dL (8.5-10.1); Carbon Dioxide 26.8 meq/L (21.0-32.0)
[2018-08-24] MEDS: Lisinopril 10 MG Tablet PO SCH (09:20)
[2018-08-24] MEDS: Pantoprazole Sodium 20 MG DR Tablet PO SCH (09:20)
[2018-08-24] MEDS: Amoxicillin/Clavulanate 875/125 MG Tablet PO SCH ×2 (09:20→20:59)
[2018-08-24] MEDS: Senna/Docusate Sodium 8.6/50 MG Tablet PO SCH ×2 (09:20→20:59)
[2018-08-24] MEDS: Sodium Chloride 0.9% 2 ML Flush BID IV.FLUSH SCH ×2 (09:21→20:59)
[2018-08-24] MEDS: Ferrous Sulfate 325 MG Tablet PO SCH (09:21)
[2018-08-24] MEDS ORDERED: fentaNYL Citrate Inj 100 MCG/2 ML Ampul ONE (10:51)
[2018-08-24] MEDS ORDERED: Mupirocin 2% Nasal Oint Topical Syringe EACH NARE SCH (11:30)
[2018-08-24] MEDS ORDERED: Chlorhexidine Gluconate 2% 1 Pack (2 Cloths) TOPICAL SCH (11:30)
[2018-08-24] MEDS ORDERED: ceFAZolin 2 GM/NS 100 ML IV; Q8H IV.SIG ONE ×2 (12:00)
--- NOTE | 2018-08-24 13:51 | P.PNCA ---
Subjective Interval history: No events overnight Loop recorder placed Medications and Allergies Active Medications: Active Medications Hydrocodone Bitart/Acetaminophen ([place] 5/325) 1 tab PO Q6H PRN PRN Reason: Pain 5-10 Last Admin: 08/22/18 22:34 Dose: 1 tab Al Hydroxide/Mg Hydroxide (Milk Of Magnesia Liq) 30 ml PO Q12H PRN PRN Reason: Mild Constipation Amoxicillin/Clavulanate Potassium (Augmentin 875/125 Mg) 1 tab PO Q12HR [facility] Stop: 08/30/18 08:59 Last Admin: 08/24/18 09:20 Dose: 1 tab Bisacodyl (Dulcolax Supp) 10 mg RECTAL DAILY PRN PRN Reason: SEVERE CONSITIPATION Chlorhexidine Gluconate (Chlorhexidine 2% Cloth) 3 pack TOPICAL WATCH DIAL PRINTER [facility] Stop: 08/27/18 11:16 Last Admin: 08/24/18 10:10 Dose: 3 pack Ferrous Sulfate (Ferosul) 325 mg PO DAILY [facility] Last Admin: 08/24/18 09:21 Dose: 325 mg Lactulose (Lactulose Liq) 30 ml PO DAILY PRN PRN Reason: SEVERE CONSITIPATION Lisinopril (Prinivil) 10 mg PO DAILY [facility] Last Admin: 08/24/18 09:20 Dose: 10 mg Metoprolol Tartrate (Lopressor) 12.5 mg PO BID [facility] Last Admin: 08/22/18 20:17 Dose: 12.5 mg Miscellaneous (Pill Splitter) 1 each OTHER [facility] Mupirocin (Bactroban 2% Nasal Oint) 1 applicatio EACH N[employer] WATCH DIAL PRINTER [facility] Stop: 08/27/18 11:16 Pantoprazole Sodium (Protonix) 20 mg PO DAILY [facility] Last Admin: 08/24/18 09:20 Dose: 20 mg Povidone Iodine (Betadine 5% Antisepsis Kit) 1 applicatio EACH [employer] D[employer] [facility] Stop: 08/27/18 11:16 Last Admin: 08/24/18 10:10 Dose: 1 applicatio Pravastatin Sodium (Pravachol) 10 mg PO DAILY [facility] Last Admin: 08/24/18 09:20 Dose: 10 mg Senna/Docusate Sodium ([place]ne-Colace) 1 tab PO BID [facility] Last Admin: 08/24/18 09:20 Dose: 1 tab Sennosides (Senokot) 17.2 mg PO Q12H PRN PRN Reason: Moderate Constipation Sodium Chloride (Ns Flush) 2 ml IV.FLUSH BID [facility] Last Admin: 08/24/18 09:21 Dose: 2 ml Sodium Chloride (Ns Flush) 2 ml IV.FLUSH PRN PRN PRN Reason: FLUSH AFTER USING IV ACCESS Vitamin D (Vitamin D3) 1,000 unit PO DAILY [facility] Last Admin: 08/24/18 09:20 Dose: 1,000 unit Allergies Allergy/AdvReac Type Severity Reaction Status Date / Time codeine AdvReac Intermediate NAUSEA Verified 08/19/18 12:32 Home Medications Medication Instructions Recorded Confirmed Type lisinopril 10 mg PO DAILY 06/16/18 08/19/18 History omeprazole 20 mg PO DAILY 06/16/18 08/19/18 History Ca carb-D3-mag [id number] 2 tab PO DAILY 08/15/18 08/19/18 History [Caltrate + D3 Plus Minerals] cholecalciferol (vitamin D3) 1,000 unit PO DAILY 08/15/18 08/19/18 History [Vitamin D3] ferrous sulfate 325 mg PO DAILY 08/15/18 08/19/18 History hydrocodone-acetaminophen 1 tab PO Q6H PRN 08/15/18 08/19/18 History pravastatin 10 mg PO DAILY 08/15/18 08/19/18 History sennosides-docusate sodium 1 tab PO BID 08/19/18 08/19/18 History [Senna-S] Physical Exam Vital signs: Vital Signs 08/23/18 15:40 08/23/18 20:00 08/23/18 20:28 Temperature 97.4 F L 97.6 F Pulse Rate 80 90 Respiratory Rate 18 18 Blood Pressure 118/59 L 97/52 L Pulse Oximetry 95 99 98 08/24/18 00:00 08/24/18 04:00 08/24/18 08:00 Temperature 97.9 F 97.6 F 97.6 F Pulse Rate 89 71 78 Respiratory Rate 20 18 17 Blood Pressure 135/65 156/78 H Pulse Oximetry 95 95 99 08/24/18 12:00 08/24/18 12:56 Temperature 97.3 F L Pulse Rate 68 70 Respiratory Rate 17 Blood Pressure 113/56 L Pulse Oximetry 99 Intake & Output 08/23/18 08/24/18 08/24/18 18:59 06:59 18:59 Intake Total 240 / 240 100 / 100 Output Total 100 / 100 Balance 140 / 140 100 / 100 Weight 78 kg Intake: IV 100 / 100 Ancef Inj 2,000 MG In NS Inj 80 100 / 100 ML @ 200 mls/hr IV.SIG ONCE ONE Rx#:[id number] Oral 240 / 240 Output: Urine 100 / 100 Other: # Voids 2 # Incontinent Voids 1 Date of Last Bowel Movement 08/22/18 08/22/18 08/22/18 Narrative: GENERAL: This is a well-nourished, elderly female, in no apparent distress. SKIN: Warm and dry.Multiple various skin tears on the left arm and left legs as well as the right leg. Multiple ecchymosis in various healing stages also noted. HEENT: Normocephalic. Pupils equal round and reactive. Nose without bleeding. Airway patent. NECK: Trachea midline. CARDIOVASCULAR: Regular rate and rhythm without murmurs, gallops, or rubs. RESPIRATORY: Clear to auscultation. Breath sounds equal bilaterally. No wheezes , rales, or rhonchi. GASTROINTESTINAL: Abdomen soft, non-tender, nondistended. Bowel Sounds normoactive x4. MUSCULOSKELETAL: Extremities without clubbing, cyanosis. Left upper extremity trace edema, limited R OM. Bilateral lower extremity with spontaneous movement , 4/5 NEUROLOGICAL: Awake and alert. Repetitive, forgetful. Hard of hearing. No focal neuro deficit. Moves all extremities. Normal speech. Results 08/24/18 06:15 08/24/18 06:15 CBC 08/24/18 Range/Units 06:15 WBC 7.0 (4.0-11.0) th/mm3 RBC 3.49 L (4.00-5.30) mil/mm3 Hgb 11.0 L (11.6-15.3) gm/dL Hct 32.2 L (35.0-46.0) % Plt Count 299 (150-450) th/mm3 Neut # (Auto) 4.7 (1.8-7.7) th/mm3 Lymph # (Auto) 1.2 (1.0-4.8) th/mm3 [place] # (Auto) 0.8 (0.0-0.9) th/mm3 Eos # (Auto) 0.2 (0.0-0.4) th/mm3 Baso # (Auto) 0.0 (0.0-0.2) th/mm3 Comprehensive Metabolic Panel 08/24/18 Range/Units 06:15 Sodium 141 (136-145) meq/L Potassium 4.0 (3.5-5.1) meq/L Chloride 105 (98-107) meq/L Carbon Dioxide 26.8 (21.0-32.0) meq/L BUN 14 (7-18) mg/dL Creatinine 0.68 (0.50-1.00) mg/dL Calcium 8.6 (8.5-10.1) mg/dL Intake and Output 08/23/18 08/24/18 08/24/18 22:59 06:59 14:59 Intake Total 240 / 240 100 / 100 Output Total 100 / 100 Balance 140 / 140 100 / 100 Intake: IV 100 / 100 Ancef Inj 2,000 MG In NS Inj 80 100 / 100 ML @ 200 mls/hr IV.SIG ONCE ONE Rx#:[id number] Oral 240 / 240 Output: Urine 100 / 100 Other: # Voids 2 # Incontinent Voids 1 Date of Last Bowel Movement 08/22/18 08/22/18 Weight 78 kg Assessment and Plan - Assessment (1) Falls Code(s): W19.XXXA - Unspecified fall, initial encounter Status: Acute (2) Afib Code(s): I48.91 - Unspecified atrial fibrillation Status: Acute (3) Syncope Code(s): R55 - Syncope and collapse Status: Acute - Plan 1) Multiple syncopal episodes Unsure of cause Neurology work up negative 2) Loop recorder placed Will plan on going to SNF near family in [place] If afterwards she stays there then will transfer 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
--- NOTE | 2018-08-24 14:29 | P.PNIM ---
Subjective Interval history: Follow-up visit status post fall, syncopal episode, HTN, HLD, status post loop recorder placement today. Patient seen and examined laying in bed awake alert and oriented x2, with repeated statements in conversation. Slight confusion. Family/caregiver at bedside. Discuss concern of patient falling many times at least 4 times, had fractured left hip from previous fall, had fractured left shoulder from 3 years ago. Caregiver stated that the family plan to bring the patient closer to them in [place], and arranging for SNF placement. Patient denies any pain or shortness of breath, denies any headache or dizziness, denies any nausea or vomiting. Physical Exam Vital signs: Vital Signs 08/23/18 15:40 08/23/18 20:00 08/23/18 20:28 Temperature 97.4 F L 97.6 F Pulse Rate 80 90 Respiratory Rate 18 18 Blood Pressure 118/59 L 97/52 L Pulse Oximetry 95 99 98 08/24/18 00:00 08/24/18 04:00 08/24/18 08:00 Temperature 97.9 F 97.6 F 97.6 F Pulse Rate 89 71 78 Respiratory Rate 20 18 17 Blood Pressure 135/65 156/78 H Pulse Oximetry 95 95 99 08/24/18 12:56 Temperature Pulse Rate 70 Respiratory Rate Blood Pressure Pulse Oximetry Intake & Output 08/23/18 08/24/18 08/24/18 18:59 06:59 18:59 Intake Total 240 / 240 100 / 100 Output Total 100 / 100 Balance 140 / 140 100 / 100 Weight 78 kg Intake: IV 100 / 100 Ancef Inj 2,000 MG In NS Inj 80 100 / 100 ML @ 200 mls/hr IV.SIG ONCE ONE Rx#:[id number] Oral 240 / 240 Output: Urine 100 / 100 Other: # Voids 2 # Incontinent Voids 1 Date of Last Bowel Movement 08/22/18 08/22/18 Narrative: GENERAL: Well-developed, well-nourished, elderly female, in no apparent distress SKIN: Warm and dry. Multiple skin tears on the left arm and bilateral lower legs. Left upper chest surgical site incision, dressed dry and intact no redness no drainage no bleeding HEAD: Atraumatic. Normocephalic. left facial ecchymosis EYES: Pupils equal and round. No scleral icterus. No injection or drainage. ENT: No nasal bleeding or discharge. Mucous membranes pink and moist. NECK: Trachea midline. No JVD. CARDIOVASCULAR: Regular rate and rhythm. RESPIRATORY: No accessory muscle use. Clear to auscultation. Breath sounds equal bilaterally. GASTROINTESTINAL: Abdomen soft, non-tender, nondistended. Hepatic and splenic margins not palpable. MUSCULOSKELETAL: Extremities without clubbing, cyanosis, or edema. No obvious deformities. NEUROLOGICAL: Awake and alert. No obvious cranial nerve deficits. Generalized weakness, bilateral lower extremity with limited strength, moving all 4 extremities. Normal speech. PSYCHIATRIC: Appropriate mood and affect; insight and judgment unreliable, with confusion Results - Labs CBC & Chem 7: 08/24/18 06:15 08/24/18 06:15 Laboratory Results - last 24 hr 08/21/18 08/24/18 08/24/18 19:34 06:15 06:15 WBC 7.0 RBC 3.49 L Hgb 11.0 L Hct 32.2 L MCV 92.3 MCH 31.6 MCHC 34.2 RDW 13.7 Plt Count 299 MPV 8.7 Neut % (Auto) 67.9 Lymph % (Auto) 17.1 [place] % (Auto) 11.3 H Eos % (Auto) 3.2 Baso % (Auto) 0.5 Neut # (Auto) 4.7 Lymph # (Auto) 1.2 [place] # (Auto) 0.8 Eos # (Auto) 0.2 Baso # (Auto) 0.0 WBC Differential . Differential Comment Auto diff final Sodium 141 Potassium 4.0 Chloride 105 Carbon Dioxide 26.8 Anion Gap 9 BUN 14 Creatinine 0.68 Estimated GFR 82 L Random Glucose 100 Calcium 8.6 RPR Nonreactive Microbiology 08/19/18 17:55 Blood - Peripheral Aerobic Blood Culture - Final No growth in 5 days 08/19/18 17:55 Blood - Peripheral Anaerobic Blood Culture - Final No growth in 5 days 08/19/18 17:50 Blood - Peripheral Aerobic Blood Culture - Final No growth in 5 days 08/19/18 17:50 Blood - Peripheral Anaerobic Blood Culture - Final No growth in 5 days Assessment and Plan - Plan Patient is an 87-year-old female who came [place] [facility] with past medical history of vertigo, left hip fracture, HLD, HTN who initially came to the hospital for evaluation status post fall, syncopal episode. Syncope, acute -CT Head -no acute hemorrhage or mass-effect. Soft tissue swelling of the left parietal bone with no evidence of fracture. Opacification of the left mastoid air cells consistent with mastoiditis. -US Carotids showed right internal carotid artery indicates less than 50% stenosis. Left internal carotid artery indicated less than 50% stenosis -EKG, No QT prolongation, sinus rhythm with occasional ventricular premature complexes -Echocardiogram EF 65-70%. -Orthostatic BP -Follow-up labs does not show anemia, or any electrolyte imbalance. Troponin negative -Possible orthostatic syncope, report of postural change leading to orthostatic hypotension, patient also on beta-jeremiah. Spoke with niece, caregiver. Appears to be that patient has more syncopal episodes in the outpatient setting and even occurring without patient changing her position, not situational. -Consult neurology for further evaluation, appreciate recommendations. -Continue telemetry monitoring. -MRI motion artifact. No gross acute intracranial abnormality. Fluid signal within the left mastoid air cells. Clinical evaluation for any signs of acute mastoiditis -MRA no acute abnormality -EEG negative -Cardiology following s/p loop recorder with Dr. Salinas. To follow up with pot [facility] as an out patient -Plan to DC to SNF close to Family in [place] when placement arranged, Family and beater worker helper making arrangements Mastoiditis, acute -Continue Augmentin x 7-10 days. Start date 08/23 -This may also contribute to impaired balance of patient. Status post fall Multiple open wound, abrasion -CT Chest showed multiple acute left-sided rib fractures. Questionable distal left clavicular fracture. No pneumothorax. Significant coronary artery atherosclerosis calcifications -X-ray showed left basilar density likely atelectasis, left-sided rib fractures -Forearm x-ray with no acute abnormality. Humerus x-ray old left clavicular trauma no acute abnormality -Pelvis x-ray no acute abnormality. Tibia-fibula x-ray showed osteopenia no acute abnormality -Abdomen CT and pelvis showed 1 of the known left rib fracture is again visualized. No evidence of acute visceral injury. Benign-appearing cystic structures in the liver. Mild to moderate diverticulosis. -Cervical spine CT showed no fracture or dislocation, degenerative changes with patent central canal, significant carotid artery atherosclerotic calcification -Pain management with bowel regimen -Physical therapy, occupational therapy eval and treat -s/p IV Vanco for her wounds, discontinued -Blood cx: no growth x 5 days Complaints of hoarseness in her voice -GI was consulted. They have discussed EGD options with patient also colonoscopy as she was also complaining of of tarry stools. However patient cannot decide whether to go with the procedure or not. This is been extensively discussed with patient if she will not proceed with the EGD she can follow up with GI and outpatient. -Speech therapy for swallow evaluation. Patient passed evaluation on regular thin liquid diet -improving HTN -Continue home medication lisinopril. DC beta-jeremiah -Monitor for orthostatic hypotension DVT prop SCDs Code Status: full code Discussed Condition With: patient, caregiver and nurse Discharge Planning: Plan to discharge to SNF/rehabilitation close to family in [place]. beater worker helper/ family to assist with placement
--- NOTE | 2018-08-24 23:57 | MR ---
cc: Santo Salinas DO DATE: 08/24/2018 PROCEDURE PERFORMED: Placement of a Medtronic Revel LINQ loop recorder (model #LNQ11, serial #[id number]), moderate sedation of 15 minutes. PREPROCEDURE DIAGNOSIS: Multiple episodes of syncope. POSTPROCEDURE DIAGNOSIS: Placement of a Medtronic loop recorder. MEDICATIONS: Versed 0.5 mg, fentanyl 25 mcg, Ancef 2 grams. MODERATE SEDATION: 15 minutes. ESTIMATED BLOOD LOSS: Minimal. PROCEDURAL SUMMARY: Cindy Chandler is a pleasant 87-year-old female who presented to [facility] due to falls and syncope. She has had multiple episodes of syncope and has been worked up by neurology, who has yet to find a cause. Because of this, she was recommended consideration of loop recorder placement. Risks, benefits and alternatives were explained to her and her family and she consented to such. She was brought to the holding area and prepped in the usual sterile fashion. Lidocaine was used to anesthetize the left anterior chest wall. A small incision was placed over the fourth intercostal to the left of the sternum and the loop recorder was injected underneath the skin. Pressure was held for hemostasis. The patient tolerated the procedure well. HARDWARE: Medtronic Reveal LINQ (model #LNQ11, serial #[id number]). R WAVE: 2.12 millivolts. SETTINGS: Tachycardia greater than 143 beats per minute, bradycardia less than 30 beats per minute, pause greater than 3 seconds. IMPRESSION: 1. Multiple syncopal episodes. 2. Placement of a Medtronic Reveal LINQ loop recorder. RECOMMENDATIONS: 1. Ms. Chandler underwent placement of a loop recorder and tolerated the procedure well. 2. She will be watched overnight and if stable, plan for discharge to SNF when possible. 3. She is planning to go to a SNF near her family in [place]. If she decides to stay in [place], she will find a [employer] there and the recordings will be transferred to them. Until that plan, recordings will be to my office and if any concerns, I will call her family and have her evaluated out there as necessary. Thank you for allowing me to see Cindy Chandler. If there are any questions, please do not hesitate to call. DO AMANDA Cage/alvarez , 11:35 PM , 11:43 PM
--- NOTE | 2018-08-25 09:23 | P.PNIM ---
Subjective Interval history: Follow-up visit status post fall, syncopal episode, HTN, HLD, status post loop recorder placement. Patient seen and examined laying in bed, stated sleep well last night. Patient denies any chest pain or shortness of breath, denies any palpitation. Denies any headache or dizziness, denies any nausea or vomiting , denies any diarrhea or constipation. However she stated she thought she move her bowels but there is nothing in the commode. Stated most likely gas. Discussed will start on a stool softener. Patient denies any fever or chills. Discussed with director social welfare discharge planning, stated still looking for a place/SNF in [place], no when accepted yet as of today. Physical Exam Vital signs: Vital Signs 08/24/18 12:00 08/24/18 12:56 08/24/18 16:00 Temperature 97.3 F L 97.4 F L Pulse Rate 68 70 74 Respiratory Rate 17 17 Blood Pressure 113/56 L 139/67 Pulse Oximetry 99 99 08/24/18 20:00 08/24/18 23:50 08/25/18 00:00 Temperature 98 F 98.1 F Pulse Rate 89 89 83 Respiratory Rate 18 18 Blood Pressure 116/56 L 114/58 L Pulse Oximetry 92 L 93 L 08/25/18 04:00 08/25/18 04:10 Temperature 97.5 F L Pulse Rate 103 H 69 Respiratory Rate 21 Blood Pressure 188/98 H Pulse Oximetry 94 L Intake & Output 08/24/18 08/25/18 08/25/18 18:59 06:59 18:59 Intake Total 820 / 820 Balance 820 / 820 Intake: IV 100 / 100 Ancef Inj 2,000 MG In NS Inj 80 100 / 100 ML @ 200 mls/hr IV.SIG ONCE ONE Rx#:[id number] Oral 720 / 720 Other: # Voids 3 Date of Last Bowel Movement 08/22/18 08/22/18 Narrative: GENERAL: Well-developed, well-nourished, elderly female, in no apparent distress SKIN: Warm and dry. Multiple skin tears on the left arm and bilateral lower legs. Left upper chest surgical site incision, dressed dry and intact no redness no drainage no bleeding HEAD: Atraumatic. Normocephalic. left facial ecchymosis EYES: Pupils equal and round. No scleral icterus. No injection or drainage. ENT: No nasal bleeding or discharge. Mucous membranes pink and moist. NECK: Trachea midline. No JVD. CARDIOVASCULAR: Regular rate and rhythm. RESPIRATORY: No accessory muscle use. Clear to auscultation. Breath sounds equal bilaterally. GASTROINTESTINAL: Abdomen soft, non-tender, nondistended. Hepatic and splenic margins not palpable. MUSCULOSKELETAL: Extremities without clubbing, cyanosis, or edema. No obvious deformities. NEUROLOGICAL: Awake and alert. No obvious cranial nerve deficits. Generalized weakness, moving all 4 extremities, bilateral lower extremity with limited strength, . Normal speech. PSYCHIATRIC: Appropriate mood and affect; insight and judgment unreliable, with confusion Results - Labs CBC & Chem 7: 08/24/18 06:15 08/24/18 06:15 Laboratory Results - last 24 hr 08/21/18 19:34 RPR Nonreactive Microbiology 08/19/18 17:55 Blood - Peripheral Aerobic Blood Culture - Final No growth in 5 days 08/19/18 17:55 Blood - Peripheral Anaerobic Blood Culture - Final No growth in 5 days 08/19/18 17:50 Blood - Peripheral Aerobic Blood Culture - Final No growth in 5 days 08/19/18 17:50 Blood - Peripheral Anaerobic Blood Culture - Final No growth in 5 days Assessment and Plan - Plan Patient is an 87-year-old female who came from an [place] with past medical history of vertigo, left hip fracture, HLD, HTN who initially came to the hospital for evaluation status post fall, syncopal episode. Syncope, acute -CT Head -no acute hemorrhage or mass-effect. Soft tissue swelling of the left parietal bone with no evidence of fracture. Opacification of the left mastoid air cells consistent with mastoiditis. -US Carotids showed right internal carotid artery indicates less than 50% stenosis. Left internal carotid artery indicated less than 50% stenosis -EKG, No QT prolongation, sinus rhythm with occasional ventricular premature complexes -Echocardiogram EF 65-70%. -Orthostatic BP -Follow-up labs does not show anemia, or any electrolyte imbalance. Troponin negative -Possible orthostatic syncope, report of postural change leading to orthostatic hypotension, patient also on beta-jeremiah. Spoke with niece, caregiver. Appears to be that patient has more syncopal episodes in the outpatient setting and even occurring without patient changing her position, not situational. -Consult neurology for further evaluation, appreciate recommendations. -Continue telemetry monitoring. -MRI motion artifact. No gross acute intracranial abnormality. Fluid signal within the left mastoid air cells. Clinical evaluation for any signs of acute mastoiditis -MRA no acute abnormality -EEG negative -Cardiology following s/p loop recorder with Dr. Salinas. To follow up with [facility] killer as an out patient -Plan to DC to SNF close to Family in [place] when placement arranged, Family and compressed gas plant worker making arrangements Mastoiditis, acute -Continue Augmentin x 7-10 days. Start date 08/23 -This may also contribute to impaired balance of patient. Status post fall Multiple open wound, abrasion -CT Chest showed multiple acute left-sided rib fractures. Questionable distal left clavicular fracture. No pneumothorax. Significant coronary artery atherosclerosis calcifications -X-ray showed left basilar density likely atelectasis, left-sided rib fractures -Forearm x-ray with no acute abnormality. Humerus x-ray old left clavicular trauma no acute abnormality -Pelvis x-ray no acute abnormality. Tibia-fibula x-ray showed osteopenia no acute abnormality -Abdomen CT and pelvis showed 1 of the known left rib fracture is again visualized. No evidence of acute visceral injury. Benign-appearing cystic structures in the liver. Mild to moderate diverticulosis. -Cervical spine CT showed no fracture or dislocation, degenerative changes with patent central canal, significant carotid artery atherosclerotic calcification -Pain management with bowel regimen -Physical therapy, occupational therapy eval and treat -s/p IV Vanco for her wounds, discontinued -Blood cx: no growth x 5 days Complaints of hoarseness in her voice -GI was consulted. They have discussed EGD options with patient also colonoscopy as she was also complaining of of tarry stools. However patient cannot decide whether to go with the procedure or not. This is been extensively discussed with patient if she will not proceed with the EGD she can follow up with GI and outpatient. -Speech therapy for swallow evaluation. Patient passed evaluation on regular thin liquid diet -improved HTN/ Possible Orthostatic Hypotension -Continue home medication lisinopril. DC beta-jeremiah -Monitor for orthostatic hypotension -apply Bilateral Silvestre Hose -will consider adding midodrine if Orthostatic BP positive Hx of Paroxysmal Afib ECG-Sinus rythm with PVC -HR controlled -not a good candidate for anticoagulant due to frequent falls -monitor HR DVT prop : SCDs, OOB Discharge Planning: Plan to discharge to SNF/rehabilitation close to family in [place]. compressed gas plant worker/ family to assist with placement
[2018-08-25 09:55] VITALS: PULSE 68; RESP 20
[2018-08-25] MEDS: Senna/Docusate Sodium 8.6/50 MG Tablet PO SCH (10:52)
[2018-08-25] MEDS: Amoxicillin/Clavulanate 875/125 MG Tablet PO SCH (10:52)
[2018-08-25] MEDS: Ferrous Sulfate 325 MG Tablet PO SCH (10:52)
[2018-08-25] MEDS: Sodium Chloride 0.9% 2 ML Flush BID IV.FLUSH SCH (10:53)
[2018-08-25] MEDS: Pantoprazole Sodium 20 MG DR Tablet PO SCH (10:53)
[2018-08-25] MEDS: Lisinopril 10 MG Tablet PO SCH (10:53)
--- NOTE | 2018-08-25 11:17 | P.DS ---
Date of admission: 08/19/18 17:38 Primary care physician: Augie Velazquez MD Attending physician on discharge: Abundio Palmer Anticipated date of discharge: 08/25/18 Brief History from admission: 87-year-old female who presents to the ED for evaluation of fall. Patient apparently had a syncopal episode today. She reports that she was on her way to see her doctor when she all of a sudden looked down and apparently she fell. She states that she cannot stop herself. She has a history of vertigo and a pituitary tumor. She has been here about this being the third time in the past week for evaluation of falls. She apparently has been using a walker but unclear if it is helping. I do not suspect that it is. She has multiple skin tears on her skin. Mainly on the left side of the body. Denies any back pain. She is still having a little headache. Denies any pelvic pain denies take any blood thinners. She does have bruising and swelling noted on the left arm and left leg. She has rib pain as well. She lives in an [place]. Per patient her pain is 6 out of 10. She possibly lost consciousness is not 100% sure. Patient update on day of discharge: Follow-up visit status post fall, syncopal episode, HTN, HLD, status post loop recorder placement. Patient seen and examined laying in bed, stated sleep well last night. Patient denies any chest pain or shortness of breath, denies any palpitation. Denies any headache or dizziness, denies any nausea or vomiting , denies any diarrhea or constipation. However she stated she thought she move her bowels but there is nothing in the commode. Stated most likely gas. Discussed will start on a stool softener. Patient denies any fever or chills. Discussed with social media marketing specialist discharge planning, stated still looking for a place/SNF in [place]. DS: Diagnosis - Discharge Diagnosis (1) Syncope Status: Acute (2) Falls Status: Acute (3) Afib Status: Acute DS: Medications - Discharge Medications Prescriptions: sennosides-docusate sodium [Senna Plus] 1 tab PO BID #30 tab DS: Summary Hospital Course: Patient is an 87-year-old female who came from an [place] with past medical history of vertigo, left hip fracture, HLD, HTN who initially came to the hospital for evaluation status post fall, syncopal episode. Neurology workup so far negative , CT of the head no acute hemorrhage or mass-effect, MRA and MRI showed no acute abnormality, EEG is negative. Cardiology placed loop recorder, recommended for the patient to follow-up with own technical artist when transferred to [place], closer to the family.n patient needed a custodial and rehab placement at this time. - Time Spent with Patient Total time spent providing and/or coordinating discharge services: Greater than 30 minutes Exam Vital signs: Vital Signs 08/24/18 12:00 08/24/18 12:56 08/24/18 16:00 Temperature 97.3 F L 97.4 F L Pulse Rate 68 70 74 Respiratory Rate 17 17 Blood Pressure 113/56 L 139/67 Pulse Oximetry 99 99 08/24/18 20:00 08/24/18 23:50 08/25/18 00:00 Temperature 98 F 98.1 F Pulse Rate 89 89 83 Respiratory Rate 18 18 Blood Pressure 116/56 L 114/58 L Pulse Oximetry 92 L 93 L 08/25/18 04:00 08/25/18 04:10 08/25/18 08:00 Temperature 97.5 F L 98.2 F Pulse Rate 103 H 69 68 Respiratory Rate 21 20 Blood Pressure 188/98 H 151/67 H Pulse Oximetry 94 L 95 Intake & Output 08/24/18 08/25/18 08/25/18 18:59 06:59 18:59 Intake Total 820 / 820 Output Total 600 / 600 Balance 820 / 820 -600 / -600 Intake: IV 100 / 100 Ancef Inj 2,000 MG In NS Inj 80 100 / 100 ML @ 200 mls/hr IV.SIG ONCE ONE Rx#:[id number] Oral 720 / 720 Output: Urine 600 / 600 Other: # Voids 3 Date of Last Bowel Movement 08/22/18 08/22/18 Narrative: GENERAL: Well-developed, well-nourished, elderly female, in no apparent distress SKIN: Warm and dry. Multiple skin tears on the left arm and bilateral lower legs. Left upper chest surgical site incision, dressed dry and intact no redness no drainage no bleeding HEAD: Atraumatic. Normocephalic. left facial ecchymosis EYES: Pupils equal and round. No scleral icterus. No injection or drainage. ENT: No nasal bleeding or discharge. Mucous membranes pink and moist. NECK: Trachea midline. No JVD. CARDIOVASCULAR: Regular rate and rhythm. RESPIRATORY: No accessory muscle use. Clear to auscultation. Breath sounds equal bilaterally. GASTROINTESTINAL: Abdomen soft, non-tender, nondistended. Hepatic and splenic margins not palpable. MUSCULOSKELETAL: Extremities without clubbing, cyanosis, or edema. No obvious deformities. NEUROLOGICAL: Awake and alert. No obvious cranial nerve deficits. Generalized weakness, moving all 4 extremities, bilateral lower extremity with limited strength, . Normal speech. PSYCHIATRIC: Appropriate mood and affect; insight and judgment unreliable, with confusion Results Procedures completed during hospitalization: Status post loop recorder placement - Impressions ITS Impressions Carotid Doppler Study 08/19/18 00:00 CONCLUSION: 1. Right Internal Carotid Artery: Findings indicate <50% stenosis. 2. Left Internal Carotid Artery: Findings indicate <50% stenosis. Chest X-Ray 08/19/18 13:25 CONCLUSION: 1. Left basilar density likely atelectasis. 2. Left-sided rib fractures Forearm X-Ray 08/19/18 13:25 CONCLUSION: No acute abnormality. Humerus X-Ray 08/19/18 13:25 CONCLUSION: Old left clavicular trauma. No acute abnormality. Pelvis X-Ray 08/19/18 13:25 CONCLUSION: No acute abnormality. Tibia/Fibula X-Ray 08/19/18 13:25 CONCLUSION: Osteopenia. No acute abnormality. Abdomen/Pelvis CT 08/19/18 13:26 CONCLUSION: 1. One of the known left rib fractures is again visualized. Please see chest CT report for further details. 2. No evidence of acute visceral injury. 3. Benign-appearing cystic structures in the liver. 4. Mild to moderate diverticulosis. Cervical Spine CT 08/19/18 13:26 CONCLUSION: 1. No fracture or dislocation. 2. Degenerative changes as detailed above with patent central canal throughout. 3. Significant carotid artery atherosclerotic calcifications. Chest CT 08/19/18 13:26 CONCLUSION: 1. Multiple acute left-sided rib fractures. 2. Questionable distal left clavicular fracture. 3. No pneumothorax. 4. Significant coronary artery atherosclerotic calcifications. Head CT 08/19/18 13:26 CONCLUSION: 1. No acute hemorrhage or mass effect. 2. Soft tissue swelling over the left parietal bone with no evidence of fracture. 3. Opacification of the left mastoid air cells consistent with mastoiditis. . Videofluoroscopic Swallow 08/20/18 00:00 CONCLUSION: 1. Speech barium swallow, as above. Head MRI 08/21/18 00:00 CONCLUSION: 1. This examination is significantly degraded by motion artifact. 2. No gross acute intracranial abnormality. 3. Fluid signal within the left mastoid air cells. Clinical evaluation for any signs of acute mastoiditis suggested. Head MRA 08/21/18 00:00 CONCLUSION: 1. Study degraded by motion. 2. No acute abnormality observed. Discharge Plan - Discharge Disposition Patient Disposition: Discharge to SNF - Discharge Condition Condition: Stable - Discharge Order Discharge Orders: Discharge Order (Routine); Ordered 08/25/18 Ordered By: Mariya Bliss [place] - Discharge Details Discharge Comment: Follow up with [facility] in 1 week - Physicians Team Primary Care Provider: Augie Velazquez Attending Provider: Abundio Palmer Other Providers: William Whalen MD ; [facility] ; [facility] ; Felipa Neff MD ; [facility] ; Santo Salinas DO
[2018-08-25 13:18] VITALS: BP 126/58; TEMP 98.1; O2SAT 97
--- NOTE | 2018-08-26 00:24 | P.PNCA ---
Subjective Interval history: No events overnight Doing well Medications and Allergies Allergies Allergy/AdvReac Type Severity Reaction Status Date / Time codeine AdvReac Intermediate NAUSEA Verified 08/19/18 12:32 Home Medications Medication Instructions Recorded Confirmed Type lisinopril 10 mg PO DAILY 06/16/18 08/19/18 History omeprazole 20 mg PO DAILY 06/16/18 08/19/18 History Ca carb-D3-mag [id number]-Zn 2 tab PO DAILY 08/15/18 08/19/18 History [Caltrate + D3 Plus Minerals] cholecalciferol (vitamin D3) 1,000 unit PO DAILY 08/15/18 08/19/18 History [Vitamin D3] ferrous sulfate 325 mg PO DAILY 08/15/18 08/19/18 History pravastatin 10 mg PO DAILY 08/15/18 08/19/18 History Physical Exam Vital signs: Vital Signs 08/25/18 04:00 08/25/18 04:10 08/25/18 08:00 Temperature 97.5 F L 98.2 F Pulse Rate 103 H 69 68 Respiratory Rate 21 20 Blood Pressure 188/98 H 151/67 H Pulse Oximetry 94 L 95 08/25/18 12:00 Temperature 98.1 F Pulse Rate 68 Respiratory Rate 20 Blood Pressure 126/58 L Pulse Oximetry 97 Intake & Output 08/25/18 08/25/18 08/26/18 06:59 18:59 06:59 Output Total 600 / 600 Balance -600 / -600 Output: Urine 600 / 600 Other: Date of Last Bowel Movement 08/22/18 08/22/18 Narrative: GENERAL: Well-developed, well-nourished, elderly female, in no apparent distress SKIN: Warm and dry. Multiple skin tears on the left arm and bilateral lower legs. Left upper chest surgical site incision, dressed dry and intact no redness no drainage no bleeding HEAD: Atraumatic. Normocephalic. left facial ecchymosis EYES: Pupils equal and round. No scleral icterus. No injection or drainage. ENT: No nasal bleeding or discharge. Mucous membranes pink and moist. NECK: Trachea midline. No JVD. CARDIOVASCULAR: Regular rate and rhythm. RESPIRATORY: No accessory muscle use. Clear to auscultation. Breath sounds equal bilaterally. GASTROINTESTINAL: Abdomen soft, non-tender, nondistended. Hepatic and splenic margins not palpable. MUSCULOSKELETAL: Extremities without clubbing, cyanosis, or edema. No obvious deformities. NEUROLOGICAL: Awake and alert. No obvious cranial nerve deficits. Generalized weakness, moving all 4 extremities, bilateral lower extremity with limited strength, . Normal speech. PSYCHIATRIC: Appropriate mood and affect; insight and judgment unreliable, with confusion Results 08/24/18 06:15 08/24/18 06:15 CBC 08/24/18 Range/Units 06:15 WBC 7.0 (4.0-11.0) th/mm3 RBC 3.49 L (4.00-5.30) mil/mm3 Hgb 11.0 L (11.6-15.3) gm/dL Hct 32.2 L (35.0-46.0) % Plt Count 299 (150-450) th/mm3 Neut # (Auto) 4.7 (1.8-7.7) th/mm3 Lymph # (Auto) 1.2 (1.0-4.8) th/mm3 [place] # (Auto) 0.8 (0.0-0.9) th/mm3 Eos # (Auto) 0.2 (0.0-0.4) th/mm3 Baso # (Auto) 0.0 (0.0-0.2) th/mm3 Comprehensive Metabolic Panel 08/24/18 Range/Units 06:15 Sodium 141 (136-145) meq/L Potassium 4.0 (3.5-5.1) meq/L Chloride 105 (98-107) meq/L Carbon Dioxide 26.8 (21.0-32.0) meq/L BUN 14 (7-18) mg/dL Creatinine 0.68 (0.50-1.00) mg/dL Calcium 8.6 (8.5-10.1) mg/dL Intake and Output 08/25/18 08/25/18 08/26/18 14:59 22:59 06:59 Output Total 600 / 600 Balance -600 / -600 Output: Urine 600 / 600 Other: Date of Last Bowel Movement 08/22/18 Assessment and Plan - Assessment (1) Falls Code(s): W19.XXXA - Unspecified fall, initial encounter Status: Acute (2) Afib Code(s): I48.91 - Unspecified atrial fibrillation Status: Acute (3) Syncope Code(s): R55 - Syncope and collapse Status: Acute - Plan 1) Multiple syncopal episodes Unsure of cause Neurology work up negative 2) Loop recorder placed Will plan on going to SNF near family in [place] If afterwards she stays there then will 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
== END 2018-08-25 16:52 ==
LOC: NEPE 12:20 → NEDA 17:38 → N05 23:19
PROVIDERS: ADMIT Hospitalist; ATTEND Hospitalist